=== PATIENT | female | born 1945 | race Caucasian/White ===

== ENCOUNTER → 2020-01-05 17:40 | Outpatient (CLI) | payer MEDICARE, SELFPAY ==
[2020-01-05 18:11] LABS: Chol/HDL Ratio 3.3 (1-3.5); Cholesterol 180 mg/dl (140-200); HDL Cholesterol 54 mg/dl (40-60); Triglycerides 165 mg/dl (30-150); VLDL Cholesterol 33 mg/dL (0-40)
[2020-01-05 18:22] LABS: Direct LDL Cholesterol 102.91 mg/dL (100-129)
== END ==
PROVIDERS: Visit Provider Family Medicine
DX: I10 Essential (primary) hypertension (principal)
CPT/HCPCS: 80061

== ENCOUNTER → 2020-09-27 15:41 | Outpatient (CLI) | payer MEDICARE, SELFPAY ==
[2020-09-27 15:51] LABS: Chloride 102 mmol/L (98-107); Potassium 4.7 mmoL/L (3.5-5.1); Sodium 137 mmol/L (136-145)
[2020-09-27 15:53] LABS: Alanine Aminotransferase 21 U/L (12-78); Aspartate Amino Transferase 35 U/L (14-36); Blood Urea Nitrogen 16 mg/dl (7-17); Estimated Glomerular Filt Rate 81 ml/min (>60); GFR (African American) 98 ML/MIN (>60)
[2020-09-27 15:54] LABS: Albumin Level 4.7 g/dl (3.5-5.0); Albumin/Globulin Ratio 1.6 (1.1-1.8); Alkaline Phosphatase 81 U/L (38-126); Anion Gap 12.7 mEq/L (5-15); Bilirubin,Total 0.8 mg/dl (0.2-1.3); Calcium 10.3 mg/dl (8.4-10.2); Carbon Dioxide 27 mmol/L (22.0-30.0); Chol/HDL Ratio 3.6 (1-3.5); Cholesterol 210 mg/dl (140-200); Globulin 2.9 g/dL (1.3-3.2); Glucose 100 mg/dl (74-100); HDL Cholesterol 59 mg/dl (40-60); Total Protein,Serum 7.6 g/dl (6.3-8.2); Triglycerides 165 mg/dl (30-150); VLDL Cholesterol 33 mg/dL (0-40)
[2020-09-27 15:55] LABS: Basophils # 0.1 K/mm3 (0-0.2); Eosinophils # 0.1 K/mm3 (0.0-0.4); Eosinophils % 2.3 % (0.1-12.0); Hematocrit 41.9 % (37.0-47.0); Hemoglobin 13.6 g/dL (12.2-16.2); Lymphocytes # 1.6 K/mm3 (0.7-4.5); Lymphocytes % 30.5 % (10-50); Mean Corpuscular HGB Conc 32.6 g/dL (31.8-35.4); Mean Corpuscular Hemoglobin 31.3 pg (27.0-31.2); Mean Corpuscular Volume 96.2 fl (81-99); Mean Platelet Volume 9.5 fl (7.4-10.4); Monocytes # 0.5 K/mm3 (0.1-1.0); Monocytes % 8.5 % (1.7-9.3); Neutrophils # 3.1 K/mm3 (1.8-7.8); Neutrophils % 57.7 % (37.0-80.0); Platelet Count 249 K/mm3 (142-424); Red Blood Count 4.35 M/mm3 (4.20-5.40); White Blood Count 5.3 K/mm3 (4.8-10.8)
[2020-09-27 16:06] LABS: Direct LDL Cholesterol 109.83 mg/dL (100-129)
[2020-09-27 16:12] LABS: T4 (Thyroxine) 9.3 ug/dl (5.53-11.0)
[2020-09-27 16:25] LABS: Thyroid Stimulating Hormone 1.65 uIU/mL (0.465-4.68)
== END ==
PROVIDERS: Visit Provider Family Medicine
DX: Z00.00 Encounter for general adult medical examination without abnormal findings (principal); I10 Essential (primary) hypertension
CPT/HCPCS: 80053; 80061; 84436; 84443; 85025

== ENCOUNTER → 2020-12-12 10:22 | Outpatient (CLI) | payer MEDICARE, SELFPAY ==
--- NOTE | 2020-12-12 10:22 | US_ITS ---
PROCEDURE: US GALLBLADDER CLINICAL INDICATION: ruq pain COMPARISON: No exams were available for comparison FINDINGS: Pancreas: Pancreatic tail is not well delineated. The remaining pancreas has an unremarkable appearance. Liver: There is a small hepatic cyst at 1.4 cm involving the left hepatic lobe.. There is appropriate direction of blood flow within a non dilated portal vein. Right kidney: Unremarkable appearing. No hydronephrosis. Gallbladder: There is a gallstone present. No gallbladder wall thickening, pericholecystic fluid, or biliary dilatation is evident. Common bile duct is 6 mm. IMPRESSION: Cholelithiasis. Small hepatic cyst. Dictated by: Olaf Drake MD 12/12/2020 13:18 Olaf Drake MD in [place] 12/12/2020 13:18
== END ==
PROVIDERS: PCP Family Medicine; Visit Provider Family Medicine
DX: R10.11 Right upper quadrant pain (principal)
CPT/HCPCS: 76705

== ENCOUNTER → 2021-10-19 10:43 | Outpatient (CLI) | payer MEDICARE, SELFPAY ==
--- NOTE | 2021-10-19 10:46 | XR_ITS ---
FINAL REPORT CLINICAL HISTORY: cough, history of breast ca FINDINGS: Two views of the chest were obtained. The heart size and pulmonary vascularity are within normal limits. The mediastinum is normal. There is mild left lung base atelectasis or scarring. There is no pneumothorax. The bony thorax is intact. IMPRESSION: Mild left base atelectasis or scarring. Reviewed, Interpreted and Dictated by Stevo Degroot III, MD Transcribed by Tico Gloria Authenticated by Stevo Degroot III, MD on 10/19/2021 12:53:15 PM [facility]
[2021-10-19 13:17] LABS: Basophils # 0.1 K/mm3 (0-0.2); Basophils % 1.1 % (0.1-2.0); Eosinophils # 0.1 K/mm3 (0.0-0.4); Eosinophils % 1.7 % (0.1-12.0); Hematocrit 38.7 % (37.0-47.0); Hemoglobin 12.9 g/dL (12.2-16.2); Lymphocytes # 1.5 K/mm3 (0.7-4.5); Lymphocytes % 21.1 % (10-50); Mean Corpuscular HGB Conc 33.4 g/dL (31.8-35.4); Mean Corpuscular Hemoglobin 32.8 pg (27.0-31.2); Monocytes # 0.5 K/mm3 (0.1-1.0); Monocytes % 7.3 % (1.7-9.3); Neutrophils # 4.8 K/mm3 (1.8-7.8); Platelet Count 237 K/mm3 (142-424); Red Blood Count 3.95 M/mm3 (4.20-5.40)
[2021-10-19 13:30] LABS: Chloride 105 mmol/L (98-107); Potassium 3.8 mmoL/L (3.5-5.1); Sodium 136 mmol/L (136-145)
[2021-10-19 13:32] LABS: Blood Urea Nitrogen 13 mg/dl (7-17); Estimated Glomerular Filt Rate 81 ml/min (>60); GFR (African American) 98 ML/MIN (>60)
[2021-10-19 13:33] LABS: Alanine Aminotransferase 21 U/L (12-78); Albumin Level 4.1 g/dl (3.5-5.0); Albumin/Globulin Ratio 1.5 (1.1-1.8); Alkaline Phosphatase 54 U/L (38-126); Anion Gap 8.8 mEq/L (5-15); Aspartate Amino Transferase 30 U/L (14-36); Bilirubin,Total 1.2 mg/dl (0.2-1.3); Calcium 9.3 mg/dl (8.4-10.2); Carbon Dioxide 26 mmol/L (22.0-30.0); Chol/HDL Ratio 3.5 (1-3.5); Cholesterol 215 mg/dl (140-200); Globulin 2.8 g/dL (1.3-3.2); Glucose 115 mg/dl (74-100); HDL Cholesterol 61 mg/dl (40-60); Total Protein,Serum 6.9 g/dl (6.3-8.2); Triglycerides 205 mg/dl (30-150); VLDL Cholesterol 41 mg/dL (0-40)
[2021-10-19 13:41] LABS: Hemoglobin A1C 6.5 % (4.0-6.0)
[2021-10-19 13:45] LABS: Direct LDL Cholesterol 107.82 mg/dL (100-129)
[2021-10-19 14:03] LABS: Thyroid Stimulating Hormone 0.81 uIU/mL (0.465-4.68)
[2021-10-19 14:15] LABS: 25-OH Vitamin D, Total 43.8 ng/mL (30-100)
== END ==
PROVIDERS: PCP Family Medicine; Visit Provider Family Medicine
DX: R05.9 Cough, unspecified (principal); Z00.00 Encounter for general adult medical examination without abnormal findings; E11.9 Type 2 diabetes mellitus without complications; E55.9 Vitamin D deficiency, unspecified
CPT/HCPCS: 71046; 80053; 80061; 82306; 83036; 84443; 85025

== ENCOUNTER → 2022-11-08 23:15 | Outpatient (CLI) | payer MEDICARE, SELFPAY ==
[2022-11-08 18:11] LABS: Basophils # 0.1 K/mm3 (0-0.2); Basophils % 0.7 % (0.1-2.0); Eosinophils # 0.1 K/mm3 (0.0-0.4); Eosinophils % 1.5 % (0.1-12.0); Hematocrit 42.2 % (37.0-47.0); Hemoglobin 13.4 g/dL (12.2-16.2); Lymphocytes # 1.5 K/mm3 (0.7-4.5); Lymphocytes % 20.5 % (10-50); Mean Corpuscular HGB Conc 31.7 g/dL (31.8-35.4); Mean Corpuscular Hemoglobin 31.2 pg (27.0-31.2); Mean Corpuscular Volume 98.4 fl (81-99); Mean Platelet Volume 9.4 fl (7.4-10.4); Monocytes # 0.6 K/mm3 (0.1-1.0); Monocytes % 7.7 % (1.7-9.3); Neutrophils # 5.1 K/mm3 (1.8-7.8); Neutrophils % 69.5 % (37.0-80.0); Platelet Count 284 K/mm3 (142-424); Red Blood Count 4.29 M/mm3 (4.20-5.40); Red Cell Distribution Width 13.6 % (11.5-17.5); White Blood Count 7.3 K/mm3 (4.8-10.8)
[2022-11-08 18:26] LABS: Alanine Aminotransferase 20 U/L (12-78); Albumin Level 4.2 g/dl (3.5-5.0); Albumin/Globulin Ratio 1.7 (1.1-1.8); Alkaline Phosphatase 46 U/L (38-126); Anion Gap 18.4 mEq/L (5-15); Aspartate Amino Transferase 31 U/L (14-36); Bilirubin,Total 1.3 mg/dl (0.2-1.3); Blood Urea Nitrogen 17 mg/dl (7-17); Calcium 9.2 mg/dl (8.4-10.2); Carbon Dioxide 28 mmol/L (22.0-30.0); Chloride 96 mmol/L (98-107); Cholesterol 194 mg/dl (140-200); Estimated Glomerular Filt Rate 81 ml/min (>60); GFR (African American) 98 ML/MIN (>60); Globulin 2.5 g/dL (1.3-3.2); Glucose 94 mg/dl (74-100); HDL Cholesterol 65 mg/dl (40-60); Potassium 4.4 mmoL/L (3.5-5.1); Sodium 138 mmol/L (136-145); Total Protein,Serum 6.7 g/dl (6.3-8.2); Triglycerides 156 mg/dl (30-150); VLDL Cholesterol 31 mg/dL (0-40)
[2022-11-08 18:37] LABS: Direct LDL Cholesterol 105.28 mg/dL (100-129)
[2022-11-08 18:55] LABS: Thyroid Stimulating Hormone 0.06 uIU/mL (0.465-4.68)
== END ==
PROVIDERS: PCP Family Medicine; Visit Provider Family Medicine
DX: H92.09 Otalgia, unspecified ear (principal); F39 Unspecified mood [affective] disorder; I10 Essential (primary) hypertension
CPT/HCPCS: 80053; 80061; 84443; 85025

== ENCOUNTER 2023-10-31 10:12 | Outpatient (CLI) | payer MEDICARE, SELFPAY ==
[2023-10-30 18:33] LABS: Basophils # 0.1 K/mm3 (0-0.2); Basophils % 0.8 % (0.1-2.0); Eosinophils # 0.2 K/mm3 (0.0-0.4); Eosinophils % 3.2 % (0.1-12.0); Hemoglobin 13.5 g/dL (12.2-16.2); Lymphocytes # 1.6 K/mm3 (0.7-4.5); Lymphocytes % 27.3 % (10-50); Mean Corpuscular HGB Conc 32.1 g/dL (31.8-35.4); Mean Corpuscular Hemoglobin 31.7 pg (27.0-31.2); Mean Corpuscular Volume 98.6 fl (81-99); Mean Platelet Volume 10.3 fl (7.4-10.4); Monocytes # 0.5 K/mm3 (0.1-1.0); Monocytes % 8.7 % (1.7-9.3); Neutrophils # 3.5 K/mm3 (1.8-7.8); Neutrophils % 59.9 % (37.0-80.0); Platelet Count 262 K/mm3 (142-424); Red Blood Count 4.26 M/mm3 (4.20-5.40); Red Cell Distribution Width 13.9 % (11.5-17.5); White Blood Count 5.8 K/mm3 (4.8-10.8)
[2023-10-30 20:02] LABS: Alanine Aminotransferase 21 U/L (12-78); Albumin Level 4.3 g/dl (3.5-5.0); Albumin/Globulin Ratio 1.6 (1.1-1.8); Alkaline Phosphatase 52 U/L (38-126); Anion Gap 14.1 mEq/L (5-15); Aspartate Amino Transferase 33 U/L (14-36); Bilirubin,Total 0.9 mg/dl (0.2-1.3); Blood Urea Nitrogen 11 mg/dl (7-17); Calcium 9.3 mg/dl (8.4-10.2); Carbon Dioxide 26 mmol/L (22.0-30.0); Chloride 104 mmol/L (98-107); Chol/HDL Ratio 3.3 (1-3.5); Cholesterol 208 mg/dl (140-200); Estimated Glomerular Filt Rate 81 ml/min (>60); GFR (African American) 98 ML/MIN (>60); Globulin 2.7 g/dL (1.3-3.2); Glucose 106 mg/dl (74-100); HDL Cholesterol 63 mg/dl (40-60); Potassium 4.1 mmoL/L (3.5-5.1); Sodium 140 mmol/L (136-145); Triglycerides 216 mg/dl (30-150); VLDL Cholesterol 43 mg/dL (0-40)
[2023-10-30 20:14] LABS: Direct LDL Cholesterol 104.12 mg/dL (100-129)
[2023-10-30 20:32] LABS: Thyroid Stimulating Hormone 2.14 uIU/mL (0.465-4.68)
== END 2023-10-31 23:59 | disposition home or self-care (01) ==
LOC: LAB.DROPOF 10:13
PROVIDERS: PCP Family Medicine; Visit Provider Family Medicine
DX: I10 Essential (primary) hypertension (principal); Z85.3 Personal history of malignant neoplasm of breast
CPT/HCPCS: 80053; 80061; 84443; 85025

== ENCOUNTER 2024-04-29 11:34 | Outpatient (CLI) | payer MEDICARE, SELFPAY | END 2024-04-29 23:59 | disposition home or self-care (01) | LOC: LAB.DROPOF 04-30 13:42 | PROVIDERS: PCP Nurse Practitioner Family; Visit Provider Nurse Practitioner Family | DX: R39.9 Unspecified symptoms and signs involving the genitourinary system (principal) | CPT/HCPCS: 87086; 87088; 87186 ==

== ENCOUNTER 2024-11-24 13:55 | Outpatient (CLI) | payer MEDICARE, SELFPAY ==
--- OUTSIDE RECORDS SUMMARY | 2024-11-24 13:58 | XMS_ITS | Encounter Summary ---
Author Organization [facility] Address [address] [place] [address] Care Team Providers Care Backup Sawyer Name Role Phone Davon Durand MD Primary Care Provider [phone] Jailene Keating NP Unavailable [phone] Srinivasa Beaulieu MD Unavailable [phone] Sharmin Mancilla Unavailable Unavailable Estefania Underwood Unavailable [phone] Ceci Lomeli NP Unavailable Unavailable Singh Davis MD Unavailable [phone] Annabel Ojeda RN Unavailable [phone] Chrissy Radford RN Unavailable Unavailable Akosua Moss MD Unavailable [phone] Guerline Stern NP Unavailable [phone] Waylon Penn MD Unavailable [phone] Vic Moss MD Unavailable [phone] Encounter Details Date Type Department Care Team (Late st Contact Info) Description 07/17/2017 Orders Only C-Level, Diagnostic Services [address] [place] [address] Desmond Duran, RT Screening for osteoporosis Social History Tobacco Use Types Packs/Day Years Used Date Smoking Tobacco: Never Smokeless Tobacco: Never Alcohol Use Standard Drinks/Week Comments No 0 (1 standard drink = 0.6 oz pur e alcohol) Comments Unknown Sex and Gender Information Value Date Recorded Sex Assigned at Not on file Legal Sex Female 4:20 PM EDT Gender Identity Not on file Sexual Orientation Not on file documented as of this encounter Plan of Treatment Upcoming Encounters Date Type Department Care Team (Late st Contact Info) Description 11/27/2024 12:00 PM EDT Appointment [facility], [address] [place] [address] Srinivasa Beaulieu MD [address] [place] [address] 11/27/2024 12:15 PM EDT Appointment [facility], [address] [place] [address] 05/06/2025 12:30 PM EST Appointment [facility] Medical Office Building, [address] [place] [address] 05/06/2025 1:30 PM EST Appointment [facility] Physicians - Surgical Oncology, [address] [place] [id number] Akosua Moss MD [address] [place] [address]. [address] [place] [address] documented as of this encounter Visit Diagnoses Diagnosis Screening for osteoporosis Special screening for osteoporosis documented in this encounter Additional Health Concerns Infection Onset Date Last Indicated Resolved Time Pneumonia Comment:10/20/17; requires respiratory isolation. 10/21/2017 10/21/2017 10/24/2017 10:33 AM EDT documented as of this encounter Care Teams Backup Sawyer Relationship Specialty Start Date End Date Davon Durand MD PCP - General Family Medicine 08/30/15 Jailene Keating NP [address] [place] [address] Registered Nurse 03/04/18 Srinivasa Beaulieu MD [address] [place] [address] Hematology and Oncology 05/19/18 Sharmin Mancilla Underwear Hemmer Social Work 10/29/18 Estefania Underwood PA [address] [place] [address] Surgical Oncology 08/26/20 Ceci Lomeli NP [address] [place] [address] Nurse Practitioner Nurse Practitioner, [facility] 09/01/20 Singh Davis MD [address] [place] [address] General Surgery 01/12/21 Annabel Ojeda RN [address] [place] [address] Registered Nurse 01/16/21 Chrissy Radford, RN Registered Nurse 07/11/21 Akosua Moss MD [address] [place] [address] Surgical Oncology 10/12/21 [place] [address] [facility] [place], [place] [address] Nurse Practitioner Nurse Practitioner, Family 04/20/22 Waylon Penn MD [address] [facility] [place], [place] [address] Female Pelvic Medicine and Reconstructive Surgery 06/24/22 [place] [address] [place], [place] [address] Otolaryngology 12/05/22 documented as of this encounter
--- OUTSIDE RECORDS SUMMARY | 2024-11-24 13:59 | XMS_ITS | Encounter Summary ---
Author Organization [facility] Address [address] [place] [address] Care Team Providers Care Marble Cleaner Name Role Phone Davon Durand MD Primary Care Provider [phone] Jailene Keating NP Unavailable Srinivasa Beaulieu MD Unavailable [phone] Sharmin Mancilla Unavailable Unavailable Estefania Underwood Unavailable [phone] Ceci Lomeli NP Unavailable Unavailable Singh Davis MD Unavailable [phone] Annabel Ojeda RN Unavailable [phone] Chrissy Radford RN Unavailable Unavailable Akosua Moss MD Unavailable [phone] Guerline Stern NP Unavailable [phone] Waylon Penn MD Unavailable Vic Moss MD Unavailable [phone] Encounter Details Date Type Department Care Team (Late st Contact Info) Description 07/24/2017 Clinical Update [facility] Physicians - Surgical Oncology, [place] [address] [facility], [address] [place] [address] Ruby, Tomeka M., RN Social History Tobacco Use Types Packs/Day Years [...] Description 11/27/2024 12:00 PM EDT Appointment [facility], [address] [place] [address] Srinivasa Beaulieu MD [address] [place] [address] 11/27/2024 12:15 PM EDT Appointment [facility], [address] [place] [address] 05/06/2025 12:30 PM EST Appointment [facility] Medical Office Building, [address] [place] [address] 05/06/2025 1:30 PM EST Appointment [facility] Physicians - Surgical Oncology, [address] [place] [id number] Akosua Moss MD [address] [place], [place] [address]. [address] [place] [address] documented as of this encounter Visit Diagnoses Not on filedocumented in this encounter Additional Health Concerns Infection Onset Date Last Indicated Resolved Time Pneumonia Comment:10/20/17; requires respiratory isolation. 10/21/2017 10/21/2017 10/24/2017 10:33 AM EDT documented as of this encounter Care Teams Marble Cleaner Relationship Specialty Start Date End Date Davon Durand MD PCP - General Family Medicine 08/30/15 Jailene Keating NP [address] [place] [address] Registered Nurse 03/04/18 Srinivasa Beaulieu MD [address] [place] [address] Hematology and Oncology 05/19/18 Sharmin Mancilla Pole Setter Social Work 10/29/18 Estefania Underwood PA [address] [place] [address] Surgical Oncology 08/26/20 Ceci Lomeli NP [address] [place] [id number] Nurse Practitioner Nurse Practitioner, Family 09/01/20 Singh Davis MD [address] [place] [address] General Surgery 01/12/21 Annabel Ojeda RN [address] [place] [address] Registered Nurse 01/16/21 Chrissy Radford, RN Registered Nurse 07/11/21 Akosua Moss MD [address] [place] [address] Surgical Oncology 10/12/21 [place] [address] [facility]. [address] [place] [address] Nurse Practitioner Nurse Practitioner, Family 04/20/22 Waylon Penn MD [address] [facility]. [address] [place], [place] [address] Female Pelvic Medicine and Reconstructive Surgery 06/24/22 [place] [address] [place] [address] Otolaryngology 12/05/22 documented as of this encounter
--- OUTSIDE RECORDS SUMMARY | 2024-11-24 13:59 | XMS_ITS | Encounter Summary ---
Author Organization [facility] Address [address] [place] [address] Care Team Providers Care Dispensing Optician Name Role Phone Davon Durand MD Primary Care Provider [phone] Jailene Keating NP Unavailable [phone] Srinivasa Beaulieu MD Unavailable [phone] Sharmin Mancilla Unavailable Unavailable Estefania Underwood Unavailable Ceci Lomeli NP Unavailable Unavailable Singh Davis MD Unavailable [phone] Annabel Ojeda RN Unavailable [phone] Chrissy Radford RN Unavailable Unavailable Akosua Moss MD Unavailable [phone] Guerline Stern NP Unavailable [phone] Waylon Penn MD Unavailable Vic Moss MD Unavailable [phone] Encounter Details Date Type Department Care Team (Latest Contact Info) Description 07/01/2017 Preop Surgical Orders [facility] Physicians - Surgical Oncology, [place] [address] [facility], [address] [place] [address] Alice, Tomeka M., RN Malignant neoplasm of right breast in female, estrogen receptor positive, unspecified site of breast ([facility]) (Primary Dx) Social History Tobacco Use Types Packs/Day Years [...] Description 11/27/2024 12:00 PM EDT Appointment [facility], [address] [place] [address] Srinivasa Beaulieu MD [address] [place] [address] 11/27/2024 12:15 PM EDT Appointment [facility], [address] [place] [address] 05/06/2025 12:30 PM EST Appointment [facility] Medical Office [facility], [address] [place] [address] 05/06/2025 1:30 PM EST Appointment [facility] Physicians - Surgical Oncology, [address] [place] [id number] Akosua Moss MD [address] [place] [address]. [address] [place] [address] documented as of this encounter Visit Diagnoses Diagnosis Malignant neoplasm of right breast in female, estrogen receptor positive, unspecified site of breast ([facility])- Primary documented in this encounter Additional Health Concerns Infection Onset Date Last Indicated Resolved Time Pneumonia Comment:10/20/17; requires respiratory isolation. 10/21/2017 10/21/2017 10/24/2017 10:33 AM EDT documented as of this encounter Care Teams Dispensing Optician Relationship Specialty Start Date End Date Davon Durand MD PCP - General Family Medicine 08/30/15 Jailene Keating NP [address] [place] [address] Registered Nurse 03/04/18 Srinivasa Beaulieu MD [address] [place] [address] Hematology and Oncology 05/19/18 Sharmin Mancilla Shop Helper Social Work 10/29/18 Estefania Underwood PA [address] [place] [address] Surgical Oncology 08/26/20 Ceci Lomeli NP [address] [place] [address] Nurse Practitioner Nurse Practitioner, Family 09/01/20 Singh Davis MD [address] [place] [address] General Surgery 01/12/21 Annabel Ojeda, RN [address] [place] [address] Registered Nurse 01/16/21 Chrissy Radford RN Registered Nurse 07/11/21 Akosua Moss MD [address] [place] [address] Surgical Oncology 10/12/21 Guerline Stern, WIRELESS SALES REPRESENTATIVE [address] [place] [address] Nurse Practitioner Nurse Practitioner, Family 04/20/22 Waylon Penn MD [address] [facility] [place], [place] [address] Female Pelvic Medicine and Reconstructive Surgery 06/24/22 [place] [address] [place], [place] [address] Otolaryngology 12/05/22 documented as of this encounter
--- OUTSIDE RECORDS SUMMARY | 2024-11-24 13:59 | XMS_ITS | Encounter Summary ---
Author Organization [facility] Address [address] [place] [address] Care Team Providers Care Transportation Security Screener Name Role Phone Davon Durand MD Primary Care Provider [phone] Jailene Keating NP Unavailable [phone] Srinivasa Beaulieu MD Unavailable [phone] Sharmin Mancilla Unavailable Unavailable Estefania Underwood Unavailable [phone] Ceci Lomeli NP Unavailable Unavailable Singh Davis MD Unavailable [phone] Annabel Ojeda RN Unavailable [phone] Chrissy Radford RN Unavailable Unavailable Akosua Moss MD Unavailable [phone] Guerline Stern NP Unavailable [phone] Waylon Penn MD Unavailable [phone] Vic Moss MD Unavailable [phone] Encounter Details Date Type Department Care Team (Latest Contact Info) Description 06/18/2018 Preop Surgical Orders [facility] Physicians - Urogynecology[address] [place] [address] Dasha Peralta, RN [address] [place] [address] Uterine prolapse (Primary Dx) Social History Tobacco Use Types Packs/Day Years Used Date Smoking Tobacco: Never Smokeless Tobacco: Never Alcohol Use Standard Drinks/Week Comments No 0 (1 standard drink = 0.6 oz pur e alcohol) Comments No Sex and Gender Information Value Date Recorded Sex Assigned at Not on file Legal Sex Female 4:20 PM EDT Gender Identity Not on file Sexual Orientation Not on file documented as of this encounter Functional Status * Are you blind or do you have difficulty seeing, even when wearing glasses? Answer Date of Assessment Author No 10/20/2017 3:43 PM EDT Magdy Bennett RN * Do you have serious difficulty walking or climbing stairs? Answer Date of Assessment Author No 10/20/2017 3:43 PM EDT Magdy Bennett RN * Do you have difficulty dressing or bathing? Answer Date of Assessment Author No 10/20/2017 3:43 PM Magdy Duffy RN * Because of a physical, mental, or emotional condition, do you have difficulty doing errands alone such as a visiting a doctor's office or shopping? Answer Date of Assessment Author No 10/20/2017 3:43 PM Magdy Duffy RN documented as of this encounter Mental Status * Because of a physical, mental, or emotional condition, do you have serious difficulty concentrating, remembering, or making decisions? Answer Entry Date Author No 10/20/2017 3:43 PM Magdy Duffy RN documented in this encounter Plan of Treatment Upcoming Encounters Date Type Department Care Team (Late st Contact Info) Description 11/27/2024 12:00 PM EDT Appointment [facility] [address] [facility] [place] [address] Srinivasa Beaulieu MD [address] [place] [address] 11/27/2024 12:15 PM EDT Appointment [facility] [address] [place] [address] 05/06/2025 12:30 PM EST Appointment [facility] Medical Office Building, [facility] [address] [place] [address] [address] [place] [address] 05/06/2025 1:30 PM EST Appointment [facility] Physicians - Surgical Oncology, [address] [place] [address] [place] [address] [place], [place] [address]. [address] [place] [address] documented as of this encounter Results * CBC (COMPLETE BLOOD COUNT) (06/23/2018 8:17 PM EST) WBC 5.8 3.8 - 10.8 10*3/uL [facility] RBC 3.82 3.80 - 5.10 10*6/uL [facility] Hemoglobin 12.3 11.7 - 15.5 g/dL [facility] Hematocrit Blood 35.8 35.0 - 45.0 % [facility] MCV 93.6 80.0 - 100.0 fL [facility] MCH 32.3 27.0 - 33.0 pg [facility] MCHC 34.5 32.0 - 36.0 g/dL [facility] RDW 13.0 11.0 - 15.0 % [facility] Platelets 192 140 - 400 10*3/uL [facility] MPV 9.7 7.5 - 11.5 fL [facility] EX[facility] Whole Blood (Blood) 06/23/2018 8:17 PM EST 06/23/2018 8:16 PM EST us Waylon Penn MD HEMATOLOGY ORDERABLES Final Result [facility] EXTERNAL LAB [address] documented in this encounter Visit Diagnoses Diagnosis Uterine prolapse- Primary Uterine prolapse without mention of vaginal wall prolapse documented in this encounter Care Teams Transportation Security Screener Relationship Specialty Start Date End Date Davon Durand MD PCP - General Family Medicine 08/30/15 Jailene Keating NP [address] [place] [address] Registered Nurse 03/04/18 Srinivasa Beaulieu MD [address] [place] [address] Hematology and Oncology 05/19/18 Sharmin Mancilla Representative Social Work 10/29/18 Estefania Underwood PA [address] [place] [address] Surgical Oncology 08/26/20 Ceci Lomeli NP [address] [place] [address] Nurse Practitioner Nurse Practitioner, Family 09/01/20 Singh Davis MD [address] [place] [address] General Surgery 01/12/21 Annabel Ojeda RN [address] [place] [address] Registered Nurse 01/16/21 Chrissy Radford RN Registered Nurse 07/11/21 Akosua Moss MD [address] [place] [address] Surgical Oncology 10/12/21 [place] [address] [facility]. [address] [place] [address] Nurse Practitioner Nurse Practitioner, Family 04/20/22 Waylon Penn MD [address] [facility] [place] [address] Female Pelvic Medicine and Reconstructive Surgery 06/24/22 [place] [address] [place] [address] Otolaryngology 12/05/22 documented as of this encounter
--- OUTSIDE RECORDS SUMMARY | 2024-11-24 13:59 | XMS_ITS | Clinical Summary ---
Author Organization [facility] Address [address] [place] [address] Care Team Providers Care Roll Coverer Name Role Phone Davon Durand MD Primary Care Provider [phone] Jailene Keating NP Unavailable Srinivasa Beaulieu MD Unavailable [phone] Sharmin Mancilla Unavailable Unavailable Estefania Underwood Unavailable [phone] Ceci Lomeli NP Unavailable Unavailable Singh Davis MD Unavailable [phone] Annabel Ojeda RN Unavailable Chrissy Radford RN Unavailable Unavailable Akosua Moss MD Unavailable Guerline Stern NP Unavailable [phone] Waylon Penn MD Unavailable [phone] Vic Moss MD Unavailable [phone] Allergies Active Allergy Reactions Criticality Noted Date Comments Adhesive Rash Low 11/22/2015 Paper tape and tegaderm okay Adhesive Tape-Silicones Rash 11/22/2015 Paper tape and tegaderm okay Ciprofloxacin Other (See Comments) 05/15/2017 Heart racing and head pressure Medications atorvastatin (LIPITOR) 10 mg Tablet Take 10 mg by mouth nightly at bedtime. Active ERGOCALCIFEROL, VITAMIN D2, (VITAMIN D PO) Take 1 Tablet by mouth daily. 1000iu daily Active fexofenadine (YEFRI ALLERGY) 180 mg tablet daily Active multivitamin (THERAGRAN) Tablet Take 1 Tab by mouth daily. Active losartan (COZAAR) 50 mg Tablet 2 Active Denosumab (Prolia) 60 mg/mL Syringe 60 mg by Subcutaneous route every 6 months. Due 05/2024 Active doxycycline (VIBRAMYCIN) 100 mg capsule Take 1 Capsule (100 mg) by mouth 2 times daily. 20 Capsule 4 Active apixaban (Eliquis DVT-PE Treat 30D Start) 5 mg (74 tabs) starter pack Take two tablets in the morning and two at night for seven days, then take one tablet twice daily. 74 Tablet 4 Active aspirin 81 mg Tablet, Delayed Release (E.C.) Take 81 mg by mouth every other day. Active OTHER - SEE EPIC ADMIN INSTRUCTIONS Take 4 Tablets by mouth daily. Nutrafol hair vitamin Active Active Problems Problem Noted Date Diagnosed Date Primary osteoarthritis of left knee 12/12/2023 Other constipation 01/16/2021 Senile osteoporosis 09/01/2020 History of breast cancer 10/23/2018 Uterovaginal prolapse, incomplete 06/24/2018 Uterine prolapse 06/18/2018 Overview (06/18/2018): Added automatically from request for surgery [id number] Screening for osteoporosis 05/19/2018 Pneumonitis 10/20/2017 Malignant neoplasm of right female breast ([facility]) 07/18/2017 Cancer Staging:Pathologic stage from 07/30/2017:Stage IA(pT1c, pN1mi(sn), cM0, G2, ER: Positive, TX: Positive, HER2: Negative, Oncotype DX score: 21) - Signed by Akosua Moss MD on 07/30/2017 Primary osteoarthritis involving multiple joints 12/05/2015 Hyperlipidemia 12/05/2015 Primary osteoarthritis of right knee 12/01/2015 Superficial thrombosis of leg, right Resolved Problems Problem Noted Date Diagnosed Date Resolved Date Generalized abdominal pain 01/16/2021 0 10/02/2021 Family History Medical History Relation Name Comments Cancer Brother Alfonso Hernandez lung cancer Cancer Father Reggie Hernandez lung cancer Lung Cancer Father Reggie Hernandez Breast Cancer Mother Andi Hernandez Cancer Mother Andi Hernandez breast cancer Anesthesia Complications Neg Hx Heart Problems Neg Hx Relation Name Status Comments Brother Alfonso Hernandez Alive Father Reggie Hernandez Maternal Grandfather Maternal Grandmother Mother Andi Hernandez Alive Paternal Grandfather Paternal Grandmother Social History Tobacco Use Types Packs/Day Years Used Date Smoking Tobacco: Never Smokeless Tobacco: Never Tobacco Cessation:Counseling Given: Not Answered Alcohol Use Standard Drinks/Week Comments No 0 (1 standard drink = 0.6 oz pur e alcohol) Comments No Sex and Gender Information Value Date Recorded Sex Assigned at Not on file Legal Sex Female 4:20 PM EDT Gender Identity Not on file Sexual Orientation Not on file Last Filed Vital Signs Vital Sign Reading Time Taken Comments Blood Pressure 135/65 05/29/2024 10:09 AM EST Pulse 66 05/29/2024 10:09 AM EST Temperature 36.7 C (98 F) 05/29/2024 10:09 AM EST Respiratory Rate 17 05/29/2024 10:09 AM EST Oxygen Saturation 100% 05/29/2024 10:09 AM EST Inhaled Oxygen Concentration - - Weight 68 kg (149 lb 14.6 oz) 05/29/2024 10:09 A M EST Height 154.9 cm (5' 1 ) 05/29/2024 10:09 AM EST Body Mass Index 28.33 05/29/2024 10:09 AM EST Plan of Treatment Upcoming Encounters Date Type Department Care Team (Late st Contact Info) Description 11/27/2024 12:00 PM EDT Appointment [facility] [place] [address] [place] [address] Srinivasa Beaulieu MD [address] [place] [address] 11/27/2024 12:15 PM EDT Appointment [facility], [facility] [place] [address] [place] [address] 05/06/2025 12:30 PM EST Appointment The [facility], [facility] [address] [place] [address] [address] [place] [address] 05/06/2025 1:30 PM EST Appointment [facility] - Surgical Oncology, [address] [place] [phone] Akosua Moss MD [address] [place], [place] [address]e. [address] [place] [address] Health Maintenance Due Date Last Done Comments Lipid Monitoring 1961 Tetanus Vaccination (Every 1 0 Years) 1962 Pneumococcal Vaccine: 50+ Ye ars (1 of 1 - PCV) 1994 Zoster-RZV(Shingrix) (1 of 2) 1994 Fall Risk Assessment 2009 RSV Vaccines (1 - 1-dose 75+ series) 2019 COVID-19 Vaccine ( - 2023-2 5 season) 2024 04/19/2021, 07/25/2020, 06/29/2020 Advance Care Planning 06/17/2024 BMI Counseling 06/17/2024 Depression Screening 06/17/2024 Influenza Vaccination (Seaso n Ended) 2025 Osteoporosis Screening 08/13/2028 4, 08/29/2020, 08/29/2020, Additional history exists Medical Devices Implanted Type Area Statement Request Clerk Device Identifier Shelf Expiration Date Model / Serial / Lot Cement Bone Simplex Tobramycin Implanted:Qty : 2 on 12/05/2015 by Desmond Jeronimo MD at [facility] Right: Knee * OMEGA 12/14/2016 [id number] / / [id number] Lateral Insert-A Implanted:Qty : 1 on 12/05/2015 by Desmond Jeronimo MD at [facility] Right: Knee 05/16/2016 [id number] ALI / [id number] / Itotal Femoral Implant Implanted:Qty : 1 on 12/05/2015 by Desmond Jeronimo MD at [facility] [place] Right: Knee 05/16/2016 [id number] FI / [id number] / Itotal -Ipoly-32mmx6 mm Patella Implant Implanted:Qty : 1 on 12/05/2015 by Desmond Jeronimo MD at [facility] [place] Right: Knee 07/17/2016 [id number] / / [id number] Medial Insert 6mm Implanted:Qty : 1 on 12/05/2015 by Desmond Jeronimo MD at [facility] [place] Right: Knee 05/16/2016 [id number] 6MI / [id number] / Slng Sgl Incis Altis Implanted:Qty : 1 on 06/24/2018 by Waylon Penn MD at [facility] 8 OR Suburetheral * COLOPLAST 03/03/2021 [id number] / / [id number] Attune Tibial Insert Rotat Platform Ps Size 5 ,5mm Aox - [id number] Implanted:Qty : 1 on 01/27/2024 by Natanael Pelayo MD at [facility] [place] Left: Knee * J \T\ J DEPUY [id number] 12/14/2028 151 6-50-505 / / [id number] Attune Patella Medialized Dome - [id number] Implanted:Qty : 1 on 01/27/2024 by Natanael Pelayo MD at [facility] [place] Left: Knee BREA \T\ [employer] [id number] 09/15/2031 [id number] / / [id number] Attune Rp With Dome - [id number] Implanted:Qty : 1 on 01/27/2024 by Natanael Pelayo MD at [facility] [place] Left: Knee BREA \T\ [employer] [id number] / / Cement Bone Simplex Gentamici - [id number] Implanted:Qty : 1 on 01/27/2024 by Natanael Pelayo MD at [facility] [place] Left: Knee [employer] [id number] 03/16/2025 [id number] / / [id number] Attune Knee System Tibial Base Rotating Platform Sz-4 Cemented - [id number] Implanted:Qty : 1 on 01/27/2024 by Natanael Pelayo MD at [facility] Left: Knee * J \T\ J DEPUY [id number] 10/14/2033 150 [id number] / / [id number] Attune Femoral P/S Narrow Size 5n Left Paco - [id number] Implanted:Qty : 1 on 01/27/2024 by Natanael Pelayo MD at [facility] Left: Knee * J \T\ J DEPUY [id number] 09/14/2033 150 [id number] / / [id number] Procedures Procedure Name Priority Date/Time Associated Diagnosis Comments DXA-DEXA SCAN AXIAL SKELETON Routine 08/13/2023 1:11 PM EST Osteoporosis, unspecified osteoporosis type, unspecified pathological fracture presence from Last 3 Months or Most Recently Relevant to Health Maintenance Results * ROBINA-DEXA SCAN AXIAL SKELETON (08/13/2023 1:11 PM EST) Anatomical Region Laterality Modality Mammography 08/14/2023 11:0 4 AM EST Impressions 08/14/2023 11:06 AM EST IMPRESSION: The bone mineral density is osteopenic. Osteopenia location(s) if present: Left femoral neck and right femoral neck. Secondary causes for low bone mass should be considered in patients with osteopenia and osteoporosis. Patients with clinical history or radiographic documented fragility fracture have presumed osteoporosis. All treatments require clinical judgment. WHO (World Health Organization) criteria for post-menopausal females and males over 50: T-score = Standard deviation from young normal controls Z-score = Standard deviation from age match controls Normal = T-score more positive than -1 Osteopenia = T-score -1.1 to -2.4 Osteoporosis =T-score more negative than -2.5 NOF Recommendations: The NOF recommends an adult under the age of 50 needs 1,000 mg of calcium and 400-800 IU of vitamin D daily. Adults 50 and over need 1,200 mg calcium and 800-1,000 IU of vitamin D daily. Effective therapies for the prevention of osteoporosis include bisphosphonates. FRAX Version 3.08 (10 year fracture Risk Assessment): According to NOF and ISCD FRAX applies to untreated postmenopausal women and men ages 40-90 with a hip T-score between -1.1 and -2.4. FRAX is highly dependent on established risk factors. Risk factors not captured in FRAX model include: frailty, falls, vitamin D deficiency, increased bone turnover, interval significant decline in BMD. Patients with a FRAX of greater than 3% in the hip and greater than 20% for major osteoporotic fracture may benefit from medical therapy for osteoporosis. Signed By: Mariusz Galaviz MD 08/14/2023 11:06 AM EST EXAM: DEXA INDICATION: Osteoporosis. Postmenopausal. COMPARISON: 08/29/2020. REGION ASSESSED: L Spine (L1-L4): BMD= 1.040 g/cm2, T-score= -0.1, Z-score= 2.6, %Change = 7.5% L Hip: BMD= .832 g/cm2, T-score= -0.9, Z-score= 1.1, %Change = 4.8% L Femoral Neck: BMD= .674 g/cm2, T-score= -1.6, Z-score= .7 R Hip: BMD= .816 g/cm2, T-score= -1.0, Z-score= 1.0, %Change = 4.0% R Femoral Neck: BMD= .627 g/cm2, T-score= -2.0, Z-score= .3 FRAX REPORT (WHO 10 Year Fracture Risk Assessment) if applicable: Major Osteoporotic Fracture=NA%, Fracture Risk = NA%, Procedure Note Mariusz Galaviz MD - 08/14/2023 EXAM: DEXA INDICATION: Osteoporosis. Postmenopausal. COMPARISON: 08/29/2020. REGION ASSESSED: L Spine (L1-L4): BMD= 1.040 g/cm2, T-score= -0.1, Z-score= 2.6, %Change =7.5% L Hip: BMD= .832 g/cm2, T-score= -0.9, Z-score= 1.1, %Change = 4.8% L Femoral Neck: BMD= .674 g/cm2, T-score= -1.6, Z-score= .7 R Hip: BMD= .816 g/cm2, T-score= -1.0, Z-score= 1.0, %Change = 4.0% R Femoral Neck: BMD= .627 g/cm2, T-score= -2.0, Z-score= .3 FRAX REPORT (WHO 10 Year Fracture Risk Assessment) if applicable: Major Osteoporotic Fracture=NA%, Fracture Risk = NA%, IMPRESSION: The bone mineral density is osteopenic. Osteopenia location(s) if present: Left femoral neck and right femoralneck. Secondary causes for low bone mass should be considered in patients withosteopenia and osteoporosis. Patients with clinical history orradiographic documented fragility fracture have presumed osteoporosis.All treatments require clinical judgment. WHO (World Health Organization) criteria for post-menopausal females andmales over 50: T-score = Standard deviation from young normal controls Z-score = Standard deviation from age match controls Normal = T-score more positive than -1 Osteopenia = T-score -1.1 to -2.4 Osteoporosis =T-score more negative than -2.5 NOF Recommendations: The NOF recommends an adult under the age of 50needs 1,000 mg of calcium and 400-800 IU of vitamin D daily. Adults 50and over need 1,200 mg calcium and 800-1,000 IU of vitamin D daily.Effective therapies for the prevention of osteoporosis includebisphosphonates. FRAX Version 3.08 (10 year fracture Risk Assessment): According to NOFand ISCD FRAX applies to untreated postmenopausal women and men ages 40-90with a hip T-score between -1.1 and -2.4. FRAX is highly dependent onestablished risk factors. Risk factors not captured in FRAX modelinclude: frailty, falls, vitamin D deficiency, increased bone turnover,interval significant decline in BMD. Patients with a FRAX of greater than3% in the hip and greater than 20% for major osteoporotic fracture may benefit from medical therapy for osteoporosis. Signed By: Mariusz Galaviz MD Kerry Delgado NP IMG DEXA ORDERABLES Final Res ult from Last 3 Months or Most Recently Relevant to Health Maintenance Insurance UHC MEDICARE [address] UHC MEDICARE [address] MEDICARE [place] [id number] Advance Directives For more information, please contact: [phone] Documents on File Type Date Recorded Patient Supply Chain Associate Expl anation Advance Directives and Living Will 01/27/2024 6:45 AM ADVANCE DIRECTIVES Advance Directives and Living Will 12/07/2015 4:56 PM ADVANCE DIRECTIVES Living Will 12/07/2015 * Full Code (Latest Code Status on File) Date Activated Date Inactivated Comments 06/24/2018 3:28 PM 03/08/2019 10:56 AM * Full Code Date Activated Date Inactivated Comments 10/20/2017 1:26 PM 06/24/2018 8:34 AM * Full Code Date Activated Date Inactivated Comments 10/20/2017 1:22 PM 10/20/2017 1:26 PM * Full Code Date Activated Date Inactivated Comments 12/05/2015 11:19 AM 12/06/2015 8:06 PM Care Teams Roll Coverer Relationship Specialty Start Date End Date Davon Durand MD PCP - General Family Medicine 08/30/15 Jailene Keating NP [address] [place] [address] Registered Nurse 03/04/18 Srinivasa Beaulieu MD [address] [place] [address] Hematology and Oncology 05/19/18 Sharmin Mancilla Licensed Staff [employer] Social Work 10/29/18 Estefania Underwood PA [address] [place] [address] Surgical Oncology 08/26/20 Ceci Lomeli NP [address] [place] [address] Nurse Practitioner Nurse Practitioner, Family 09/01/20 Singh Davis MD [address] [place] [address] General Surgery 01/12/21 Annabel Ojeda RN [address] [place] [address] Registered Nurse 01/16/21 Chrissy Radford, RN Registered Nurse 07/11/21 Akosua Moss MD [address] [place] [address] Surgical Oncology 10/12/21 Guerline Stern SWITCHBOARD INSTALLER [address] [facility] [place] [address] Nurse Practitioner Nurse Practitioner, Family 04/20/22 Waylon Penn MD [address] [facility] [place] [address] Female Pelvic Medicine and Reconstructive Surgery 06/24/22 [place] [address] [facility] [place], [place] [id number] Otolaryngology 12/05/22
--- OUTSIDE RECORDS SUMMARY | 2024-11-24 13:59 | XMS_ITS | Encounter Summary ---
Author Organization [facility] Address [address] [place] [address] Care Team Providers Care Director Selection And Administration Name Role Phone Davon Durand MD Primary Care Provider [phone] Jailene Keating NP Unavailable [phone] Srinivasa Beaulieu MD Unavailable [phone] Sharmin Mancilla Unavailable Unavailable Estefania Underwood Unavailable [phone] Ceci Lomeli NP Unavailable Unavailable Singh Davis MD Unavailable [phone] Annabel Ojeda RN Unavailable [phone] Chrissy Radford RN Unavailable Unavailable Akosua Moss MD Unavailable [phone] Guerline Stern NP Unavailable [phone] Waylon Penn MD Unavailable [phone] Vic Moss MD Unavailable [phone] Reason for Referral * PT/OT/ST (Routine) - Not Needed Specialty Diagnoses / Procedures Referred By Contac t Referred To Contact Physical Therapy Diagnoses Primary osteoarthritis of left knee Natanael Pelayo MD [address] [place] [address] Phone: tel: fax: [facility], [place] [address] [facility] [place] [address] Phone: tel: fax: Referral ID Status Reason Start Date Expiration Date V isits Requested Visits Authorized [id number] Not Needed 12/20/2023 12/19/2024 26 26 Encounter Details Date Type Department Care Team (Latest Contact Info) Description 12/12/2023 Preop Surgical Orders [facility] - Orthopaedics & Sports Medicine, [address] [address] [place] [address] Natanael Pelayo MD [address] [place] [address] Primary osteoarthritis of left knee (Primary Dx) Social History Tobacco Use Types [...] of Assessment Author No 10/20/2017 3:43 PM JULIUST Magdy Bennett RN * Because of a physical, mental, or emotional condition, do you have difficulty doing errands alone such as a visiting a doctor's office or shopping? Answer Date of Assessment Author No 10/20/2017 3:43 PM EDT Magdy Bennett RN documented as of this encounter Mental Status * Because of a physical, mental, or emotional condition, do you have serious difficulty concentrating, remembering, or making decisions? Answer Entry Date Author No 10/20/2017 3:43 PM EDT Magdy Bennett RN documented in this encounter Plan of Treatment Upcoming Encounters Date Type Department Care Team (Late st Contact Info) Description 11/27/2024 12:00 PM EDT Appointment [facility], [facility] [address] [place] [address] [place] [address] Srinivasa Beaulieu MD [address] [place] [address] 11/27/2024 12:15 PM EDT Appointment [facility] [address] [place] [address] [place] [address] 05/06/2025 12:30 PM EST Appointment [facility], [address] [place] [address] 05/06/2025 1:30 PM EST Appointment [facility] - Surgical Oncology, [address] [place] [id number] Akosua Moss MD [address] [place], [place] [address]. [address] [place] [address] Scheduled Referrals Name Type Priority Associated Diagnoses Orde r Schedule AMB REFERRAL TO PHYSICAL THERAPY Outpatient Referral Routine Primary osteoarthritis of left knee Ordered: 12/20/2023 documented as of this encounter Results * ALBUMIN SERUM/PLASMA (01/06/2024 9:53 AM EDT) Albumin 4.3 3.5 - 5.0 g/dL [facility] Serum 01/06/2024 9:53 AM EDT 01/06/2024 3:38 PM EDT Natanael Pelayo MD CHEMISTRY ORDERABLES Final Re sult Performing Organization Address [facility] de Phone Number [facility] [address] * (ABNORMAL) HGB, A1C (GLYCOHEMOGLOBIN) (01/06/2024 9:53 AM EDT) Pathologist [facility] Hgb A1C 6.0(H) 4.0 - 5.6 % [facility] Comment: Reference Ranges for Hgb A1c: Increased risk for diabetes: 5.7-6.4% Probable diabetes: >=6.5% Desired control for previously diagnosed diabetics: <7.0% Many conditions can affect the Hgb A1c value including hemolysis, recent transfusion, hemoglobin variants, thalassemias, severe chronic hepatic and renal disease and iron deficiency among others. Please note that results from this assay are invalid for patients with abnormal amounts of Hemoglobin (HbF). Results must be interpreted in the proper clinical context. This method is certified by the National Glycohemoglobin Standardization program (NGSP) and traceable to [facility]. Estimated Average Glucose 126(H) 68 - 114 mg/dL [facility] Whole Blood 01/06/2024 9:53 AM EDT 01/06/2024 4:25 PM EDT us Natanael Pelayo MD CHEMISTRY ORDERABLES Final Re sult Performing Organization Address [facility] Co de Phone Number [facility] [address] * (ABNORMAL) BASIC METABOLIC PANEL (BMP=EP1) (01/06/2024 9:53 AM EDT) [facility] Sodium 139 135 - 146 mmol/L [facility] Potassium 4.1 3.5 - 5.1 mmol/L [facility] Chloride 106 98 - 110 mmol/L [facility] CO2 25 22 - 29 mmol/L [facility] Anion Gap 8 5 - 13 mmol/L [facility] Comment:Anion gap calculatio n does not include potassium (K+) value. BUN 10 7 - 25 mg/dL [facility] Creatinine 0.74 0.50 - 1.20 mg/dL [facility] Glucose 102(H) 71 - 99 mg/dL [facility] Comment:Reference range (71- 99 mg/dL) refers only to fasting samples, and does not apply to non-fasting samples. eGFR CKD-EPI 2020 82 See Note [facility] Comment: eGFR calculated with 2020 CKD-EPI equation using creatinine, patient's age and gender. Other factors, especially muscle mass, may affect accuracy and need to be considered. Patient values should be interpreted as a trend. The reference interval is >60 mL/min/1.73m2. Calcium 9.2 8.5 - 10.5 mg/dL [facility] Comment:Effective 10/18/2022, the calcium reference range has been updated. BUN/Creatinine Ratio 14 [facility] Serum 01/06/2024 9:53 AM EDT 01/06/2024 3:38 PM EDT us Natanael Pelayo MD CHEMISTRY ORDERABLES Final Re sult [facility] [address] * CBC (COMPLETE BLOOD COUNT) (01/06/2024 9:53 AM EDT) WBC 6.20 3.80 - 10.80 10*3/uL [facility] RBC 4.20 3.80 - 5.10 10*6/uL [facility] Hemoglobin 13.3 11.7 - 15.5 g/dL [facility] Hematocrit Blood 40.2 35.0 - 46.0 % [facility] MCV 95.7 80.0 - 100.0 fL [facility] MCH 31.7 27.0 - 33.0 pg [facility] MCHC 33.1 30.0 - 36.0 g/dL [facility] RDW 13.6 11.0 - 15.0 % [facility] Platelets 254 140 - 400 10*3/uL [facility] MPV 11.3 9.0 - 13.0 fL [facility] Whole Blood 01/06/2024 9:53 AM EDT 01/06/2024 4:25 PM EDT us Natanael Pelayo MD HEMATOLOGY ORDERABLES Final R esult [facility] [address] documented in this encounter Visit Diagnoses Diagnosis Primary osteoarthritis of left knee- Primary Primary localized osteoarthrosis, lower leg documented in this encounter Care Teams Director Selection And Administration Relationship Specialty Start Date End Date Davon Durand MD PCP - General Family Medicine 08/30/15 Jailene Keating NP [address] [place] [address] Registered Nurse 03/04/18 Srinivasa Beaulieu MD [address] [place] [address] Hematology and Oncology 05/19/18 Sharmin Mancilla E Business Consultant Social Work 10/29/18 Estefania Underwood PA [address] [place] [address] Surgical Oncology 08/26/20 Ceci Lomeli NP [address] [place] [address] Nurse Practitioner Nurse Practitioner, Family 09/01/20 Singh Davis MD [address] [place] [address] General Surgery 01/12/21 Annabel Ojeda RN [address] [place] [address] Registered Nurse 01/16/21 Chrissy Radford, RN Registered Nurse 07/11/21 Akosua Moss MD [address] [facility] [place] [address] Surgical Oncology 10/12/21 [place] [address] [address] [place] [address] Nurse Practitioner Nurse Practitioner, Family 04/20/22 Waylon Penn MD [address] [facility] [place] [address] Female Pelvic Medicine and Reconstructive Surgery 06/24/22 [place] [address] [place] [address] Otolaryngology 12/05/22 documented as of this encounter
--- OUTSIDE RECORDS SUMMARY | 2024-11-24 13:59 | XMS_ITS ---
Author Organization [facility] Address [address] [place] [address] Care Team Providers Care Manager Intel Name Role Phone Davon Durand MD Primary Care Provider [phone] Jailene Keating NP Unavailable Srinivasa Beaulieu MD Unavailable [phone] Sharmin Mancilla Unavailable Unavailable Estefania Underwood Unavailable [phone] Ceci Lomeli NP Unavailable Unavailable Singh Davis MD Unavailable [phone] Annabel Ojeda RN Unavailable [phone] Chrissy Radford RN Unavailable Unavailable Akosua Moss MD Unavailable [phone] Guerline Stern NP Unavailable [phone] Waylon Penn MD Unavailable Vic Moss MD Unavailable [phone] Active Problems Problem Noted Date Diagnosed Date Primary osteoarthritis of left knee 12/12/2023 Other constipation 01/16/2021 Senile osteoporosis 09/01/2020 History of breast cancer 10/23/2018 Uterovaginal prolapse, incomplete 06/24/2018 Uterine prolapse 06/18/2018 Overview (06/18/2018): Added automatically from request for surgery [id number] Screening for osteoporosis 05/19/2018 Pneumonitis 10/20/2017 Malignant neoplasm of right female breast ([facility]) 07/18/2017 Cancer Staging:Pathologic stage from 07/30/2017:Stage IA(pT1c, pN1mi(sn), cM0, G2, ER: Positive, VT: Positive, HER2: Negative, Oncotype DX score: 21) - Signed by Akosua Moss MD on 07/30/2017 Primary osteoarthritis involving multiple joints 12/05/2015 Hyperlipidemia 12/05/2015 Primary osteoarthritis of right knee 12/01/2015 Superficial thrombosis of leg, right Current Treatment and Therapy Plans No current plan information found. Other Current Plans ONCOLOGY THERAPY PLAN* Plan Start Date:10/24/2018 Plan Provider:Srinivasa Beaulieu MD Linked Problems History of breast cancer Treatment Medications No medications scheduled. OP DENOSUMAB (PROLIA) Every 182 Days* Plan Start Date:11/18/2020 Plan Provider:Srinivasa Beaulieu MD Linked Problems Senile osteoporosis Treatment Medications Current Day (Day 1 , Cycle 9 - Planned for 11/27/2024) Next Day (Day 1, Cycle 10 - Planned for 05/28/2025) No medications scheduled. No medications schedul ed. No medications scheduled. Past Treatment and Therapy Plans ONCOLOGY TREATMENT Plan Name Start Date Discontinue Date Treatment Medications Discontinue Reason Plan Provider Cycles TC REGIMEN: TAXOTERE /CYCLOPH OSPHAMID E Q21d X 4cycles 8 11/01/2017 cycloPHOSphamide (CYTOXAN) chemo infusionDOCEtaxel (TAXOTERE) EVERY 3 WEEK chemo infusion Not Tolerated Srinivasa Beualieu MD 3 of 4 cycles started Resolved Problems Problem Noted Date Diagnosed Date Resolved Date Generalized abdominal pain 01/16/2021 0 10/02/2021
--- OUTSIDE RECORDS SUMMARY | 2024-11-24 13:59 | XMS_ITS | Encounter Summary ---
Author Organization [facility] Address [address] [place] [address] Care Team Providers Care Occupational Health Nurse Supervisor Name Role Phone Davon Durand MD Primary Care Provider [phone] Jailene Keating NP Unavailable [phone] Srinivasa Beaulieu MD Unavailable [phone] Sharmin Mancilla Unavailable Unavailable Estefania Underwood Unavailable [phone] Ceci Lomeli NP Unavailable Unavailable Singh Davis MD Unavailable [phone] Annabel Ojeda RN Unavailable [phone] Chrissy Radford RN Unavailable Unavailable Akosua Moss MD Unavailable [phone] uGerline Stern NP Unavailable [phone] Waylon Penn MD Unavailable [phone] Vic Moss MD Unavailable [phone] Encounter Details Date Type Department Care Team (Late st Contact Info) Description 03/02/2020 Orders Only [facility] Physicians - Hematology & Oncology, [address] [place] [address] Srinivasa Beaulieu MD [address] [place] [address] Malignant neoplasm of upper-outer quadrant of right breast in female, estrogen receptor positive (CMS HCC) (Primary Dx) Social History Tobacco Use [...] on file Sexual Orientation Not on file COVID-19 Exposure Response Date Recorded In the last month, have you been in contact with someone who was confirmed or suspected to have Coronavirus / COVID-19? Unable to assess 03/02/2020 10:27 AM EDT documented as of this encounter Functional Status * Are you blind or do you have difficulty seeing, even when wearing glasses? Answer Date of Assessment Author No 10/20/2017 3:43 PM EDT Magdy Bennett RN * Do you have serious difficulty walking or climbing stairs? Answer Date of Assessment Author No 10/20/2017 3:43 PM JULIUST Magdy Bennett RN * Do you have [...] Description 11/27/2024 12:00 PM EDT Appointment [facility] [place] [address] [facility] [place] [address] Srinivasa Beaulieu MD [address] [place] [address] 11/27/2024 12:15 PM EDT Appointment [facility], [place] [address] [place], [place] [address] [address] 05/06/2025 12:30 PM EST Appointment [facility] Medical Office Building, [facility] [address] [facility] [address] [place] [address] 05/06/2025 1:30 PM EST Appointment [facility] Physicians - Surgical Oncology, [address] [place] [id number] Akosua Moss MD [address] [facility] [place], [place] [address] documented as of this encounter Results * (ABNORMAL) CA27.29 (03/18/2020 9:35 AM EDT) CA 27-29 47(H) <38 U/mL [facility] Comment: This test was performed using the Siemens Chemiluminescent method. Values obtained from different assay methods cannot be used interchangeably. CA 27.29 levels, regardless of value, should not be interpreted as absolute evidence of the presence or absence of disease. Test performed at [facility] [address] [address] KARLA CONNER MD Serum 03/18/2020 9:35 AM EDT 03/19/2020 1:56 PM EDT us Srinivasa Beaulieu MD CHEMISTRY ORDERABLES Final Res ult [facility] [address] [place] [address], [facility] documented in this encounter Visit Diagnoses Diagnosis Malignant neoplasm of upper-outer quadrant of right breast in female, estrogen receptor positive ([facility] HCC)- Primary documented in this encounter Care Teams Occupational Health Nurse Supervisor Relationship Specialty Start Date End Date Davon Durand MD PCP - General Family Medicine 08/30/15 Jailene Keating NP [address] [place] [address] Registered Nurse 03/04/18 Srinivasa Beaulieu MD [address] [place] [address] Hematology and Oncology 05/19/18 Sharmin Mancilla Palliative Care Physician Social Work 10/29/18 Estefania Underwood PA [address] [place] [address] Surgical Oncology 08/26/20 Ceci Lomeli NP [address] [place] [address] Nurse Practitioner Nurse Practitioner, Family 09/01/20 Singh Davis MD [address] [place] [address] General Surgery 01/12/21 Annabel Ojeda RN [address] [place] [address] Registered Nurse 01/16/21 Chrissy Radford RN Registered Nurse 07/11/21 Akosua Moss MD [address] [place] [address] Surgical Oncology 10/12/21 [place] [address] [place] [address] Nurse Practitioner Nurse Practitioner, Family 04/20/22 Waylon Penn MD [address] [facility] [place] [address] Female Pelvic Medicine and Reconstructive Surgery 06/24/22 [place] [address] [place], [place] [id number] Otolaryngology 12/05/22 documented as of this encounter
--- OUTSIDE RECORDS SUMMARY | 2024-11-24 13:59 | XMS_ITS | Clinical Summary ---
Author Organization [facility] Address [address] [facility] [place] [address] Phone Care Team Providers Care Assessment Services Manager Name Role Phone Davon Durand MD Primary Care Provider [phone] Allergies Active Allergy Reactions Criticality Noted Date Comments Ciprofloxacin Hcl Palpitations Low 03/18/2011 Latex Itching Low 05/17/2016 Medications atorvastatin (LIPITOR) 10 mg tablet Take by mouth daily. Active FEXOFENADINE HCL (YEFRI ORAL) Take by mouth. Activ e multivitamin (THERAGRAN) per tablet Take 1 Tab by mouth daily. Active aspirin 81 mg tablet Take 81 mg by mouth daily. Active meloxicam (MOBIC) 7.5 mg Oral Tablet Take 7.5 mg by mouth as needed. Active traMADol (ULTRAM) 50 mg Oral Tablet Take 50 mg by mouth every 6 hours as needed for Pain. Active acetaminophen (TYLENOL) 500 mg Oral Tablet Take 500 mg by mouth as needed for Pain. Active [id number] sri-YgIa-UMu-as b-C (PLENVU) 140-9-5.2 gram Oral Powder in Packet, Sequential Take 3 Packets by mouth Preprocedure for up to 1 dose. Take 1 kit per physician instructions 3 Packet 3 Active Additional Information Patient not taking.Reported on 07/25/2022 polyethylene glycol (GOLYTELY) 236-22.74-6.74 -5.86 gram Oral Recon SolnIndications :Family history of colon cancer Take 1 kit per physician instructions 1 Each 3 Active Additional Information Patient not taking.Reported on 07/25/2022 letrozole (FEMARA) 2.5 mg Oral TabletIndicatio ns:Screening for colon cancer,Special screening for malignant neoplasms, colon 3 Active Active Problems Problem Noted Date Diagnosed Date Superficial thrombosis of leg, right 07/25/2022 Other constipation 01/16/2021 Senile osteoporosis 09/01/2020 Uterine prolapse 06/18/2018 Overview (07/25/2022): Added automatically from request for surgery [id number] Pneumonitis 10/20/2017 Breast cancer 06/18/2017 Overview (07/01/2017): right IDC ER 96% AR 12 % HER2 negative Hyperlipidemia 12/05/2015 Primary osteoarthritis involving multiple joints 12/05/2015 Pre-operative cardiovascular examination 016 Neoplasm of uncertain behavior of skin 6 Surgical History Surgery Date Site/Laterality Comments TOTAL KNEE ARTHROPLASTY Right BREAST BIOPSY 06/18/2017 Right COLONOSCOPY Medical History Medical History Date Comments Breast cancer (HCC) 06/18/2017 right IDC ER 96% AR 12 % HER2 negative GERD (gastroesophageal reflu x disease) Family History Medical History Relation Name Comments Cancer Brother throat Cancer Father bone lung colon 1985 Colon Cancer Father Breast Cancer Mother 1992 Breast Cancer Other pat cousin Relation Name Status Comments Brother Father Mother Alive Other pat cousin Alive Social History Tobacco Use Types Packs/Day Years Used Date Smoking Tobacco: Never Smokeless Tobacco: Never Tobacco Cessation:Counseling Given: Not Answered Alcohol Use Standard Drinks/Week Comments No 0 (1 standard drink = 0.6 oz pur e alcohol) Sexually Active Control Partners Comments Yes Male Comments No Sex and Gender Information Value Date Recorded Sex Assigned at Not on file Legal Sex Female 1:39 PM EDT Gender Identity Not on file Sexual Orientation Not on file Obstetrics History Para Term AB IAB SAB Ectopic Multiple Livin g Live Births 2 2 2 2 2 Date Outcome GA Total Labor Labor/2nd/3rd Weight Sex Type Anes PTL Debbie A1 A5 Name Clin Term Vag-S pont Living Term Vag-S pont Living Last Filed Vital Signs Vital Sign Reading Time Taken Comments Blood Pressure 148/75 07/25/2022 1:21 PM EST Pulse 78 07/25/2022 1:21 PM EST Temperature 35.9 C (96.6 F) 07/25/2022 11:51 AM EST Respiratory Rate 17 07/25/2022 11:51 AM EST Oxygen Saturation 95% 07/25/2022 1:21 PM EST Inhaled Oxygen Concentration - - Weight 67.1 kg (148 lb) 07/25/2022 11:51 AM EST Height 154.9 cm (5' 1 ) 07/25/2022 11:51 AM EST Body Mass Index 27.96 07/25/2022 11:51 AM EST Plan of Treatment Health Maintenance Due Date Last Done Comments Wellness Exam Medicare 1948 DTaP/TDaP/Td (1 - Tdap) 1963 RSV or 60+ (1 - 1-dose 75+ series) 2019 COVID-19 Vaccine ( season) 2024 04/19/2021, 07/25/2020, 06/29/2020 Influenza Vaccine (Season Ended) 2025 03/20/2022, 03/30/2021, 02/19/2020, Additional history exists Pneumococcal Vaccine 50+ Completed 04/19/2017, 09/2008 Zoster Completed 08/24/2020, 06/2020, 05/20/2009 Bone Density Screening Completed , 05/19/2018, 06/05/2017 Colonoscopy Discontinued 07/25/2022 Hepatitis B Vaccine Aged Out No longe r eligible based on patient's age to complete this topic Meningococcal B Vaccine Aged Out No l onger eligible based on patient's age to complete this topic Procedures Procedure Name Priority Date/Time Associated Diagnosis Comments GMED COLONOSCOPY Routine 07/25/2022 12:4 0 PM EST Screening for colon cancer Special screening for malignant neoplasms, colon DX BONE DENSITY AXIAL SKELETON Routine 06/05/2017 9:46 AM EST Postmenopausal from Last 3 Months or Most Recently Relevant to Health Maintenance Results * GMED COLONOSCOPY (07/25/2022 12:40 PM EST) 07/25/2022 12:4 0 PM EST Impressions [facility] - 07/25/2022 1:16 PM EST Polyps (3 mm to 6 mm) in the ascending colon, descending colon and transverse colon. (Biopsy). Moderate diverticulosis of the the left side of the colon. Grade/Stage II internal hemorrhoids. Plan: 1) repeat colonoscopy in 3 years if medically indicated, please f/u in office prior to scheduling, 2) high fiber diet, 3) if no results in 4 weeks, please call office. This section is an excerpt of the full report. us Josue Sellers MD GI PROCEDURE ORDERABLES Fin al Result Performing Organization Address City/State/[facility] Co de Phone Number [facility] [address] [place] [address] * DX BONE DENSITY AXIAL SKELETON (06/05/2017 9:46 AM EST) Anatomical Region Laterality Modality Dexa Scan 06/05/2017 Addenda Addendum by Taty Chacko MD on 04/21/2018 4:28 PM EST Bone Density Report Name: Lizeth Woodall Age: 72 Sex: Female Ethnicity: White Date of : 1945 Indication: This bone density report has been reanalyzed as the result of a pulmonary function technician change in equipment calibration. Referring Physician: Hugo Rucker Study was performed on [facility] 5. Exam Date: June 05, 2017 Accession number: [id number] Bone Density: Region BMD T-score Z-score AP Spine (L1, L2, L3) 0.877 -1.3 1.0 Femoral Neck (Left) 0.635 -1.9 0.0 Total Hip (Left) 0.778 -1.3 0.3 Femoral Neck (Right) 0.584 -2.4 -0.4 Total Hip (Right) 0.747 -1.6 0.1 World Health Organization criteria for BMD interpretation classify patients as: Normal (T-score at or above -1.0), Low Bone Density (T-score between -1.0 and -2.5), or Osteoporotic (T-score at or below -2.5). T Scores are reported in Postmenopausal women and in men age 50 and older. Z-scores are reported in females prior to menopause and in males younger than age 50. 10-year Fracture Risk(1): Major Osteoporotic Fracture 22% Hip Fracture 5.7% Reported Risk Factors: [place] (), Neck BMD=0.584, BMI=27.1, previous fracture (1) FRAX Version 3.08. Fracture probability calculated for an untreated patient. Fracture probability may be lower if the patient has received treatment. Previous Exams: Region Date Age BMD T-score BMD Change Total Hip(Left) 06/05/2017 72 0.778 -1.3 2.5% 06/09/2009 64 0.759 -1.5 2.6% 02/10/2007 61 0.740 -1.7 0.2% 01/29/2005 59 0.739 -1.7 *Denotes significance at 95% confidence level, LSC for Total Hip = 0.027 g/cm2 BMD is shown in g/cm2 and BMD Change indicates change vs previous BMD Clinical Information Provided by Patient: Has had a low trauma fracture. Has used or is currently using the following medications: Calcium, Vitamin D Patient maximum height was 62 Menopause Age: 38 Patient is postmenopause Interpretation: Bone mineral density is in the low bone density range. A minimum of two years may be required between bone density studies due to inherent testing precision limitations. Intervals between BMD testing should be determined according to each patient's clinical status: typically one year after initiation or change of therapy is appropriate, with longer intervals once therapeutic effect is established. The left hip bone mineral density is not significantly changed since last exam. The spine portion of the study is a new baseline and is not able to be compared due to changes in the region of interest. The spine portion of the study is limited by visual hypertrophic change with associated vertebra deleted. Reported by: Laura Beltran PA-C, CCD on 02/17/2018 8:17:00 PM. Narrative 06/11/2017 4:11 PM EST Indication: The patient is a female age 65 or older who requires a bone density assessment. Study was performed on [employer] 5. Bone Density: Region BMD T-score Z-score AP Spine (L1, L2, L3) 0.899 -1.1 1.2 Femoral Neck (Left) 0.655 -1.7 0.2 Total Hip (Left) 0.801 -1.2 0.5 Femoral Neck (Right) 0.610 -2.2 -0.2 Total Hip (Right) 0.784 -1.3 0.4 World Health Organization criteria for BMD interpretation classify patients as: Normal (T-score at or above -1.0), Low Bone Density (T-score between -1.0 and -2.5), or Osteoporotic (T-score at or below -2.5). T Scores are reported in Postmenopausal women and in men age 50 and older. Z-scores are reported in females prior to menopause and in males younger than age 50. 10-year Fracture Risk(1): Major Osteoporotic Fracture 20% Hip Fracture 4.8% Reported Risk Factors: [place] (), Neck BMD=0.610, BMI=27.1, previous fracture (1) FRAX(R) Version 3.08. Fracture probability calculated for an untreated patient. Fracture probability may be lower if the patient has received treatment. Previous Exams: Region Date Age BMD T-score BMD Change Total Hip(Left) 06/05/2017 72 0.801 -1.2 5.5%* 06/09/2009 64 0.759 -1.5 2.6% 02/10/2007 61 0.740 -1.7 0.2% 01/29/2005 59 0.739 -1.7 *Denotes significance at 95% confidence level, LSC for Total Hip = 0.027 g/cm2 BMD is shown in g/cm2 and BMD Change indicates change vs previous BMD Clinical Information Provided by Patient: Has had a low trauma fracture. Has used or is currently using the following medications: Calcium, Vitamin D Patient maximum height was 62 Menopause Age: 38 Patient is postmenopause Interpretation: Bone mineral density is in the low bone density range. A minimum of two years may be required between bone density studies due to inherent testing precision limitations. Intervals between BMD testing should be determined according to each patient's clinical status: typically one year after initiation or change of therapy is appropriate, with longer intervals once therapeutic effect is established. The spine portion of the study is a new baseline and is not able to be compared due to changes in the region of interest. The spine portion of the study is limited by visual hypertrophic change with associated vertebra, L4, deleted. The left hip bone mineral density is significantly increased since the last exam. The right hip portion of the study is a new baseline and is not able to be compared. Reported by: Nicole Lopez PA-C, CCD on 06/05/2017 11:25:00 AM. [facility] Gianni Rucker [facility] DEXA ORDERABLES Edited Resu lt - Final from Last 3 Months or Most Recently Relevant to Health Maintenance [place] [place] [address] MEDICARE PPO MR [employer] MEDICARE PPO MR Care Teams Assessment Services Manager Relationship Specialty Start Date End Date Davon Durand MD PCP - General 04/12/10
--- OUTSIDE RECORDS SUMMARY | 2024-11-24 13:59 | XMS_ITS | Encounter Summary ---
Author Organization [facility] Address [address] [place] [address] Care Team Providers Care Cafe Operator Name Role Phone Davon Durand MD Primary Care Provider Jailene Keating NP Unavailable Srinivasa Beaulieu MD Unavailable [phone] Sharmin Mancilla Unavailable Unavailable Estefania Underwood Unavailable [phone] Ceci Lomeli NP Unavailable Unavailable Singh Davis MD Unavailable [phone] Annabel Ojeda RN Unavailable Chrissy Radford RN Unavailable Unavailable Akosua Moss MD Unavailable Guerline Stern NP Unavailable [phone] Waylon Penn MD Unavailable [phone] Vic Moss MD Unavailable [phone] Encounter Details Date Type Department Care Team (Late st Contact Info) Description 03/24/2020 Orders Only [facility] Cancer Center, [facility] [address] [facility] [address] [place], [place] [id number] Srinivasa Beaulieu MD [address] [place] [address] Malignant neoplasm of upper-outer quadrant of right [...] or suspected to have Coronavirus / COVID-19? No / Unsure 03/18/2020 8:47 AM EDT documented as of this encounter [...] 10/20/2017 3:43 PM JULIUST Magdy Bennett RN documented as of this [...] Description 11/27/2024 12:00 PM EDT Appointment [facility] [place] [address] [place] [address] Srinivasa Beaulieu MD [address] [place] [address] 11/27/2024 12:15 PM EDT Appointment [facility], [facility] [address] [place], [place] [address] [place] [address] 05/06/2025 12:30 PM EST Appointment [facility] Medical Office Building, [facility] [address] [place] [address] Avenue [address] [place] [address] 05/06/2025 1:30 PM EST Appointment [facility] Physicians - Surgical Oncology, [address] [place] [phone] Akosua Moss MD [address] [place] [address]. [address] [place] [address] documented as of this encounter Visit Diagnoses Diagnosis Malignant neoplasm of upper-outer quadrant of right breast in female, estrogen receptor positive ([facility] HCC)- Primary documented in this encounter Care Teams Cafe Operator Relationship Specialty Start Date End Date Davon Durand MD PCP - General Family Medicine 08/30/15 Jailene Keating NP [address] [place], [place] [address] [address] Registered Nurse 03/04/18 Srinivasa Beaulieu MD [address] [place] [address] Hematology and Oncology 05/19/18 Sharmin Mancilla Fullerette Social Work 10/29/18 Estefania Underwood PA [address] [place] [address] Surgical Oncology 08/26/20 Ceci Lomeli NP [address] [place] [address] Nurse Practitioner Nurse Practitioner, Family 09/01/20 Singh Davis MD [address] [place] [address] General Surgery 01/12/21 Annabel Ojeda, RN [address] [place] [address] Registered Nurse 01/16/21 Chrissy Radford RN Registered Nurse 07/11/21 Akosua Moss MD [address] [place] [address] Surgical Oncology 10/12/21 [place] [address] [address] [place] [address] Nurse Practitioner Nurse Practitioner, Family 04/20/22 Waylon Penn MD [address] [place] [address] Female Pelvic Medicine and Reconstructive Surgery 06/24/22 [place] [address] [place], [place] [id number] Otolaryngology 12/05/22 documented as of this encounter
--- NOTE | 2024-11-24 14:00 | CA_ITS ---
FINAL REPORT TECHNIQUE: Ultrasound images of the deep venous system were obtained from the left groin to the calf veins. CLINICAL HISTORY: Left foot pain and edema, Hx of DVT in Right leg many years ago. Left knee replacement September 2023 FINDINGS: The deep venous system is normally compressible. Normal flow is identified. IMPRESSION: No evidence of left lower extremity DVT. Reviewed, Interpreted and Dictated by Sebastian Allen MD Transcribed by Mari Ponce Authenticated and [facility]
--- NOTE | 2024-11-24 14:27 | XR_ITS ---
FINAL REPORT CLINICAL HISTORY: left foot pain FINDINGS: LEFT FOOT Three views of the left foot demonstrate no acute fracture or dislocation. There are marked advanced hypertrophic changes of the first MTP joint. There is subchondral cystic change and osteophytes. A small plantar spur is noted. The visualized joint spaces are normally aligned. The soft tissues are unremarkable. IMPRESSION: No acute bony abnormality. Reviewed, Interpreted and Dictated by Sebastain Allen MD Transcribed by Mari Ponce Authenticated and [facility]
== END 2024-11-24 23:59 | disposition home or self-care (01) ==
LOC: RT 13:56
PROVIDERS: PCP Family Medicine; Visit Provider Nurse Practitioner
DX: M79.672 Pain in left foot (principal); M25.472 Effusion, left ankle; Z86.718 Personal history of other venous thrombosis and embolism; Z96.652 Presence of left artificial knee joint
CPT/HCPCS: 73630; 93971

== ENCOUNTER 2024-12-17 09:52 | Outpatient (CLI) | payer MEDICARE, SELFPAY ==
--- OUTSIDE RECORDS SUMMARY | 2024-11-27 09:25 | XMS_ITS | Encounter Summary ---
Author Organization [facility] Address [address] [place] [address] Care Team Providers Care Medical Device Name Role Phone Davon Durand MD Primary Care Provider [phone] Jailene Keating NP Unavailable [phone] Srinivasa Beaulieu MD Unavailable [phone] Sharmin Mancilla Unavailable Unavailable Estefania Underwood Unavailable [phone] Ceci Lomeli NP Unavailable Unavailable Singh Davis MD Unavailable [phone] Annabel Ojeda RN Unavailable [phone] Chrissy Radford RN Unavailable Unavailable Akosua Moss MD Unavailable [phone] Guerline Stern NP Unavailable [phone] Waylon Penn MD Unavailable [phone] Vic Moss MD Unavailable [phone] Reason for Visit * Treatment and Therapy Plans (Routine) - Authorized Specialty Diagnoses / Procedures Referred By Contac t Referred To Contact Diagnoses Senile osteoporosis Srinivasa Beaulieu MD [address] [place] [address] Phone: tel: fax: [facility] [address] [address] Phone: tel: Referral ID Status Reason Start Date Expiration Date V isits Requested Visits Authorized [id number] Authorized 09/01/2020 10/27/2025 1 1008 Encounter Details Date Type Department Care Team (Latest Contact Info) Description 11/27/2024 9:25 AM EDT Hospital Encounter [facility] [address] [place] [address] Srinivasa Beaulieu MD [address] [place] [address] Senile osteoporosis (Primary Dx); History of breast [...] Beaulieu MD - 11/27/2024 12:00 PM EDT [facility] ONCOLOGY FOLLOW-UP PROGRESS NOTE Patient ID: Lizeth [...] - Right breast mass, 1 o'clock position ([id number]): Invasive ductal carcinoma, grade 2, ER-positive (8/8), GA-positive (6/8), HER2-negative by IHC with a score of 0. 2. 07/03/2017 - Oncotype DX specimen ID [id number]: Recurrence result score 21. A 10 year risk of distant recurrence with tamoxifen alone 13%. 3. 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 Tumor size 17 mm in greatest dimension. Lab Results Component Value Date QQ4854 28.4 11/29/2023 VITD25 81 (HIGH) 11/30/2022 WBC 5.90 03/22/2024 HGB 12.2 03/22/2024 HCT 36.8 03/22/2024 MCV 95.8 03/22/2024 PLT 298 03/22/2024 NEUTOPHILPCT 49.0 03/22/2024 LYMPHOPCT 31.4 03/22/2024 MONOPCT 13.1 03/22/2024 EOSPCT 5.6 03/22/2024 BASOPCT 0.7 03/22/2024 NEUTROABS 2.90 03/22/2024 LYMPHSABS 1.85 03/22/2024 MONOSABS 0.77 03/22/2024 EOSABS 0.33 03/22/2024 BASOSABS 0.04 03/22/2024 Imaging: MAMM-ULTRASOUND BREAST LIMITED(FOCUS AREA) 05/08/2024 [id number] Final MAMM-SCREENING W/MIGUEL 04/27/2024 [id number] Final VASCI-CECILIO DUPLEX LE LTD RT 03/23/2024 [id number] Final DIAG-KNEE 3-VIEWS LT 03/10/2024 Final DXA-DEXA SCAN AXIAL SKELETON 08/13/2023 [id number] Final I have reviewed and personally interpreted the most recent labs, pathology, and imaging in [facility] Everywhere. Assessment Assessment & Plan No [...] Wan RN - 11/27/2024 12:00 PM EDT [facility] New Patient [facility] New Patient [facility] Clinical Preparation Activities [facility] Visit Actions - Flow Rows [facility] Staff Services - [facility] Additional Services - Flow [employer]ows [facility] Referral Orders FCC Tests Ordered [facility] BCN Education Documented FCC BCN Drainage LDA [facility] Discharge Instructions 0 0 13 0 [...] Description 05/06/2025 12:30 PM EST Appointment [facility] Medical Office Building, [address] [place] [address] 05/06/2025 1:30 PM EST Appointment [facility] Physicians - Surgical Oncology, [address] [place] [address] Akosau Moss MD [address] [facility] [address] [place] [address] 05/28/2025 12:15 PM EST Appointment [facility] [address] [address] Srinivasa Beaulieu MD [address] [place] [address] 05/28/2025 12:30 PM EST Appointment The [address] [place] [address] documented as of this encounter Procedures Procedure [...] HYDROXY TOTAL (11/27/2024 11:22 AM EDT) Pathologist [facility] Vit D, 25-Hydroxy 72 30 - 80 [...] Final Res ult [facility] EXTERNAL [facility] [address] * DIFFERENTIAL (11/27/2024 7:32 AM EDT) [facility] Neutrophils Absolute 4.45 1.50 - 7.80 10*3/uL [...] EXTERNAL LAB nRBC 0 /100 WBC [facility] FINISHED YARN EXAMINER AL LAB Whole Blood 11/27/2024 7:32 AM EDT 11/27/2024 11:36 AM EDT Srinivasa Beaulieu MD HEMATOLOGY ORDERABLES Final Re sult Performing Organization Address [facility] de Phone Number [facility] EX[facility] [address] * CA27.29 (11/27/2024 7:32 AM EDT) [facility] CA 27-29 35.9 0.0 - 38.6 U/mL [facility] EXTERNAL LAB Comment: Siemens Swan IncauEndoInSight Immunochemiluminometric Methodology (ICMA) Values obtained with different assay methods or kits cannot be used interchangeably. Results cannot be interpreted as absolute evidence of the presence or absence of malignant disease. Performed at: [address] [id number] Lot[employer] Notes Administrator: Timmy Carrion PhD, Phone: [phone] Serum 11/27/2024 7:32 AM EDT 11/28/2024 7:06 AM EDT Srinivasa Beaulieu MD CHEMISTRY ORDERABLES Final Res ult Performing Organization Address [facility] Co de Phone Number [facility] EX[facility] [address] * COMPREHENSIVE METABOLIC PANEL (11/27/2024 7:32 AM EDT) [facility] Sodium 137 135 - 146 mmol/L TC [...] 71 - 99 mg/dL [facility] EX[facility] Comment:Reference range (71- 99 mg/dL) refers only to fasting samples, and does not apply to non-fasting samples. eGFR CKD-EPI 2020 80 See Note [facility] EX[facility] Comment: eGFR calculated with 2020 [...] 1.3 1.0 - 2.1 [facility] EX[facility] BUN/Creatinine Ratio 17 [facility] Plasma 11/27/2024 7:32 AM EDT 11/27/2024 11:35 AM EDT us Srinivasa Beaulieu MD CHEMISTRY ORDERABLES Final Res ult [facility] EX[facility] [address] * CBC WITH DIFFERENTIAL (11/27/2024 7:32 [...] ORDERABLES Final Re sult Performing Organization Address City/[facility]/ZIP Co de Phone Number [facility] EX[facility] [address] * PHOSPHORUS (11/27/2024 7:32 AM EDT) Phosphorus 3.9 2.1 - 4.3 mg/dL [facility] EXTERNAL LAB Serum 11/27/2024 7:32 AM EDT 11/27/2024 11:35 AM EDT us Srinivasa Beaulieu MD CHEMISTRY ORDERABLES Final Res ult Performing Organization Address [facility] de Phone Number [facility] [address] documented in this encounter Visit Diagnoses Diagnosis Senile osteoporosis- Primary History of breast cancer Personal history of malignant neoplasm of breast documented in this encounter Care Teams Medical Device Relationship Specialty Start Date End Date Davon Durand MD PCP - General Family Medicine 08/30/15 Jailene Keating NP [address] [facility] [address] Registered Nurse 03/04/18 Srinivasa Beaulieu MD [address] [place] [address] Hematology and Oncology 05/19/18 Sharmin Mancilla Metrology Engineer Social Work 10/29/18 Estefania Underwood PA [address] [place] [address] Surgical Oncology 08/26/20 Ceci Lomeli NP [address] [place] [address] Nurse Practitioner Nurse Practitioner, Family 09/01/20 Singh Davis MD [address] [place] [address] General Surgery 01/12/21 Annabel Ojeda RN [address] [place] [address] Registered Nurse 01/16/21 Chrissy Radford RN Registered Nurse 07/11/21 Akosua Moss MD [address] [place] [address] Surgical Oncology 10/12/21 [place] [address] [place] [address] Nurse Practitioner Nurse Practitioner, Family 04/20/22 aWylon Penn MD [address] [place] [address] Female Pelvic Medicine and Reconstructive Surgery 06/24/22 [place] [address] [place], [place] [id number] Otolaryngology 12/05/22 documented as of this encounter
--- OUTSIDE RECORDS SUMMARY | 2024-11-27 09:26 | XMS_ITS | Encounter Summary ---
Author Organization [facility] Address [address] [place] [address] Care Team Providers Care Toaster Element Repairer Name Role Phone Davon Durand MD Primary Care Provider [phone] Jailene Keating NP Unavailable [phone] Srinivasa Beaulieu MD Unavailable [phone] Sharmin Mancilla Unavailable Unavailable Estefania Underwood Unavailable [phone] Ceci Lomeli NP Unavailable Unavailable Singh Davis MD Unavailable [phone] Annabel Ojeda RN Unavailable [phone] Chrissy Radford RN Unavailable Unavailable Akosua Moss MD Unavailable [phone] Guerline Stern NP Unavailable [phone] Waylon Penn MD Unavailable [phone] Vic Moss MD Unavailable [phone] Reason for Visit * Treatment and Therapy Plans (Routine) - Authorized Specialty Diagnoses / Procedures Referred By Contac t Referred To Contact Diagnoses Senile osteoporosis Srinivasa Beaulieu MD [address] [place] [address] Phone: tel: fax: [facility] [place] [address] [facility] [place] [address] Phone: tel: Referral ID Status Reason Start Date Expiration Date V isits Requested Visits Authorized [id number] Authorized 09/01/2020 10/27/2025 1 1008 Encounter Details Date Type Department Care Team (Latest Contact Info) Description 11/27/2024 9:26 AM EDT - 11/27/2024 11:59 PM EDT Hospital Encounter [facility] [place] [address] [place] [address] Senile osteoporosis (Primary Dx) Discharge Disposition: Home [...] Description 05/06/2025 12:30 PM EST Appointment [facility] Medical Office Building, [address] [place] [address] 05/06/2025 1:30 PM EST Appointment [facility] Physicians - Surgical Oncology, [address] [place] [address] Akosua Moss MD [address] [place] [address]. [address] [place], [place] [address] 05/28/2025 12:15 PM EST Appointment [facility] [address] [place] [address] Srinivasa Beaulieu MD [address] [place] [address] 05/28/2025 12:30 PM EST Appointment [facility] [address] [place] [address] documented as of this encounter Visit Diagnoses [...] (Back) documented in this encounter Care Teams Toaster Element Repairer Relationship Specialty Start Date End Date Davon Durand MD PCP - General Family Medicine 08/30/15 Jailene Keating NP [address] [facility] [place] [address] Registered Nurse 03/04/18 Srinivasa Beaulieu MD [address] [place] [address] Hematology and Oncology 05/19/18 Sharmin Mancilla Electric Welder Social Work 10/29/18 Estefania Underwood PA [address] [place] [address] Surgical Oncology 08/26/20 Ceci Lomeli BATTALION CHIEF [address] [place] [address] Nurse Practitioner Nurse Practitioner, Family 09/01/20 Singh Davis MD [address] [place] [address] General Surgery 01/12/21 Annabel Ojeda, JOYCE [address] [place] [address] Registered Nurse 01/16/21 Chrissy Radford RN Registered Nurse 07/11/21 Akosua Moss MD [address] [place] [address] Surgical Oncology 10/12/21 [place] [address] [place] [address] Nurse Practitioner Nurse Practitioner, Family 04/20/22 Waylon Penn MD [address] [place] [address] Female Pelvic Medicine and Reconstructive Surgery 06/24/22 [place] [address] [place], [place] [address] Otolaryngology 12/05/22 documented as of this encounter
[2024-12-17 18:48] LABS: Hematocrit 40.6 % (37.0-47.0); Hemoglobin 13.0 g/dL (12.2-16.2); Immature Granulocytes % 0.3 %; Mean Corpuscular HGB Conc 32.0 g/dL (31.8-35.4); Mean Corpuscular Hemoglobin 30.7 pg (27.0-31.2); Mean Corpuscular Volume 95.8 fl (81-99); Nucleated Red Blood Cells % 0 %; Platelet Count 277 K/mm3 (142-424); Red Blood Count 4.24 M/mm3 (4.20-5.40); Red Cell Distribution Width-SD 45.5 fL; White Blood Count 6.0 K/mm3 (4.8-10.8)
[2024-12-17 19:45] LABS: Alanine Aminotransferase 15 U/L (12-78); Albumin Level 4.4 g/dl (3.5-5.0); Albumin/Globulin Ratio 1.7 (1.1-1.8); Alkaline Phosphatase 54 U/L (38-126); Anion Gap 12.4 mEq/L (5-15); Aspartate Amino Transferase 26 U/L (14-36); Bilirubin,Total 1.1 mg/dl (0.2-1.3); Blood Urea Nitrogen 16 mg/dl (7-17); Calcium 9.9 mg/dl (8.4-10.2); Carbon Dioxide 28 mmol/L (22.0-30.0); Chloride 99 mmol/L (98-107); Cholesterol 209 mg/dl (140-200); Creatinine,Serum 0.80 mg/dl (0.52-1.04); Estimated Glomerular Filt Rate 69 ml/min (>60); GFR (African American) 84 ML/MIN (>60); Globulin 2.6 g/dL (1.3-3.2); Glucose 96 mg/dl (74-100); HDL Cholesterol 51 mg/dl (40-60); Potassium 4.4 mmoL/L (3.5-5.1); Sodium 135 mmol/L (136-145); Total Protein,Serum 7.0 g/dl (6.3-8.2); Triglycerides 247 mg/dl (30-150)
[2024-12-17 20:10] LABS: Thyroid Stimulating Hormone 0.05 uIU/mL (0.465-4.68)
[2024-12-17 21:34] LABS: Hepatitis C Ab Qual. W/ RFX NEGATIVE (Negative)
--- OUTSIDE RECORDS SUMMARY | 2024-12-21 10:03 | XMS_ITS | Encounter Summary ---
Author Organization [facility] Address [address] [place] [address] Care Team Providers Care Train Conductor Name Role Phone Davon Durand MD Primary Care Provider [phone] Jailene Keating NP Unavailable Srinivasa Beaulieu MD Unavailable [phone] Sharmin Mancilla Unavailable Unavailable Estefania Underwood Unavailable [phone] Ceci Lomeli NP Unavailable Unavailable Singh Davis MD Unavailable [phone] Annabel Ojeda RN Unavailable [phone] Chrissy Radford RN Unavailable Unavailable Akosua Moss MD Unavailable [phone] Guerline Stern NP Unavailable [phone] Waylon Penn MD Unavailable Vic Moss MD Unavailable [phone] Encounter Details Date Type Department Care Team (Late st Contact Info) Description 07/24/2017 Clinical Update [facility] Physicians - Surgical Oncology, [place] [address] [facility], [address] [place] [address] Ruby, Tomeka M., RN Social History Tobacco [...] [facility] Medical Office Building, [address] [place] [address] 05/06/2025 1:30 PM EST Appointment [facility] Physicians - Surgical Oncology, [address] [place] [address] Akosua Moss MD [address] [facility]. [address] [place], [place] [address] 05/28/2025 12:15 PM EST Appointment [facility], [address] [place] [address] Srinivasa Beaulieu MD [address] [place] [address] 05/28/2025 12:30 PM EST Appointment [facility], [address] [place] [address] documented as of this encounter Visit Diagnoses Not on filedocumented in this encounter Additional Health Concerns Infection Onset Date Last Indicated Resolved Time Pneumonia Comment:10/20/17; requires respiratory isolation. 10/21/2017 10/21/2017 10/24/2017 10:33 AM EDT documented as of this encounter Care Teams Train Conductor Relationship Specialty Start Date End Date Davon Durand MD PCP - General Family Medicine 08/30/15 Jailene Keating NP [address] [place] [address] Registered Nurse 03/04/18 Srinivasa Beaulieu MD [address] [place] [address] Hematology and Oncology 05/19/18 Sharmin Mancilla Camp Coordinator Social Work 10/29/18 Estefania Underwood PA [address] [place] [address] Surgical Oncology 08/26/20 Ceci Lomeli NP [address] [place] [id number] Nurse Practitioner Nurse Practitioner, Family 09/01/20 Singh Davis MD [address] [place] [address] General Surgery 01/12/21 Annabel Ojeda RN [address] [place] [address] Registered Nurse 01/16/21 Chrissy Radford, RN Registered Nurse 07/11/21 Akosua Moss MD [address] [place] [address] Surgical Oncology 10/12/21 [place] [address] [facility] [place], [place] [address] Nurse Practitioner Nurse Practitioner, Family 04/20/22 Waylon Penn MD [address] [place], [place] [address] Female Pelvic Medicine and Reconstructive Surgery 06/24/22 [place] [address] [place] [address] Otolaryngology 12/05/22 documented as of this encounter
--- OUTSIDE RECORDS SUMMARY | 2024-12-21 10:03 | XMS_ITS | Encounter Summary ---
Author Organization [facility] Address [address] [place] [address] Care Team Providers Care Dry Drug Worker Name Role Phone Davon Durand MD Primary Care Provider [phone] Jailene Keating NP Unavailable Srinivasa Beaulieu MD Unavailable [phone] Sharmin Mancilla Unavailable Unavailable Estefania Underwood Unavailable [phone] Ceci Lomeli NP Unavailable Unavailable Singh Davis MD Unavailable [phone] Annabel Ojeda RN Unavailable [phone] Chrissy Radford RN Unavailable Unavailable Akosua Moss MD Unavailable [phone] Guerline Stern NP Unavailable [phone] Waylon Penn MD Unavailable Vic Moss MD Unavailable [phone] Encounter Details Date Type Department Care Team (Latest Contact Info) Description 07/01/2017 Preop Surgical Orders [facility] Physicians - Surgical Oncology, [place] [address] [facility], [address] [place] [address] [place], Tomeka M., RN Malignant neoplasm of right breast in female, estrogen receptor positive, unspecified site of breast ([facility]) (Primary Dx) Social History Tobacco Use [...] Description 05/06/2025 12:30 PM EST Appointment [facility] Medical Office Building, [address] [place] [address] 05/06/2025 1:30 PM EST Appointment [facility] Physicians - Surgical Oncology, [address] [place] [address] Akosua Moss MD [address] [facility] [address] [place] [address] 05/28/2025 12:15 PM EST Appointment [facility], [facility] [address] [place] [address] Srinivasa Beaulieu MD [address] [place] [address] 05/28/2025 12:30 PM EST Appointment The [address] [place] [address] documented as of this encounter Visit Diagnoses Diagnosis Malignant neoplasm of right breast in female, estrogen receptor positive, unspecified site of breast ([facility])- Primary documented in this encounter Additional Health Concerns Infection Onset Date Last Indicated Resolved Time Pneumonia Comment:10/20/17; requires respiratory isolation. 10/21/2017 10/21/2017 10/24/2017 10:33 AM EDT documented as of this encounter Care Teams Dry Drug Worker Relationship Specialty Start Date End Date Davon Durand MD PCP - General Family Medicine 08/30/15 Jailene Keating NP [address] [place] [address] Registered Nurse 03/04/18 Srinivasa Beaulieu MD [address] [place] [address] Hematology and Oncology 05/19/18 Sharmin Mancilla Labor Economics Professor Social Work 10/29/18 Estefania Underwood PA [address] [place] [address] Surgical Oncology 08/26/20 Ceci Lomeli NP [address] [place] [address] Nurse Practitioner Nurse Practitioner, Family 09/01/20 Singh Davis MD [address] [place] [address] General Surgery 01/12/21 Annabel Ojeda RN [address] [place] [address] Registered Nurse 01/16/21 Chrissy Radford RN Registered Nurse 07/11/21 Akosua Moss MD [address] [place] [address] Surgical Oncology 10/12/21 Guerline Stern COMMUNICATIONS COORDINATOR [address] [place] [address] Nurse Practitioner Nurse Practitioner, Family 04/20/22 Waylon Penn MD [address] [facility] [address] [place] [address] Female Pelvic Medicine and Reconstructive Surgery 06/24/22 [place] [address] [place], [place] [address] Otolaryngology 12/05/22 documented as of this encounter
--- OUTSIDE RECORDS SUMMARY | 2024-12-21 10:03 | XMS_ITS | Encounter Summary ---
Author Organization [facility] Address [address] [place] [address] Care Team Providers Care Hand Assembler Name Role Phone Davon Durand MD Primary Care Provider [phone] Jailene Keating NP Unavailable [phone] Srinivasa Beaulieu MD Unavailable [phone] Sharmin Mancilla Unavailable Unavailable Estefania Underwood Unavailable [phone] Ceci Lomeli NP Unavailable Unavailable Singh Davis MD Unavailable [phone] Annabel Ojeda RN Unavailable [phone] Chrissy Radford RN Unavailable Unavailable Akosua Moss MD Unavailable [phone] Guerline Stern NP Unavailable [phone] Waylon Penn MD Unavailable [phone] Vic Moss MD Unavailable [phone] Encounter Details Date Type Department Care Team (Late st Contact Info) Description 07/17/2017 Orders Only C-Level, Diagnostic Services [address] [place] [address] Desmond Duran, RT Screening for [...] Description 05/06/2025 12:30 PM EST Appointment [facility] Medical Office Building, [address] [place] [address] 05/06/2025 1:30 PM EST Appointment [facility] Physicians - Surgical Oncology, [address] [place] [address] Akosua Moss MD [address] [place] [address]. [address] [place] [address] 05/28/2025 12:15 PM EST Appointment [facility], [address] [place] [address] Srinivasa Beaulieu MD [address] [place] [address] 05/28/2025 12:30 PM EST Appointment [facility], [address] [place] [address] documented as of this encounter Visit Diagnoses Diagnosis Screening for osteoporosis Special screening for osteoporosis documented in this encounter Additional Health Concerns Infection Onset Date Last Indicated Resolved Time Pneumonia Comment:10/20/17; requires respiratory isolation. 10/21/2017 10/21/2017 10/24/2017 10:33 AM EDT documented as of this encounter Care Teams Hand Assembler Relationship Specialty Start Date End Date Davon Durand MD PCP - General Family Medicine 08/30/15 Jailene Keating NP [address] [place] [address] Registered Nurse 03/04/18 Srinivasa Beaulieu MD [address] [place] [address] Hematology and Oncology 05/19/18 Sharmin Mancilla Full Time Babysitter Social Work 10/29/18 Estefania Underwood PA [address] [place] [address] Surgical Oncology 08/26/20 Ceci Lomeli NP [address] [place] [address] Nurse Practitioner Nurse Practitioner, Family 09/01/20 Singh Davis MD [address] [place] [address] General Surgery 01/12/21 Annabel Ojeda RN [address] [place] [address] Registered Nurse 01/16/21 Chrissy Radford RN Registered Nurse 07/11/21 Akosua Moss MD [address] [place] [address] Surgical Oncology 10/12/21 [place] [address] [facility] [place], [place] [id number] Nurse Practitioner Nurse Practitioner, Family 04/20/22 Waylon Penn MD [address] [place] [address] Female Pelvic Medicine and Reconstructive Surgery 06/24/22 [place] [address] [facility] [place], [place] [id number] Otolaryngology 12/05/22 documented as of this encounter
--- OUTSIDE RECORDS SUMMARY | 2024-12-21 10:03 | XMS_ITS | Data Portability ---
Author Organization [facility] Address [address] [place] [address] Assessment Encounter Date Assessment Date Assessment LastModified by Organization Details LastModified Time 10/05/2016 10/05/2016 Patient presente d to office today for their Medicare Annual Wellness Visit. Education was provided on healthy nutrition, including a diet rich in fruits and vegetables, minimizing simple carbohydrates, salt, and saturated fats. Encouraged regular cardiovascular exercise such as walking at least 30 minutes daily, 5 times per week. Emphasized preventive health measures and educated pt on fall prevention and community-based lifestyle interventions to help reduce health risks and promote healthy living. brother killed mva mom is 96 s/p tkr swank sneus Not available 10/05/2016 12:46:10 02/27/2018 02/27/2018 Lizeth is well appearing and pleasant in office today. She has recently had quite a journey with breast cancer and severe side effects with chemo treatments. States she is now finally feeling a little better everyday . Reports she had colorectal cancer screening in June 2017, will request records. Reports she had [id number] Influenza vaccine at [facility] 3 weeks ago, will request records. Will call with today's serum results. Continue all meds as prescribed. Repeat AWE 1 year. [email or web address] Not available 03/09/2018 21:15:26 Plan of Treatment Reminders Order Date Submit Date Provider Last Modified By Organization Details Last Modified Time Details Appointments None recorded. Lab CMP, serum or plasma 2017 018 [facility], [address], [address], [place], [address], 8 07:38:46 CBC w/ auto diff 2017 018 [facility], [address], [place], [place], [address], 8 07:38:46 lipid panel, serum 2017 018 [facility], [address], [place] [address], [place], [address], 8 07:38:47 CBC w/ auto diff 2017 018 [facility], [address], [place] [address], [place], [address], 8 08:42:52 CMP, serum or plasma 2017 018 [facility], [address], [place], [place], [address], 8 08:42:53 unlisted lab - PT+PTT+INR 2017 018 [facility], [address], [place] [address], [place], [address], 8 08:42:54 TSH, ultra-sens itive, serum 2017 018 [facility], [address], [place] [address], [place], [address], 8 08:42:55 lipid panel, serum 2016 017 sneus [facility], [address], [place], [place], [address], 7 08:27:28 CMP, serum or plasma 2016 017 sneus [facility], [address], [place] [address], [place], [address], 7 08:27:28 lipid panel, serum 2016 017 [facility], [address], [place] [address], [place], [address], 7 06:06:04 CMP, serum or plasma 2016 017 [facility], [address], [place], [place], [address], 7 06:06:04 CBC w/ auto diff 2016 017 [place] [facility], [address], [place], [place], [address], 7 06:06:03 Referral medical nutrition therapy referral 2017 018 [email or web address] Not available 8 12:09:14 general surgeon referral 2016 017 VANGIE Waylon Penn MD, [address] [place] [address] , [address], [place], [address], 7 15:14:23 Procedures None recorded. Surgeries None recorded. Imaging XR, chest 2017 018 [email or web address] Not available 8 12:01:51 Medication Orders Lincocin 300 mg/mL injection solution 2018 019 Not available 9 16:22:21 Celestone Soluspan 6 mg/mL suspension for injection 2018 019 [email or web address] Not available 9 16:23:51 Keflex 500 mg capsule 2018 019 INTERFACE [facility], [address] [place] [address], [place], [address], 9 16:15:24 Bromfed DM 2 mg-30 mg-10 mg/5 mL oral syrup 2018 019 INTERFACE [facility], [address] [place] [address], [place], [address], 9 16:15:24 atorvastat in 10 mg tablet 2017 018 INTERFACE [facility], [address] [place], [address], 8 13:27:36 atorvastat in 10 mg tablet 2016 017 [email or web address] [facility], [address] [place], [address], 7 08:27:28 atorvastat in 10 mg tablet 2016 017 [email or web address] [facility], [address] [place], [address], 7 09:02:15 Patient TargetsNo targets recorded. Patient Instructions Encounter Date Encounter Id Patient Instructions Last Modified By Organization Details Last Modified Time 10/05/2016 [id number] advance care planning: care instructions [email or web address] Not available 10/08/2016 08:01:08 04/19/2017 [id number] high blood pressure: care instructions [email or web address] Not available 04/23/2017 08:27:28 learning about high blood pressure [email or web address] Not available 04/23/2017 08:27:28 A healthy lifestyle: care instructions [email or web address] Not available 04/23/2017 08:27:28 07/15/2017 [id number] A healthy lifestyle: care instructions Not available 07/15/2017 15:51:57 rhythm strip, EKG* [email or web address] Not available 07/30/2017 16:33:59 pt cleared for surgery for right breast lumpectomy based on H & P and EKG. Not available 07/15/2017 12:14:06 01/19/2019 [id number] take medication as prescribed, keep well hydrated, RTC prn Not available 01/19/2019 16:34:53 Reason for Referral General Surgeon Referral for Cystocele Referring Physician: Davon Durand, Family Medicine, Encounter Date: 04/19/2017 Medical Nutrition Therapy Re ferrbang for Diet education Referring Physician: Guerline Gonzalez, Family Medicine, Encounter Date: 02/27/2018 Results Created Date Observation Date Name Description Value Unit Range Abnormal Flag Note LastModifiedBy Organization Detail LastModifiedTime 10/06/19 17 10/06/2016 CBC w/ auto diff WBC 6.6 x10e3 /uL 3.4-10 .8 Not Available [facility] ([facility]) [address] [place], [address], 10/06/2016 06:06:03 10/06/19 17 10/06/2016 CBC w/ auto diff RBC 4.35 x10e6 /uL 3.77-5 .28 Not Available [facility] ([facility]) [address] [place], [address], 10/06/2016 06:06:03 10/06/19 17 10/06/2016 CBC w/ auto diff hemoglobin 13.4 g/dL 11.1-1 5.9 Not Available [facility] ([facility]) [address] [place], [address], 10/06/2016 06:06:03 10/06/19 17 10/06/2016 CBC w/ auto diff hematocrit 39.6 % 34.0-4 6.6 Not Available [facility] ([facility]) [address] [place], [address], 10/06/2016 06:06:03 10/06/19 17 10/06/2016 CBC w/ auto diff MCV 91 fL 79-97 Not Available [facility] ([facility]) [address] [place], [address], 10/06/2016 06:06:03 10/06/19 17 10/06/2016 CBC w/ auto diff MCH 30.8 pg 26.6-3 3.0 Not Available [facility] ([facility]) [address] [place], [address], 10/06/2016 06:06:03 10/06/19 17 10/06/2016 CBC w/ auto diff MCHC 33.8 g/dL 31.5-3 5.7 Not Available [facility] ([facility]) [address] [facility], [place], [address], 10/06/2016 06:06:03 10/06/19 17 10/06/2016 CBC w/ auto diff RDW 13.8 % 12.3-1 5.4 Not Available [facility] ([facility]) [address] [facility], [place], [address], 10/06/2016 06:06:03 10/06/19 17 10/06/2016 CBC w/ auto diff platelets 270 x10e3 /uL 150-37 9 Not Available [facility] ([facility]) [address] [facility], [place], [address], 10/06/2016 06:06:03 10/06/19 17 10/06/2016 CBC w/ auto diff neutrophils 53 % Not Available [facility] ([facility]) [address] [place], [address], 10/06/2016 06:06:03 10/06/19 17 10/06/2016 CBC w/ auto diff lymphs 34 % Not Available [facility] ([facility]) [address] [place], [address], 10/06/2016 06:06:03 10/06/19 17 10/06/2016 CBC w/ auto diff monocytes 11 % Not Available [facility] ([facility]) [address] [facility], [place], [address], 10/06/2016 06:06:03 10/06/19 17 10/06/2016 CBC w/ auto diff eos 1 % Not Available [facility] ([facility]) [address] [place], [address], 10/06/2016 06:06:03 10/06/19 17 10/06/2016 CBC w/ auto diff basos 1 % Not Available [facility] ([facility]) [address] [place], [address], 10/06/2016 06:06:03 10/06/19 17 10/06/2016 CBC w/ auto diff immature cells PREANALYTICS TEAM LEAD Not Available [facility] ([facility]) [address] [place], [address], 10/06/2016 06:06:03 10/06/19 17 10/06/2016 CBC w/ auto diff neutrophils (absolute) 3.5 x10e3 /uL 1.4-7. 0 Not Available [facility] ([facility]) [address] [place], [address], 10/06/2016 06:06:03 10/06/19 17 10/06/2016 CBC w/ auto diff lymphs (absolute) 2.2 x10e3 /uL 0.7-3. 1 Not Available [facility] ([facility]) [address] [place], [address], 10/06/2016 06:06:03 10/06/19 17 10/06/2016 CBC w/ auto diff monocytes(ab solute) 0.7 x10e3 /uL 0.1-0. 9 Not Available [facility] ([facility]) [address] [place], [address], 10/06/2016 06:06:03 10/06/19 17 10/06/2016 CBC w/ auto diff eos (absolute) 0.1 x10e3 /uL 0.0-0. 4 Not Available [facility] ([facility]) [address] [place], [address], 10/06/2016 06:06:03 10/06/19 17 10/06/2016 CBC w/ auto diff baso (absolute) 0.0 x10e3 /uL 0.0-0. 2 Not Available [facility] ([facility]) [address] [place], [address], 10/06/2016 06:06:03 10/06/19 17 10/06/2016 CBC w/ auto diff immature granulocytes 0 % Not Available [facility]) [address] [facility], [place], [address], 10/06/2016 06:06:03 10/06/19 17 10/06/2016 CBC w/ auto diff immature grans (abs) 0.0 x10e3 /uL 0.0-0. 1 Not Available [facility] ([facility]) [address] [facility], [place], [address], 10/06/2016 06:06:03 10/06/19 17 10/06/2016 CBC w/ auto diff NRBC PREANALYTICS TEAM LEAD Not Available [facility] ([facility]) [address] [place], [address], 10/06/2016 06:06:03 10/06/19 17 10/06/2016 CBC w/ auto diff hematology comments: PREANALYTICS TEAM LEAD Not Available [facility] ([facility]) [address] [facility], [place], [address], 10/06/2016 06:06:03 10/06/19 17 10/06/2016 CMP, serum or plasm a glucose, serum 99 mg/dL 65-99 Not Available [facility] ([facility]) [address] [place], [address], 10/06/2016 06:06:04 10/06/19 17 10/06/2016 CMP, serum or plasm a BUN 11 mg/dL 8-27 Not Available [facility] ([facility]) [address] [place], [address], 10/06/2016 06:06:04 10/06/19 17 10/06/2016 CMP, serum or plasm a creatinine, serum 0.75 mg/dL 0.57-1 .00 Not Available [facility] ([facility]) [address] [place], [address], 10/06/2016 06:06:04 10/06/19 17 10/06/2016 CMP, serum or plasm a eGFR if nonafricn AM 80 mL/mi n/1.7 3 >59 Not Available [facility] ([facility]) [address] [place], [address], 10/06/2016 06:06:04 10/06/19 17 10/06/2016 CMP, serum or plasm a eGFR if africn AM 92 mL/mi n/1.7 3 >59 Not Available [facility] ([facility]) [address] [place], [address], 10/06/2016 06:06:04 10/06/19 17 10/06/2016 CMP, serum or plasm a BUN/creatini ne ratio 15 12-28 Not Available [facility] ([facility]) [address] [place], [address], 10/06/2016 06:06:04 10/06/19 17 10/06/2016 CMP, serum or plasm a sodium, serum 140 mmol/ L 134-14 4 Not Available [facility] ([facility]) [address] [place], [address], 10/06/2016 06:06:04 10/06/19 17 10/06/2016 CMP, serum or plasm a potassium, serum 4.2 mmol/ L 3.5-5. 2 Not Available [facility] ([facility]) [address] [place], [address], 10/06/2016 06:06:04 10/06/19 17 10/06/2016 CMP, serum or plasm a chloride, serum 101 mmol/ L 96-106 Not Available [facility] ([facility]) [address] [place], [address], 10/06/2016 06:06:04 10/06/19 17 10/06/2016 CMP, serum or plasm a carbon dioxide, total 22 mmol/ L 18-29 Not Available [facility] ([facility]) [address] [place], [address], 10/06/2016 06:06:04 10/06/19 17 10/06/2016 CMP, serum or plasm a calcium, serum 9.7 mg/dL 8.7-10 .3 Not Available [facility] ([facility]) [address] [place], [address], 10/06/2016 06:06:04 10/06/19 17 10/06/2016 CMP, serum or plasm a protein, total, serum 7.2 g/dL 6.0-8. 5 Not Available [facility] ([facility]) [address] [place], [address], 10/06/2016 06:06:04 10/06/19 17 10/06/2016 CMP, serum or plasm a albumin, serum 4.5 g/dL 3.5-4. 8 Not Available [facility] ([facility]) [address] [place], [address], 10/06/2016 06:06:04 10/06/19 17 10/06/2016 CMP, serum or plasm a globulin, total 2.7 g/dL 1.5-4. 5 Not Available [facility] ([facility]) [address] [place], [address], 10/06/2016 06:06:04 10/06/19 17 10/06/2016 CMP, serum or plasm a A/G ratio 1.7 1.2-2. 2 Not Available [facility] ([facility]) [address] [place], [address], 10/06/2016 06:06:04 10/06/19 17 10/06/2016 CMP, serum or plasm a bilirubin, total 0.9 mg/dL 0.0-1. 2 Not Available [facility] ([facility]) [address] [place], [address], 10/06/2016 06:06:04 10/06/19 17 10/06/2016 CMP, serum or plasm a alkaline phosphatase, S 73 IU/L 39-117 Not Available [facility] ([facility]) [address] [facility] [place], [address], 10/06/2016 06:06:04 10/06/19 17 10/06/2016 CMP, serum or plasm a AST (SGOT) 18 IU/L 0-40 Not Available [facility] ([facility]) [address] [facility], [place], [address], 10/06/2016 06:06:04 10/06/19 17 10/06/2016 CMP, serum or plasm a ALT (SGPT) 14 IU/L 0-32 Not Available [facility] ([facility]) [address] [facility], [place], [address], 10/06/2016 06:06:04 10/06/19 17 10/06/2016 lipid panel , serum cholesterol, total 244 mg/dL 100-19 9 above high normal Not Available [facility] ([facility]) [address] [place], [address], 10/06/2016 06:06:04 10/06/19 17 10/06/2016 lipid panel , serum triglyceride s 184 mg/dL 0-149 above high normal Not Available [facility] ([facility]) [address] [place], [address], 10/06/2016 06:06:04 10/06/19 17 10/06/2016 lipid panel , serum HDL cholesterol 56 mg/dL >39 Not Available [facility] ([facility]) [address] [place], [address], 10/06/2016 06:06:04 10/06/19 17 10/06/2016 lipid panel , serum VLDL cholesterol lynnette 37 mg/dL 5-40 Not Available [facility] ([facility]) [address] [place], [address], 10/06/2016 06:06:04 10/06/19 17 10/06/2016 lipid panel , serum LDL cholesterol calc 151 mg/dL 0-99 above high normal Not Available [facility] ([facility]) [address] [facility] [place], [address], 10/06/2016 06:06:04 10/06/19 17 10/06/2016 lipid panel , serum comment: PREANALYTICS TEAM LEAD Not Available [facility] ([facility]) [address] [facility] [place], [address], 10/06/2016 06:06:04 04/19/20 17 04/20/2017 CMP, serum or plasm a glucose, serum 108 mg/dL 65-99 above high normal Not Available [facility] ([facility]) [address] [facility] [place], [address], 04/20/2017 08:37:26 04/19/20 17 04/20/2017 CMP, serum or plasm a BUN 16 mg/dL 8-27 Not Available [facility] ([facility]) [address] [facility] [place], [address], 04/20/2017 08:37:26 04/19/20 17 04/20/2017 CMP, serum or plasm a creatinine, serum 1.05 mg/dL 0.57-1 .00 above high normal Not Available [facility] ([facility]) [address] [facility] [place], [address], 04/20/2017 08:37:26 04/19/20 17 04/20/2017 CMP, serum or plasm a eGFR if nonafricn AM 53 mL/mi n/1.7 3 >59 below low normal Not Available [facility] ([facility]) [address] [facility] [place], [address], 04/20/2017 08:37:26 04/19/20 17 04/20/2017 CMP, serum or plasm a eGFR if africn AM 61 mL/mi n/1.7 3 >59 Not Available [facility] ([facility]) [address] [facility] [place], [address], 04/20/2017 08:37:26 04/19/20 17 04/20/2017 CMP, serum or plasm a BUN/creatini ne ratio 15 12-28 Not Available [facility] ([facility]) [address] [place], [address], 04/20/2017 08:37:26 04/19/20 17 04/20/2017 CMP, serum or plasm a sodium, serum 138 mmol/ L 134-14 4 Not Available [facility] ([facility]) [address] [place], [address], 04/20/2017 08:37:26 04/19/20 17 04/20/2017 CMP, serum or plasm a potassium, serum 4.4 mmol/ L 3.5-5. 2 Not Available [facility] ([facility]) [address] [place], [address], 04/20/2017 08:37:26 04/19/20 17 04/20/2017 CMP, serum or plasm a chloride, serum 100 mmol/ L 96-106 Not Available [facility] ([facility]) [address] [place], [address], 04/20/2017 08:37:26 04/19/20 17 04/20/2017 CMP, serum or plasm a carbon dioxide, total 21 mmol/ L 18-29 Not Available [facility] ([facility]) [address] [place], [address], 04/20/2017 08:37:26 04/19/20 17 04/20/2017 CMP, serum or plasm a calcium, serum 9.5 mg/dL 8.7-10 .3 Not Available [facility] ([facility]) [address] [place] [address], [address], 04/20/2017 08:37:26 04/19/20 17 04/20/2017 CMP, serum or plasm a protein, total, serum 7.3 g/dL 6.0-8. 5 Not Available [facility] ([facility]) [address] [facility] [place], [address], 04/20/2017 08:37:26 04/19/20 17 04/20/2017 CMP, serum or plasm a albumin, serum 4.5 g/dL 3.5-4. 8 Not Available [facility] ([facility] [address] [facility] [place], [address], 04/20/2017 08:37:26 04/19/20 17 04/20/2017 CMP, serum or plasm a globulin, total 2.8 g/dL 1.5-4. 5 Not Available [facility] ([facility]) [address] [facility] [place], [address], 04/20/2017 08:37:26 04/19/20 17 04/20/2017 CMP, serum or plasm a A/G ratio 1.6 1.2-2. 2 Not Available [facility] ([facility]) [address] [facility], [place], [address], 04/20/2017 08:37:26 04/19/20 17 04/20/2017 CMP, serum or plasm a bilirubin, total 1.0 mg/dL 0.0-1. 2 Not Available [facility] ([facility]) [address] [facility] [place], [address], 04/20/2017 08:37:26 04/19/2004/20/2017 CMP, serum or plasm a alkaline phosphatase, S 78 IU/L 39-117 Not Available [facility] ([facility]) [address] [facility] [place], [address], 04/20/2017 08:37:26 04/19/20 17 04/20/2017 CMP, serum or plasm a AST (SGOT) 24 IU/L 0-40 Not Available [facility] ([facility]) [address] [facility] [place], [address], 04/20/2017 08:37:26 04/19/20 17 04/20/2017 CMP, serum or plasm a ALT (SGPT) 19 IU/L 0-32 Not Available [facility] ([facility]) [address] [facility] [place], [address], 04/20/2017 08:37:26 04/19/20 17 04/20/2017 lipid panel , serum cholesterol, total 182 mg/dL 100-19 9 Not Available [facility] ([facility]) [address] [facility], [place], [address], 04/20/2017 08:37:26 04/19/20 17 04/20/2017 lipid panel , serum triglyceride s 182 mg/dL 0-149 above high normal Not Available [facility] ([facility]) [address] [facility], [place], [address], 04/20/2017 08:37:26 04/19/20 17 04/20/2017 lipid panel , serum HDL cholesterol 53 mg/dL >39 Not Available [facility] ([facility]) [address] [facility], [place], [address], 04/20/2017 08:37:26 04/19/20 17 04/20/2017 lipid panel , serum VLDL cholesterol lynnette 36 mg/dL 5-40 Not Available [facility] ([facility]) [address] [facility], [place], [address], 04/20/2017 08:37:26 04/19/20 17 04/20/2017 lipid panel , serum LDL cholesterol calc 93 mg/dL 0-99 Not Available [facility] ([facility]) [address] [facility], [place], [address], 04/20/2017 08:37:26 04/19/20 17 04/20/2017 lipid panel , serum comment: PREANALYTICS TEAM LEAD Not Available [facility] ([facility]) [address] [facility], [place], [address], 04/20/2017 08:37:26 07/15/19 18 07/16/2017 CBC w/ auto diff WBC 7.3 x10e3 /uL 3.4-10 .8 Not Available [facility] ([facility]) [address] [facility] [place], [address], 07/16/2017 08:42:52 07/15/19 18 07/16/2017 CBC w/ auto diff RBC 4.28 x10e6 /uL 3.77-5 .28 Not Available [facility] ([facility]) [address] [facility] [place], [address], 07/16/2017 08:42:52 07/15/19 18 07/16/2017 CBC w/ auto diff hemoglobin 13.3 g/dL 11.1-1 5.9 Not Available [facility] ([facility]) [address] [facility] [place], [address], 07/16/2017 08:42:52 07/15/19 18 07/16/2017 CBC w/ auto diff hematocrit 38.6 % 34.0-4 6.6 Not Available [facility] ([facility]) [address] [place], [address], 07/16/2017 08:42:52 07/15/19 18 07/16/2017 CBC w/ auto diff MCV 90 fL 79-97 Not Available [facility] ([facility]) [address] [place], [address], 07/16/2017 08:42:52 07/15/19 18 07/16/2017 CBC w/ auto diff MCH 31.1 pg 26.6-3 3.0 Not Available [facility] ([facility]) [address] [place], [address], 07/16/2017 08:42:52 07/15/19 18 07/16/2017 CBC w/ auto diff MCHC 34.5 g/dL 31.5-3 5.7 Not Available [facility] ([facility]) [address] [place], [address], 07/16/2017 08:42:52 07/15/19 18 07/16/2017 CBC w/ auto diff RDW 13.7 % 12.3-1 5.4 Not Available [facility] ([facility]) [address], [place], [address], 07/16/2017 08:42:52 07/15/19 18 07/16/2017 CBC w/ auto diff platelets 278 x10e3 /uL 150-37 9 Not Available [facility] ([facility]) [address], [place], [address], 07/16/2017 08:42:52 07/15/19 18 07/16/2017 CBC w/ auto diff neutrophils 56 % not estab. Not Available [facility] ([facility]) [address], [place], [address], 07/16/2017 08:42:52 07/15/19 18 07/16/2017 CBC w/ auto diff lymphs 30 % not estab. Not Available [facility] ([facility]) [address], [place], [address], 07/16/2017 08:42:52 07/15/19 18 07/16/2017 CBC w/ auto diff monocytes 12 % not estab. Not Available [facility] ([facility]) [address] [facility], [place], [address], 07/16/2017 08:42:52 07/15/19 18 07/16/2017 CBC w/ auto diff eos 1 % not estab. Not Available [facility] ([facility]) [address], [place], [address], 07/16/2017 08:42:52 07/15/19 18 07/16/2017 CBC w/ auto diff basos 1 % not estab. Not Available [facility] ([facility]) [address] [facility], [place], [address], 07/16/2017 08:42:52 07/15/19 18 07/16/2017 CBC w/ auto diff immature cells PREANALYTICS TEAM LEAD Not Available [facility] ([facility]) [address] [place], [address], 07/16/2017 08:42:52 07/15/19 18 07/16/2017 CBC w/ auto diff neutrophils (absolute) 4.1 x10e3 /uL 1.4-7. 0 Not Available [facility] ([facility]) [address] [place], [address], 07/16/2017 08:42:52 07/15/19 18 07/16/2017 CBC w/ auto diff lymphs (absolute) 2.2 x10e3 /uL 0.7-3. 1 Not Available [facility] ([facility]) [address] [place], [address], 07/16/2017 08:42:52 07/15/19 18 07/16/2017 CBC w/ auto diff monocytes(ab solute) 0.9 x10e3 /uL 0.1-0. 9 Not Available [facility] ([facility]) [address] [place], [address], 07/16/2017 08:42:52 07/15/19 18 07/16/2017 CBC w/ auto diff eos (absolute) 0.1 x10e3 /uL 0.0-0. 4 Not Available [facility] ([facility]) [address] [place], [address], 07/16/2017 08:42:52 07/15/19 18 07/16/2017 CBC w/ auto diff baso (absolute) 0.0 x10e3 /uL 0.0-0. 2 Not Available [facility] ([facility]) [address] [place], [address], 07/16/2017 08:42:52 07/15/19 18 07/16/2017 CBC w/ auto diff immature granulocytes 0 % not estab. Not Available [facility] ([facility]) [address] [place], [address], 07/16/2017 08:42:52 07/15/19 18 07/16/2017 CBC w/ auto diff immature grans (abs) 0.0 x10e3 /uL 0.0-0. 1 Not Available [facility] ([facility]) [address] [place], [address], 07/16/2017 08:42:52 07/15/19 18 07/16/2017 CBC w/ auto diff NRBC PREANALYTICS TEAM LEAD Not Available [facility] ([facility]) [address] [place], [address], 07/16/2017 08:42:52 07/15/19 18 07/16/2017 CBC w/ auto diff hematology comments: PREANALYTICS TEAM LEAD Not Available [facility] ([facility]) [address] [facility] [place], [address], 07/16/2017 08:42:52 07/15/19 18 07/16/2017 CMP, serum or plasm a glucose, serum 81 mg/dL 65-99 Not Available [facility] ([facility]) [address] [facility] [place], [address], 07/16/2017 08:42:53 07/15/19 18 07/16/2017 CMP, serum or plasm a BUN 12 mg/dL 8-27 Not Available [facility] ([facility]) [address] [facility] [place], [address], 07/16/2017 08:42:53 07/15/19 18 07/16/2017 CMP, serum or plasm a creatinine, serum 0.71 mg/dL 0.57-1 .00 Not Available [facility] ([facility]) [address] [facility] [place], [address], 07/16/2017 08:42:53 07/15/19 18 07/16/2017 CMP, serum or plasm a eGFR if nonafricn AM 85 mL/mi n/1.7 3 >59 Not Available [facility] ([facility]) [address] [facility], [place], [address], 07/16/2017 08:42:53 07/15/19 18 07/16/2017 CMP, serum or plasm a eGFR if africn AM 98 mL/mi n/1.7 3 >59 Not Available [facility] ([facility]) [address] [facility] [place], [address], 07/16/2017 08:42:53 07/15/19 18 07/16/2017 CMP, serum or plasm a BUN/creatini ne ratio 17 12-28 Not Available [facility] ([facility]) [address] [facility] [place], [address], 07/16/2017 08:42:53 07/15/19 18 07/16/2017 CMP, serum or plasm a sodium, serum 141 mmol/ L 134-14 4 Not Available [facility] ([facility]) [address] [facility] [place], [address], 07/16/2017 08:42:53 07/15/19 18 07/16/2017 CMP, serum or plasm a potassium, serum 4.2 mmol/ L 3.5-5. 2 Not Available [facility] ([facility]) [address] [facility] [place], [address], 07/16/2017 08:42:53 07/15/19 18 07/16/2017 CMP, serum or plasm a chloride, serum 100 mmol/ L 96-106 Not Available [facility] ([facility]) [address] [facility] [place], [address], 07/16/2017 08:42:53 07/15/1907/16/2017 CMP, serum or plasm a carbon dioxide, total 24 mmol/ L 18- Not Available [facility] ([facility]) [address] [facility] [place], [address], 07/16/2017 08:42:53 07/15/19 18 07/16/2017 CMP, serum or plasm a calcium, serum 9.6 mg/dL 8.7-10 .3 Not Available [facility] ([facility]) [address] [place], [address], 07/16/2017 08:42:53 07/15/19 18 07/16/2017 CMP, serum or plasm a protein, total, serum 7.2 g/dL 6.0-8. 5 Not Available [facility] ([facility]) [address] [place], [address], 07/16/2017 08:42:53 07/15/19 18 07/16/2017 CMP, serum or plasm a albumin, serum 4.2 g/dL 3.5-4. 8 Not Available [facility] ([facility]) [address] [place], [address], 07/16/2017 08:42:53 07/15/19 18 07/16/2017 CMP, serum or plasm a globulin, total 3.0 g/dL 1.5-4. 5 Not Available [facility] ([facility]) [address] [place], [address], 07/16/2017 08:42:53 07/15/19 18 07/16/2017 CMP, serum or plasm a A/G ratio 1.4 1.2-2. 2 Not Available [facility] ([facility]) [address] [place], [address], 07/16/2017 08:42:53 07/15/19 18 07/16/2017 CMP, serum or plasm a bilirubin, total 0.7 mg/dL 0.0-1. 2 Not Available [facility] ([facility]) [address] [place], [address], 07/16/2017 08:42:53 07/15/19 18 07/16/2017 CMP, serum or plasm a alkaline phosphatase, S 79 IU/L 39-117 Not Available [facility] ([facility]) [address] [place], [address], 07/16/2017 08:42:53 07/15/19 18 07/16/2017 CMP, serum or plasm a AST (SGOT) 23 IU/L 0-40 Not Available [facility] ([facility]) [address] [place], [address], 07/16/2017 08:42:53 07/15/19 18 07/16/2017 CMP, serum or plasm a ALT (SGPT) 19 IU/L 0-32 Not Available [facility] ([facility]) [address] [place], [address], 07/16/2017 08:42:53 07/15/19 18 07/16/2017 PT+PT T+INR INR 0.9 0.8-1. 2 Refer ence inter harrison is for non-a ntico agula nereyda patie nts. Sugge sted INR thera peuti c range for Vitam in K antag onist thera py: Stand mendy Dose (mode rate inten sity thera peuti c range ): 2.0 - 3.0 Highe r inten sity thera peuti c range 2.5 - 3.5 Not Available [facility] ([facility]) [address] [place], [address], 07/16/2017 08:42:54 07/15/19 18 07/16/2017 PT+PT T+INR prothrombin time 9.8 sec 9.1-12 .0 Not Available [facility] ([facility]) [address] [place], [address], 07/16/2017 08:42:54 07/15/19 18 07/16/2017 PT+PT T+INR APTT 26 sec 24-33 This test has not been valid ated for monit oring unfra ction ated hepar in thera py. aPTT- based thera peuti c range s for unfra ction ated hepar in thera py have not been estab cassandra patel For gener al guide lines on Hepar in [facility] , refer to the [facility] Dire[facility] tory of Tamir nixon. Not Available [facility] ([facility]) [address] [facility], [place], [address], 07/16/2017 08:42:54 07/15/19 18 07/16/2017 TSH, ultra -sens itive , serum TSH 2.530 uIU/m L 0.450- 4.500 Not Available [facility] ([facility]) [address] [facility], [place], [address], 07/16/2017 08:42:55 02/28/20 18 02/28/2018 CBC w/ auto diff WBC 6.1 x10e3 /uL 3.4-10 .8 Not Available [facility] ([facility]) [address] [facility], [place], [address], 02/28/2018 07:38:46 02/28/20 18 02/28/2018 CBC w/ auto diff RBC 4.16 x10e6 /uL 3.77-5 .28 Not Available [facility] ([facility]) [address] [facility], [place], [address], 02/28/2018 07:38:46 02/28/20 18 02/28/2018 CBC w/ auto diff hemoglobin 12.4 g/dL 11.1-1 5.9 Not Available [facility] ([facility]) [address] [place], [address], 02/28/2018 07:38:46 02/28/20 18 02/28/2018 CBC w/ auto diff hematocrit 37.4 % 34.0-4 6.6 Not Available [facility] ([facility]) [address] [place], [address], 02/28/2018 07:38:46 02/28/20 18 02/28/2018 CBC w/ auto diff MCV 90 fL 79-97 Not Available [facility] ([facility]) [address] [facility], [place], [address], 02/28/2018 07:38:46 02/28/20 18 02/28/2018 CBC w/ auto diff MCH 29.8 pg 26.6-3 3.0 Not Available [facility] ([facility]) [address] [facility], [place], [address], 02/28/2018 07:38:46 02/28/20 18 02/28/2018 CBC w/ auto diff MCHC 33.2 g/dL 31.5-3 5.7 Not Available [facility] ([facility]) [address] [facility], [place], [address], 02/28/2018 07:38:46 02/28/20 18 02/28/2018 CBC w/ auto diff RDW 14.1 % 12.3-1 5.4 Not Available [facility] ([facility]) [address] [facility], [place], [address], 02/28/2018 07:38:46 02/28/20 18 02/28/2018 CBC w/ auto diff platelets 219 x10e3 /uL 150-37 9 Not Available [facility] ([facility]) [address] [facility], [place], [address], 02/28/2018 07:38:46 02/28/20 18 02/28/2018 CBC w/ auto diff neutrophils 57 % not estab. Not Available [facility] ([facility]) [address] [facility], [place], [address], 02/28/2018 07:38:46 02/28/20 18 02/28/2018 CBC w/ auto diff lymphs 28 % not estab. Not Available [facility] ([facility]) [address] [facility], [place], [address], 02/28/2018 07:38:46 02/28/20 18 02/28/2018 CBC w/ auto diff monocytes 12 % not estab. Not Available [facility] ([facility]) [address] [place], [address], 02/28/2018 07:38:46 02/28/20 18 02/28/2018 CBC w/ auto diff eos 2 % not estab. Not Available [facility] ([facility]) [address] [place], [address], 02/28/2018 07:38:46 02/28/20 18 02/28/2018 CBC w/ auto diff basos 1 % not estab. Not Available [facility] ([facility]) [address] [place], [address], 02/28/2018 07:38:46 02/28/20 18 02/28/2018 CBC w/ auto diff immature cells PRE[employer]LYT[employer] TEAM LEAD Not Available [facility] ([facility]) [address] [place], [address], 02/28/2018 07:38:46 02/28/20 18 02/28/2018 CBC w/ auto diff neutrophils (absolute) 3.6 x10e3 /uL 1.4-7. 0 Not Available [facility] ([facility]) [address] [place], [address], 02/28/2018 07:38:46 02/28/20 18 02/28/2018 CBC w/ auto diff lymphs (absolute) 1.7 x10e3 /uL 0.7-3. 1 Not Available [facility] ([facility]) [address] [place], [address], 02/28/2018 07:38:46 02/28/20 18 02/28/2018 CBC w/ auto diff monocytes(ab solute) 0.7 x10e3 /uL 0.1-0. 9 Not Available [facility] ([facility]) [address] [place], [address], 02/28/2018 07:38:46 02/28/20 18 02/28/2018 CBC w/ auto diff eos (absolute) 0.1 x10e3 /uL 0.0-0. 4 Not Available [facility] ([facility]) [address] [facility] [place], [address], 02/28/2018 07:38:46 02/28/20 18 02/28/2018 CBC w/ auto diff baso (absolute) 0.0 x10e3 /uL 0.0-0. 2 Not Available [facility] ([facility]) [address] [facility], [place], [address], 02/28/2018 07:38:46 02/28/20 18 02/28/2018 CBC w/ auto diff immature granulocytes 0 % not estab. Not Available [facility] ([facility]) [address] [facility] [place], [address], 02/28/2018 07:38:46 02/28/20 18 02/28/2018 CBC w/ auto diff immature grans (abs) 0.0 x10e3 /uL 0.0-0. 1 Not Available [facility] ([facility]) [address] [facility], [place], [address], 02/28/2018 07:38:46 02/28/20 18 02/28/2018 CBC w/ auto diff NRBC [employer]LY[employer] TEAM LEAD Not Available [facility] ([facility]) [address] [facility] [place], [address], 02/28/2018 07:38:46 02/28/20 18 02/28/2018 CBC w/ auto diff hematology comments: PREANALYTICS TEAM LEAD Not Available [facility] ([facility]) [address] [facility], [place], [address], 02/28/2018 07:38:46 02/28/20 18 02/28/2018 CMP, serum or plasm a glucose 104 mg/dL 65-99 above high normal Not Available [facility] ([facility]) [address] [facility] [place], [address], 02/28/2018 07:38:46 02/28/20 18 02/28/2018 CMP, serum or plasm a BUN 11 mg/dL 8-27 Not Available [facility] ([facility]) [address] [facility] [place], [address], 02/28/2018 07:38:46 02/28/20 18 02/28/2018 CMP, serum or plasm a creatinine 0.67 mg/dL 0.57-1 .00 Not Available [facility] ([facility]) [address] [facility] [place], [address], 02/28/2018 07:38:46 02/28/20 18 02/28/2018 CMP, serum or plasm a eGFR if nonafricn AM 87 mL/mi n/1.7 3 >59 Not Available [facility] ([facility]) [address] [facility] [place], [address], 02/28/2018 07:38:46 02/28/20 18 02/28/2018 CMP, serum or plasm a eGFR if africn AM 101 mL/mi n/1.7 3 >59 Not Available [facility] ([facility]) [address] [facility] [place], [address], 02/28/2018 07:38:46 02/28/20 18 02/28/2018 CMP, serum or plasm a BUN/creatini ne ratio 16 12-28 Not Available [facility] ([facility]) [address] [facility] [place], [address], 02/28/2018 07:38:46 02/28/20 18 02/28/2018 CMP, serum or plasm a sodium 141 mmol/ L 134-14 4 Not Available [facility] ([facility]) [address] [facility] [place], [address], 02/28/2018 07:38:46 02/28/20 18 02/28/2018 CMP, serum or plasm a potassium 4.5 mmol/ L 3.5-5. 2 Not Available [facility] ([facility]) [address] [facility] [place], [address], 02/28/2018 07:38:46 02/28/20 18 02/28/2018 CMP, serum or plasm a chloride 101 mmol/ L 96-106 Not Available [facility] ([facility]) [address] [facility] [place], [address], 02/28/2018 07:38:46 02/28/20 18 02/28/2018 CMP, serum or plasm a carbon dioxide, total 23 mmol/ L 20-29 Not Available [facility] ([facility]) [address] [facility] [place], [address], 02/28/2018 07:38:46 02/28/20 18 02/28/2018 CMP, serum or plasm a calcium 9.3 mg/dL 8.7-10 .3 Not Available [facility] ([facility]) [address] [place], [address], 02/28/2018 07:38:46 02/28/20 18 02/28/2018 CMP, serum or plasm a protein, total 6.8 g/dL 6.0-8. 5 Not Available [facility] ([facility]) [address] [facility] [place], [address], 02/28/2018 07:38:46 02/28/20 18 02/28/2018 CMP, serum or plasm a albumin 4.3 g/dL 3.5-4. 8 Not Available [facility] ([facility]) [address] [place], [address], 02/28/2018 07:38:46 02/28/20 18 02/28/2018 CMP, serum or plasm a globulin, total 2.5 g/dL 1.5-4. 5 Not Available [facility] ([facility]) [address] [place], [address], 02/28/2018 07:38:46 02/28/20 18 02/28/2018 CMP, serum or plasm a A/G ratio 1.7 1.2-2. 2 Not Available [facility] ([facility]) [address] [place], [address], 02/28/2018 07:38:46 02/28/20 18 02/28/2018 CMP, serum or plasm a bilirubin, total 0.5 mg/dL 0.0-1. 2 Not Available [facility] ([facility]) [address] [place], [address], 02/28/2018 07:38:46 02/28/20 18 02/28/2018 CMP, serum or plasm a alkaline phosphatase 60 IU/L 39-117 Not Available [facility] ([facility]) [address] [place], [address], 02/28/2018 07:38:46 02/28/20 18 02/28/2018 CMP, serum or plasm a AST (SGOT) 21 IU/L 0-40 Not Available [facility] ([facility]) [address] [place], [address], 02/28/2018 07:38:46 02/28/20 18 02/28/2018 CMP, serum or plasm a ALT (SGPT) 14 IU/L 0-32 Not Available [facility] ([facility]) [address] [place], [address], 02/28/2018 07:38:46 02/28/20 18 02/28/2018 lipid panel , serum cholesterol, total 158 mg/dL 100-19 9 Not Available [facility] ([facility]) [address] [place], [address], 02/28/2018 07:38:47 02/28/20 18 02/28/2018 lipid panel , serum triglyceride s 174 mg/dL 0-149 above high normal Not Available [facility] ([facility]) [address] [place], [address], 02/28/2018 07:38:47 02/28/20 18 02/28/2018 lipid panel , serum HDL cholesterol 51 mg/dL >39 Not Available [facility] ([facility]) [address] [facility], [place], [address], 02/28/2018 07:38:47 02/28/20 18 02/28/2018 lipid panel , serum VLDL cholesterol lynnette 35 mg/dL 5-40 Not Available [facility] ([facility]) [address] [facility], [place], [address], 02/28/2018 07:38:47 02/28/20 18 02/28/2018 lipid panel , serum LDL cholesterol calc 72 mg/dL 0-99 Not Available [facility] ([facility]) [address] [facility], [place], [address], 02/28/2018 07:38:47 02/28/20 18 02/28/2018 lipid panel , serum comment: PREANALYTICS TEAM LEAD Not Available [facility] ([facility]) [address] [facility], [place], [address], 02/28/2018 07:38:47 06/06/20 17 06/05/2017 MAMMO , scree nancy, bilat eral No observ ation record ed. [address] , [place], [address], 06/25/2017 14:36:30 06/11/20 17 06/11/2017 MAMMO , scree nancy, bilat eral No observ ation record ed. [address] , [place], [address], 06/25/2017 14:35:34 06/11/20 17 06/11/2017 MAMMO , scree nancy, bilat eral No observ ation record ed. [address] , [place], [address], 06/25/2017 14:35:28 06/11/20 17 06/11/2017 , humaira oviedo, bilat eral No observ ation record ed. [address] , [place], [place], [address], 06/25/2017 14:35:20 06/11/20 17 06/11/2017 MAMMO , scree nancy, bilat eral No observ ation record ed. [address] , [place], [place], [address], 06/25/2017 14:35:05 06/11/20 17 bone densi ty No observ ation record ed. [email or web address] [address] , [place], [place], [address], 06/12/2017 11:18:31 06/11/20 17 06/05/2017 bone densi ty No observ ation record ed. [email or web address] [address] , [place], [place], [address], 06/12/2017 11:17:28 06/18/19 18 06/18/2017 MAMMO , scree nancy, bilat eral No observ ation record ed. [address] , [place], [place], [address], 06/19/2017 07:59:33 06/18/19 18 06/18/2017 US, humaira t No observ ation record ed. [address] , [place], [address], 06/19/2017 07:59:17 06/18/19 18 06/18/2017 biops y of humaira t; lizzy rubalcava us, needl e core, using imagi ng marylin hernandeze (PROC ) No observ ation record ed. [address] , [place], [address], 06/19/2017 07:59:03 06/18/19 18 06/18/2017 MAMMO , diagn ostic , bilat eral No observ ation record ed. [email or web address] [address] , [place], [address], 06/19/2017 07:58:48 06/27/19 18 MRI, humaira oviedo, reggie garcial, w/wo contr ast No observ ation record ed. [email or web address] [address] , [place], [address], 07/10/2017 11:50:44 07/15/19 18 07/15/2017 XR, chest No observ ation record ed. Not Available 2017 15:21:40 07/26/19 18 06/18/2017 US, humaira oviedo, unila teral No observ ation record ed. [email or web address] [address] , [place], [address], 07/30/2017 09:58:29 07/26/19 18 06/18/2017 , humaira oviedo, unila teral No observ ation record ed. [email or web address] [address] , [place], [address], 07/30/2017 09:58:52 08/14/19 18 07/15/2017 rhyth m strip , EKG* No observ ation record ed. [email or web address] Not Available 2017 17:31:26 11/02/19 18 11/01/2017 XR, chest , 2 view No observ ation record ed. [email or web address] Not Available 10/16 09:05:33 04/21/20 18 06/05/2017 DEXA No observ ation record ed. [email or web address] Not Available 2017 09:30:08 Result Notes None recorded. Problems Name Problem SNOMED Code Status Onset Date Resolution Date Notes Provider Name and Address Organization Details Recorded Time Malignant tumor of breast 221467295 Active 2017 [facility] Dinorah lindquist [place] - [facility] 8 09:55:29 Mixed hyperlipide ashly 525037320 Active 2016 Crystal Connor null, [place] - [facility] 7 09:02:22 Diverticula r disease 500364503 Active 2016 Carol Ryan null, [place] - [facility] 7 09:02:22 Hemorrhoids 47133197 Active 2016 Carol [place] - [facility] 7 09:02:21 Osteoporosi s 72778364 Active 2016 Carol [place] - [facility] 7 09:02:22 Allergic rhinitis 52960045 Active 2016 [place] - [facility] 7 09:02:21 Problem Notes None recorded. Procedures Surgical History Date Name Laterality Status Provider Name and Address Organization Details Recorded Time 8 Advance Care Planning completed Armando [facility]nedegar [place] [facility] 02/27/2018 10:00:47 8 Breast Lumpectomy completed Armando Snedegar [facility] 02/27/2018 09:56:02 Breast Biopsy completed Anais Yu [facility] 10/03/2016 09:09:54 Knee Surgery completed Armando Snedegar [facility] 02/27/2018 10:06:43 Colonoscopy completed Armando Snedegar [facility] 02/27/2018 10:12:28 Imaging Results None recorded. Procedure Notes None recorded. Medical Equipment None Reported. Allergies Allergen ID Allergen Name Allergen Category Reaction Reaction Severity Criticality Documentation Date Start Date Code Code System Note Provider Name and Address Organization Details Recorded Time 54302 Cipro medicatio n Not available Not available Not available 03/23/20162007 25083 3 RxNorm Comme nt: Cipro ; Not Available [facility] 6 09:44:00 Medications Name Sig Start Date Stop Date Status Note LastModified by Organization Details LastModified Time Bromfed DM 2 mg-30 mg-10 mg/5 mL oral syrup Take 10 mL every 4 hours by oral route as needed for 5 days. 2018 active Not Available Not Available Not Avai lable anastrozo le 1 mg tablet 02/27 completed Not Available Not Available Not Available prednison e 10 mg tablet 02/27 completed Not Available Not Available Not Available Evista 60 mg tablet take 1 tablet (60 mg) by oral route once daily for 30 days 05/09 completed Evista 60 mg oral tablet;R ecorded Status: Recorded on: 11/24/19 10 10:47AM; Disconti nued Status: Disconti nued on: 05/09/20 10 10:35AM; User: Alexa Trinh on: 12/17/19 10 Not Available Not Available Not Available atorvasta tin 10 mg tablet one po every day active Not Available Not Available No t Available Celestone Soluspan 6 mg/mL suspensio n for injection Take 1 mL by injectio n route. 2018 active Not Available Not Available Not Avai lable Keflex 500 mg capsule Take 1 capsule 3 times a day by oral route for 10 days. 2018 active Not Available Not Available Not Avai lable ondansetr on HCl 8 mg tablet 02/27 completed Not Available Not Available Not Available meloxicam 15 mg tablet Take 1 tablet every day by oral route as directed . 07/15 completed Not Available Not Available Not Available prednison e 20 mg tablet 01/19 completed Not Available Not Available Not Available sulfameth oxazole 800 mg-trimet hoprim 160 mg tablet take 1 tablet by oral route 2 times a day for 10 days 01/19 completed Not Available Not Available Not Available tramadol 50 mg tablet take 1 tablet by oral route 2 times a day as needed 10/16 completed Not Available Not Available Not Available Lipitor 20 mg tablet one po every day 10/25 completed Lipitor 20 mg oral tablet;R ecorded Status: Recorded on: 03/20/20 08 10:05PM; Disconti nued Status: Disconti nued on: 10/26/19 09 11:54AM; User: luc Not Available Not Available Not Available meloxicam 7.5 mg tablet take 1 tablet (7.5 mg) by oral route once daily 10/16 completed meloxica m 7.5 mg oral tablet;R ecorded Status: Recorded on: 11/23/19 16 9:19AM;U ser: k; Indicati on: Osteoart hritis - ([phone]) Not Available Not Available Not Available Vitamins B Complex tablet one po evewry day 200712 /2011 completed Vitamins B Complex oral tablet;R ecorded Status: Recorded on: 03/20/20 08 10:04PM; Disconti nued Status: Disconti nued on: 06/28/19 11 3:12PM;U ser: [email or web address] Not Available Not Available Not Available Fosamax 70 mg tablet take 1 tablet (70 mg) by oral route once weekly in the morning, at least 30 minutes before the first food, beverage , or medicati on of the day for 90 days 06/02 completed Fosamax 70 mg oral tablet;R ecorded Status: Recorded on: 10/10/19 12 10:12AM; Disconti nued Status: Disconti nued on: 06/02/20 13 9:50AM;U ser: [email or web address];E st. Completi on: 10/05/19 13;Print ed: 10/10/19 12 Not Available Not Available Not Available Lincocin 300 mg/mL injection solution Take 1 mL by injectio n route. 2018 active Not Available Not Available Not Avai lable dexametha sone 4 mg tablet 02/27 completed Not Available Not Available Not Available Mariella-D 12 Hour 60 mg-120 mg tablet,ex tended release take 1 tablet (60-120 mg) by oral route daily for 90 days 04/10 completed Mariella- D 12 Hour 60-120 mg oral tablet extended release 12 hr;Recor ded Status: Recorded on: 03/15/20 10 9:56AM;D iscontin ued Status: Disconti nued on: 04/10/20 10 4:32PM;U ser: [email or web address]; Est. Completi on: 03/10/20 11 Not Available Not Available Not Available gabapenti n 300 mg capsule 1 po qd 02/27 completed Not Available Not Available Not Available Baby Aspirin 81 mg chewable tablet chew 1 tablet by oral route QD for 100 days do not take if you are allergic to aspirin or its componen ts, or have question s of gastroin testinal intolera nce 07/12 completed Baby Aspirin 81 mg oral tablet,faith mcmahan; Recorded Status: Recorded on: 07/08/19 12 2:41PM;U ser: neuss;Es t. Completi on: 07/12/19 15 Not Available Not Available Not Available mupirocin 2 % topical ointment 02/27 completed Not Available Not Available Not Available gabapenti n 100 mg capsule Take 1 capsule every day by oral route as needed for 30 days. active Not Available Not Available No t Available Aspir-81 mg tablet,de layed release one po every day 10/09 completed Aspir-81 81 mg oral tablet,d elayed release (DR/EC); Recorded Status: Recorded on: 03/20/20 08 10:03PM; Disconti nued Status: Disconti nued on: 10/10/19 12 9:07AM;U ser: [email or web address] Not Available Not Available Not Available levofloxa serjio 750 mg tablet 02/27 completed Not Available Not Available Not Available methylpre dnisolone 4 mg tablets in a dose pack take as directed 10/16 completed Not Available Not Available Not Available Naprosyn 500 mg tablet take 1 tablet (500 mg) by oral route 2 times per day with food for 30 days 06/02 completed Naprosyn 500 mg oral tablet;R ecorded Status: Recorded on: 07/08/19 12 2:41PM;D iscontin ued Status: Disconti nued on: 06/02/20 13 9:50AM;U ser: neuss;Es t. Completi on: 08/07/19 12;Indic ation: Plantar fascitis - (728.71) Not Available Not Available Not Available cefdinir 300 mg capsule 02/27 completed Not Available Not Available Not Available tamoxifen 20 mg tablet Take 1 tablet every day by oral route as directed for 90 days. active Not Available Not Available No t Available mometason e 0.1 % topical cream 02/27 completed Not Available Not Available Not Available amoxicill in 875 mg-potass ium clavulana te 125 mg tablet 02/27 completed Not Available Not Available Not Available amoxicill in 500 mg-potass ium clavulana te 125 mg tablet 02/27 completed Not Available Not Available Not Available oxycodone 5 mg tablet 01/19 completed Not Available Not Available Not Available Daily Multi-Vit jasmine tablet take 1 tablet by oral route once daily with food 2010 active Not Available Not Available Not Avai lable Vitamin oral liquid one po every day 06/28 completed Vitamin Oral Liquid;R ecorded Status: Recorded on: 03/20/20 08 10:03PM; Disconti nued Status: Disconti nued on: 06/28/19 11 3:12PM;U ser: bishopk Not Available Not Available Not Available Asprin Ec Low Dose 81 mg tablet,de layed release Take 1 tablet every day by oral route as directed . active Not Available Not Available No t Available aprepitan t 125 mg (1)-80 mg (2) capsules in a dose pack 02/27 completed Not Available Not Available Not Available duloxetin e 30 mg capsule,d elayed release Take 1 capsule every day by oral route as directed for 30 days. 02/27 completed Not Available Not Available Not Available Calcium 500 + D 500 mg-10 mcg (400 unit) chewable tablet one po every day 2007 active Not Available Not Available Not Avai lable Mariella Allergy 180 mg tablet Take 1 tablet every day by oral route. active Not Available Not Available No t Available Vitals Date Recorded Body height Body mass index (BMI) Body weight Respiratory rate Heart rate Oxygen saturation Oxygen saturation in Arterial blood by Pulse oximetry Body temperature Systolic And Diastolic Provider Name and Address Organization Details Last Updated DateTime 8 160.02 cm 26.6 kg/m2 70754.8 6 g 18 /min 74 /min 97 % 97 % 98 [degF] 118/72 mm[Hg] Angelina Marshall [place] - [facility] 8 08:56:40 Date Recorded Body height Body weight Body mass index (BMI) Heart rate Respiratory rate Systolic And Diastolic Provider Name and Address Organization Details Last Updated DateTime 7 160.02 cm 86936.3 g 25.5 kg/m2 60 /min 18 /min 112/78 mm[Hg] Anais Ramirezhop [place] - [facility] 7 11:49:51 Date Recorded Body height Body mass index (BMI) Body weight Respiratory rate Body temperature Heart rate Oxygen saturation Oxygen saturation in Arterial blood by Pulse oximetry Systolic And Diastolic Provider Name and Address Organization Details Last Updated DateTime 9 160.02 cm 26.7 kg/m2 93723.4 5 g 18 /min 98.2 [degF] 90 /min 95 % 95 % 115/72 mm[Hg] Angelina Marshall [place] - [facility] 9 15:37:22 Date Recorded Body height Body mass index (BMI) Body weight Body temperature Heart rate Oxygen saturation Oxygen saturation in Arterial blood by Pulse oximetry Systolic And Diastolic Provider Name and Address Organization Details Last Updated DateTime 8 160.02 cm 26.6 kg/m2 06841.8 6 g 98.3 [degF] 68 /min 97 % 97 % 110/70 mm[Hg] Armando Copeland [place] - [facility] 8 10:15:04 Date Recorded Body height Body mass index (BMI) Body weight Heart rate Respiratory rate Systolic And Diastolic Provider Name and Address Organization Details Last Updated DateTime 7 160.02 cm 25.3 kg/m2 74461.7 1 g 80 /min 18 /min 114/70 mm[Hg] Anais Yu [facility] 7 08:17:34 Social History Question Answer Notes LastModified by Organizat ion Details LastModified Time Tobacco Smoking Status Never Smoker [facility] 10/05/2016 11:50:19 Do You Have An Advance Directive? Yes [email or web address] Information not available 07/15/2017 Are You Blind Or Do You Have Difficulty Seeing? No [email or web address] Information not available 10/05/2016 Are You Deaf Or Do You Have Serious Difficulty Hearing? No [email or web address] Information not available 10/05/2016 Which Illicit Or Recreational Drugs Have You Used? Never [email or web address] Information not available 10/05/2016 Single Or Multi-level Home/work? Multi Level Home [email or web address] Information not available 10/05/2016 Marital Status [email or web address] Informatio n not available 10/05/2016 What Was The Date Of Your Most Recent Tobacco Screening? 02/27/2018 Information not available 01/07/2019 How Much Tobacco Do You Smoke? No Information not available 02/27/2018 Has Tobacco Cessation Counseling Been Provided? No [email or web address] Information not available 10/05/2016 How Many Years Have You Smoked Tobacco? 0 Information not available 02/27/2018 Do You Have Difficulty Walking Or Climbing Stairs? No Information not available 10/05/2016 Sex: Female Functional Status Question Answer Note LastModified by Organizat ion Details LastModified Time What is your level of alcohol consumption? None [email or web address] Information not available 10/05/2016 Urinary incontinence assessment performed? Yes [email or web address] Information not available 10/16/2016 Do you have difficulty doing errands alone? No Information not available 10/05/2016 What is your occupation? retired teacher [email or web address] Information not available 10/05/2016 Do you have difficulty dressing or bathing? No [email or web address] Information not available 10/05/2016 What is your exercise level? Occasional [email or web address] Information not available 10/05/2016 Mental Status Question Answer Note LastModified by Organization D etails LastModified Time Do you have difficulty concentrating, remembering or making decisions? No [email or web address] Information no t available 10/05/2016 Family History Relationship Description Onset Age of this Age Resolved Age Notes LastModified by Organization Details LastModified Time Mother Cataract [email or web address] Not availabl e 10/03/2016 09:07:10 Mother Osteoarthrit is [email or web address] Not available 2016 09:09:15 Paternal Aunt Malignant tumor of colon [email or web address] Not available 2016 09:07:40 Father Malignant neoplasm of lung metast asis to bone [email or web address] Not available 10/03/2016 09:08:35 Father Pulmonary emphysema [email or web address] Not available 2016 09:09:00 Brother Malignant neoplastic disease [email or web address] Not available 2016 09:09:28 Medical History No medical history recorded. Gynecological History Statement/Question Response Menses Monthly N Most Recent Mammogram Obstetrics History GPAL:G 0 P 0 0 0 0 Immunizations Vaccine Type Date Status Note Provider Nam e and Address Organization Details Recorded Time Pneumococcal conjugate PCV 13 7 completed Not [facility] 03:54:45 influenza, unspecified formulation 4 completed Crystal Connor null, [place] - [facility] 04/19/2017 09:02:37 influenza, unspecified formulation 5 completed Not Available [facility] 07/18/2019 02:21:47 Tdap 0 completed Not Available [facility] 07/18/2019 02:21:47 zoster live 9 completed Crystal Connor null, [place] - [facility] 04/19/2017 09:02:37 pneumococcal polysaccharide PPV23 9 completed Crystal Connor null, [place] - [facility] 04/19/2017 09:02:37 Past Encounters Encounter ID Performer Location Encounter Start Date Encounter Closed Date Diagnosis/Indication Diagnosis SNOMED-CT Code Diagnosis ICD10 Code Diagnosis Note [id number] [facility] [address] [place] [address] 05/11/2014 00:00:00 [id number] [facility] [address] [place] [address] 10/26/2014 00:00:00 [id number] [facility] [address] [place] [address] 07/29/2015 00:00:00 [id number] [facility] [address] [place] [address] 11/23/2015 00:00:00 [id number] [facility] [address] [place] [address] 05/11/2014 00:00:00 [id number] [facility] [address] [place] [address] 09/17/2007 00:00:00 [id number] [facility] [address] [place] [address] 09/29/2007 00:00:00 [id number] [facility] [address] [place] [address] 01/23/2008 00:00:00 [id number] [facility] [address] [place] [address] 10/01/2008 00:00:00 [id number] [facility] [address] [place] [address] 06/01/2009 00:00:00 [id number] [facility] [address] [place] [address] 11/16/2009 00:00:00 [id number] [facility] [address] [place] [address] 12/16/2009 00:00:00 [id number] [facility] [address] [place] [address] 01/03/2010 00:00:00 [id number] [facility] [address] [place] [address] 05/09/2010 00:00:00 [id number] [facility] [address] [place] [address] 06/28/2010 00:00:00 [id number] [facility] [address] [place] [address] 10/31/2010 00:00:00 [id number] [facility] [address] [place] [address] 04/26/2011 00:00:00 [id number] [facility] [address] [place] [address] 05/04/2011 00:00:00 [id number] [facility] [address] [place] [address] 07/06/2011 00:00:00 [id number] [facility] [address] [place] [address] 10/10/2011 00:00:00 [id number] [facility] [address] [place] [address] 05/27/2012 00:00:00 [id number] [facility] [address] [place] [address] 11/25/2012 00:00:00 [id number] [facility] [address] [place] [address] 02/27/2013 00:00:00 [id number] [facility] [address] [place] [address] 06/02/2013 00:00:00 [id number] Davon Durand MD [address] [place] [address] 10/05/2016 11:04:53 10/05/2016 13:12:55 General examination of patient 173702627 Z00.00 History of osteopenia 47 1909202 Z87.39 Renewal of prescription 589601484 Z76.0 Mixed hyperlipidemia 267 460491 E78.2 Diverticular disease 397 000144 K57.90 [id number] Davon Durand MD [address] [place] [address] 04/19/2017 08:02:29 04/19/2017 11:19:06 Mixed hyperlipidemia 452258660 E78.2 Administra tion of pneumococcal vaccine 51628468 Z23 Essential hypertension 09983046 I10 Body mass index 25-29 - overweight 391762378 Z68.25 Renewal of prescription 427130716 Z76.0 Cystocele 432225381 N81. 10 [id number] Almita Carvalho [address] [place] [address] 07/15/2017 08:30:57 07/15/2017 12:01:51 Body mass index 25-29 - overweight 553046819 Z68.26 Pre-surger y evaluation 409063553 Z01.818 see attached form [id number] Guerline Gonzalez [address] [place] [address] 02/27/2018 09:47:19 02/27/2018 12:09:14 Mixed hyperlipidemia 542027721 E78.2 Adult heal th examination 217726334 Z00.01 Examinatio n of blood pressure 240646879 Z01.30 Diet education 55792487 Z71.3 Counseling 267852022 Z71 .82 Exercise counseljamaica diaz Patient encouraged to exercise 30 minutes 5 days a week. Malignant tumor of breast 591354566 C50.011 Renewal of prescription 425814499 Z76.0 Osteoporosis 93712355 M8 1.0 [id number] Almita CarvalhoCHRISTOPHER [facility] [address] [place] [address] 01/19/2019 15:13:25 01/19/2019 16:38:44 Pansinusitis 578002256 J32.4 Spasmodic cough 64002344 R05 Health Concerns Section Related Observation LastModified by Organization Detai ls LastModified Time None Recorded Concern Status LastModified by Organization Details LastModified Time None Recorded Advance Directives Directive Y: Payers Insurance Date Sequence Insurance Name Policy Number Policy Townsend Covered Member ID Townsend Member ID Guarantor Name 01/19/2019 1 [facility] [id number] Lizeth Woodall [id number] Lizeth Woodall Notes Date Note Type Note Provider Name and Address Organization Details Recorded Time 7 text/html Medicare Annual Wellness VisitReported bypatient.Diet and Nutrition:healthy diet; discussed vitamin and supplement use; discussed portion control; discussed maintaining calcium balance Fracture Risk:no recent explained fracture; no sudden unexplained fractures; no previous musculoskeletal injuries; one small foot fracture years ago Physical Activity:good physical condition; discussed weightbearing activities Depression Risk:never feels sad, empty, or tearful; no loss of interest in activities; no significant changes in weight; no sleep disturbances or insomnia; no agitation; no loss of energy; no feelings of worthlessness or guilt; no thoughts of suicide; no history of depression; no history of mood disorders Orientation:no disorientation to time; no disorientation to date; no disorientation to place Concentration and Memory:no decreased concentrating ability; no memory lapses or loss; does not forget words Speech/Motor difficulties:no speech difficulties; no difficulty expressing formulated concepts; no difficulty with fine manipulative tasks; no difficulty writing/copying; no slowed reaction time; does not knock things over when trying to pick them up Hearing:no loss of hearing Vision:no vision problems Activities of Daily Living:able to bathe with limited or no assistance; able to contol urination and bowels; able to dress with limited or no assistance; able to feed self with limited or no assistance; able to get out of chair or bed with limited or no assistance; able to groom with limited or no assistance; able to toilet with limited or no assistance Instrumental Activities of Daily Living:able to do house work with limited or no assistance; able to grocery shop with limited or no assistance; able to manage medications with limited or no assistance; able to manage money with limited or no assistance; able to prepare meals with limited or no assistance; able to use the phone with limited or no assistance Falls Risk Assessment:no frequent falls while walking; no fall in the past year; no fall since last visit Home Safety:no unsafe markell hazzards; no unsafe stairs; no unsafe gas appliances; working smoke/CO detectors; use of seatbelts; no vision or hearing loss while driving; good lighting in the home Davon Colliermaurice ameena [place] - [facility] 10/07/2016 20:40:04 7 text/html Care Management - HyperlipidemiaReported bypatient.Prognosis:expecte d outcome: stabilize; prognosis: good Control:improving;not at goal Complications:no coronary artery disease; no heart attack; no cardiovascular disease; no pancreatitis; no stroke recent R metacarpal fracture--healed--x-ray yesterday at [facility] Davon lindquist [place] [facility] 05/02/2017 15:05:00 8 text/html pre-op evaluation breast surgery on 07/18/17 at [facility] Almita lindquist [place] - [facility] 07/15/2017 12:14:24 8 text/html Medicare Annual Wellness VisitReported bypatient.Diet and Nutrition:healthy diet; discussed vitamin and supplement use Fracture Risk:recent explained fracture; broke foot in 2017 Physical Activity:does not exercise on a regular basis; is getting back to exercising after her chemo treatments this year Depression Risk:never feels sad, empty, or tearful; no loss of interest in activities; no significant changes in weight; no agitation; no feelings of worthlessness or guilt; no thoughts of suicide; no history of depression; no history of mood disorders;sleep disturbances or insomnia;loss of energy Orientation:no disorientation to time; no disorientation to date; no disorientation to place Concentration and Memory:no decreased concentrating ability; no memory lapses or loss; does not forget words Speech/Motor difficulties:no speech difficulties; no difficulty expressing formulated concepts; no difficulty with fine manipulative tasks; no difficulty writing/copying; no slowed reaction time; does not knock things over when trying to pick them up Hearing:no loss of hearing Vision:briefly vision loss;blurred vision; has glasses Activities of Daily Living:able to bathe with limited or no assistance; able to contol urination and bowels; able to dress with limited or no assistance; able to feed self with limited or no assistance; able to get out of chair or bed with limited or no assistance; able to groom with limited or no assistance; able to toilet with limited or no assistance Instrumental Activities of Daily Living:able to do house work with limited or no assistance; able to grocery shop with limited or no assistance; able to manage medications with limited or no assistance; able to manage money with limited or no assistance; able to prepare meals with limited or no assistance; able to use the phone with limited or no assistance Falls Risk Assessment:no frequent falls while walking; no fall in the past year; no fall since last visit; no dizziness/vertigo Home Safety:no unsafe markell hazzards; no unsafe stairs; no unsafe gas appliances; working smoke/CO detectors; use of seatbelts; no vision or hearing loss while driving; good lighting in the home;does not wear protective head gear for biking/high volocity;fire arms;does not have hand bars in the bathroom/shower Guerline Gonzalez APRN [address], [place], [address], [place] - [facility] 03/09/2018 21:16:57 9 text/html Sinusitis/AllergyReported bypatient.Location:ethmoid; maxillary; frontal Associated Symptoms:nasal discharge from both nostrils;headache forehead;facial pain bilaterally;sinus pain forehead;thick phlegm in throat;constantly clearing the throat;nasal discharge Onset/Timing:abrupt onset; worse in pm Quality:worsening;hoarsenes s;productive cough Duration:had 2 sinus infections treated with antibiotics in the last year Severity:does not limit daily activities; mild Context:no recent upper respiratory infection; no recent sick contacts; not worse with seasonal allergen exposure; not worse around animals; not worse around pollen; not worse around dust; not worse around molds; not worse with environmental exposure; not worse when mowing grass; not worse with certain foods; not worse with odors Risk Factors:no current smoking or tobacco use; no history of smoking Alleviating factors:relief with antibiotics Aggravating factors:not worse with change in medication; not worse during an upper respiratory infection (a cold); not worse when allergies are activeUpper Respiratory SymptomsReported bypatient.Location:head Quality:congested Associated Symptoms:yellow sputum;shortness of breath [place] - [facility] 01/19/2019 16:35:13 OBGyn Episode No OBEpisode recorded.
--- OUTSIDE RECORDS SUMMARY | 2024-12-21 10:04 | XMS_ITS | Encounter Summary ---
Author Organization [facility] Address [address] [place] [address] Care Team Providers Care Dealer Compliance Representative Name Role Phone Davon Durand MD Primary Care Provider [phone] Jailene Keating NP Unavailable Srinivasa Beaulieu MD Unavailable [phone] Sharmin Mancilla Unavailable Unavailable Estefania Underwood Unavailable [phone] Ceci Lomeli NP Unavailable Unavailable Singh Davis MD Unavailable [phone] Annabel Ojeda RN Unavailable [phone] Chrissy Radford RN Unavailable Unavailable Akosua Moss MD Unavailable [phone] Guerline Stern NP Unavailable [phone] Waylon Penn MD Unavailable [phone] Vic Moss MD Unavailable [phone] Encounter Details Date Type Department Care Team (Latest Contact Info) Description 06/18/2018 Preop Surgical Orders [facility] - UrogynecologyLe [address] [place] [address] Dasha Peralta, RN [address] [place] [address] Uterine prolapse (Primary Dx) Social History Tobacco [...] of Assessment Author No 10/20/2017 3:43 PM EDMagdy Sinclair RN * Do you have serious difficulty [...] Description 05/06/2025 12:30 PM EST Appointment [facility] Medical [facility] Building, [address] [place] [address] 05/06/2025 1:30 PM EST Appointment [facility] - Surgical Oncology, [address] [place] [id number] Akosua Moss MD [address] [place] [address]. [address] [place] [address] 05/28/2025 12:15 PM EST Appointment [facility] [place] [address] [place] [address] Srinivasa Beaulieu MD [address] [place] [address] 05/28/2025 12:30 PM EST Appointment [facility] [place] [address] [place] [address] documented as of this encounter Results * [...] LAB Platelets 192 140 - 400 10*3/uL [facility] MPV 9.7 7.5 - 11.5 fL [facility] Whole Blood (Blood) 06/23/2018 8:17 PM EST 06/23/2018 8:16 PM EST us Waylon Penn MD HEMATOLOGY ORDERABLES Final Result [facility] [address] documented in this encounter Visit Diagnoses Diagnosis Uterine prolapse- Primary Uterine prolapse without mention of vaginal wall prolapse documented in this encounter Care Teams Dealer Compliance Representative Relationship Specialty Start Date End Date Davon Durand MD PCP - General Family Medicine 08/30/15 Jailene Keating NP [address] [place] [address] Registered Nurse 03/04/18 Srinivasa Beaulieu MD [address] [place] [address] Hematology and Oncology 05/19/18 Sharmin Mancilla Returned Goods Receiving Clerk Social Work 10/29/18 Estefania Underwood PA [address] [place] [address] [place] [address] Surgical Oncology 08/26/20 Ceci Lomeli NP [address] [place] [id number] Nurse Practitioner Nurse Practitioner, Family 09/01/20 Singh Davis MD [address] [place] [address] [place] [address] General Surgery 01/12/21 Annabel Ojeda RN [address] [place] [address] Registered Nurse 01/16/21 Chrissy Radford RN Registered Nurse 07/11/21 Akosua Moss MD [address] [place] [address] Surgical Oncology 10/12/21 [place] [address] [place] [address] Nurse Practitioner Nurse Practitioner, Family 04/20/22 Waylon Penn MD [address] [place] [address] Female Pelvic Medicine and Reconstructive Surgery 06/24/22 [place] [address] [place] [address] Otolaryngology 12/05/22 documented as of this encounter
--- OUTSIDE RECORDS SUMMARY | 2024-12-21 10:04 | XMS_ITS | Encounter Summary ---
Author Organization [facility] Address [address] [place] [address] Care Team Providers Care Web Manager Name Role Phone Davon Durand MD Primary Care Provider [phone] Jailene Keating NP Unavailable Srinivasa Beaulieu MD Unavailable [phone] Sharmin Mancilla Unavailable Unavailable Estefnaia Underwood Unavailable [phone] Ceci Lomeli NP Unavailable Unavailable Singh Davis MD Unavailable [phone] Annabel Ojeda RN Unavailable [phone] Chrissy Radford RN Unavailable Unavailable Akosua Moss MD Unavailable Guerline Stern NP Unavailable [phone] Waylon Penn MD Unavailable Vic Moss MD Unavailable [phone] Encounter Details Date Type Department Care Team (Late st Contact Info) Description 03/24/2020 Orders Only [facility] Cancer Center, [facility] [address] [facility] [address] [place], [place] [id number] Srinivasa Beaulieu MD [address] [place] [address] Malignant neoplasm of upper-outer quadrant of right [...] Description 05/06/2025 12:30 PM EST Appointment [facility] Office [facility], [address] [place] [address] 05/06/2025 1:30 PM EST Appointment [facility] Physicians - Surgical Oncology, [facility] [address] [place] [phone] Akosua Moss MD [address] [facility] [place] [address] 05/28/2025 12:15 PM EST Appointment [facility] [address] [place] [address] Srinivasa Beaulieu MD [address] [place] [address] 05/28/2025 12:30 PM EST Appointment [facility] [address] [place] [address] documented as of this encounter Visit Diagnoses Diagnosis Malignant neoplasm of upper-outer quadrant of right breast in female, estrogen receptor positive ([facility] HCC)- Primary documented in this encounter Care Teams Web Manager Relationship Specialty Start Date End Date Davon Durand MD PCP - General Family Medicine 08/30/15 Jailene Keating NP [address] [facility] [address] Registered Nurse 03/04/18 Srinivasa Beaulieu MD [address] [place] [address] Hematology and Oncology 05/19/18 Sharmin Mancilla Tack Cleaner Social Work 10/29/18 Estefania Underwood PA [address] [place] [address] Surgical Oncology 08/26/20 Ceci Lomeli NP [address] [place] [address] Nurse Practitioner Nurse Practitioner, Family 09/01/20 Singh Davis MD [address] [place] [address] General Surgery 01/12/21 Annabel Ojeda RN [address] [place] [address] Registered Nurse 01/16/21 Chrissy Radford RN Registered Nurse 07/11/21 Akosua Moss MD [address] [place] [address] Surgical Oncology 10/12/21 [place] [address] [place] [address] Nurse Practitioner Nurse Practitioner, Family 04/20/22 Waylon Penn MD [address] [place] [address] Female Pelvic Medicine and Reconstructive Surgery 06/24/22 [place] [address] [place], [place] [address] Otolaryngology 12/05/22 documented as of this encounter
--- OUTSIDE RECORDS SUMMARY | 2024-12-21 10:04 | XMS_ITS | Encounter Summary ---
Author Organization [facility] Address [address] [place] [address] Care Team Providers Care Certified Ophthalmic Assistant Name Role Phone Davon Durand MD Primary Care Provider Jailene Keating NP Unavailable Srinivasa Beaulieu MD Unavailable [phone] Sharmin Mancilla Unavailable Unavailable Estefania Underwood Unavailable [phone] Ceci Lomeli NP Unavailable Unavailable Singh Davis MD Unavailable Annabel Ojeda RN Unavailable [phone] Chrissy Radford RN Unavailable Unavailable Akosua Moss MD Unavailable [phone] Guerline Stern NP Unavailable [phone] Waylon Penn MD Unavailable [phone] Vic Moss MD Unavailable [phone] Encounter Details Date Type Department Care Team (Late st Contact Info) Description 03/02/2020 Orders Only [facility] Physicians - Hematology & Oncology, [place] [address] [place] [address] Srinivasa Beaulieu MD [address] [place] [address] Malignant neoplasm of upper-outer quadrant of right [...] Description 05/06/2025 12:30 PM EST Appointment [facility] Office [facility], [address] [place] [address] 05/06/2025 1:30 PM EST Appointment [facility] Physicians - Surgical Oncology, [facility] [address] [place] [address] Akosua Moss MD [address] [facility] [place] [address] 05/28/2025 12:15 PM EST Appointment [facility], [facility] [address] [place] [address] Srinivasa Beaulieu MD [address] [place] [address] 05/28/2025 12:30 PM EST Appointment [facility], [address] [place] [address] documented as of this encounter Results * (ABNORMAL) CA27.29 (03/18/2020 9:35 AM EDT) CA 27-29 47(H) <38 U/mL [facility] Comment: This test was performed using the Siemens Chemiluminescent method. Values obtained from different assay methods cannot be used interchangeably. CA 27.29 levels, regardless of value, should not be interpreted as absolute evidence of the presence or absence of disease. Test performed at [facility] [address] [address] KARLA CONNER MD Serum 03/18/2020 9:35 AM EDT 03/19/2020 1:56 PM EDT us Srinivasa Beaulieu MD CHEMISTRY ORDERABLES Final Res ult [facility] [address] [place] [address], [facility] documented in this encounter Visit Diagnoses Diagnosis Malignant neoplasm of upper-outer quadrant of right breast in female, estrogen receptor positive ([facility] HCC)- Primary documented in this encounter Care Teams Certified Ophthalmic Assistant Relationship Specialty Start Date End Date Davon Durand MD PCP - General Family Medicine 08/30/15 Jailene Keating NP [address] [place] [address] Registered Nurse 03/04/18 Srinivasa Beaulieu MD [address] [place] [address] Hematology and Oncology 05/19/18 Sharmin Mancilla Strategic Analyst Social Work 10/29/18 Estefania Underwood PA [address] [place] [address] Surgical Oncology 08/26/20 Ceci Lomeli NP [address] [place] [address] Nurse Practitioner Nurse Practitioner, Family 09/01/20 Singh Davis MD [address] [place] [address] General Surgery 01/12/21 Annabel Ojeda RN [address] [place] [address] Registered Nurse 01/16/21 Chrissy Radford RN Registered Nurse 07/11/21 Akosua Moss MD [address] [place] [address] Surgical Oncology 10/12/21 [place] [address] [address] [place] [address] Nurse Practitioner Nurse Practitioner, Family 04/20/22 Waylon Penn MD [address] [facility] [place] [address] Female Pelvic Medicine and Reconstructive Surgery 06/24/22 [place] [address] [place] [address] Otolaryngology 12/05/22 documented as of this encounter
--- OUTSIDE RECORDS SUMMARY | 2024-12-21 10:04 | XMS_ITS | Data Portability ---
Author Organization [facility] Address [address] [facility] [address] [place] [address] Assessment Encounter Date Assessment Date Assessment LastModified by Organization Details LastModified Time 08/27/2017 08/27/2017 Follow up yearly [email or web address] Not available 08/27/2017 11:07:40 09/22/2018 09/22/2018 Follow up yearly [email or web address] Not available 09/22/2018 10:19:02 11/17/2019 11/17/2019 Follow up yearly Not available 11/17/2019 07:45:46 11/29/2020 11/29/2020 Follow up yearly Not available 11/29/2020 10:18:39 11/28/2021 11/28/2021 Follow up yearly Not available 11/28/2021 07:14:22 Plan of Treatment Reminders Order Date Submit Date Provider Last Modified By Organization Details Last Modified Time Details Appointments None record ed. Lab None record ed. Referral None record ed. Procedures None record ed. Surgeries None record ed. Imaging None record ed. Medication Orders None record ed. Patient TargetsNo targets recorded. Patient Instructions Encounter Date Encounter Id Patient Instructions Last Modified By Organization Details Last Modified Time 08/27/2017 [id number] actinic keratosis: care instructions [email or web address] Not available 08/27/2017 13:17:52 Education: We discussed the potential diagnostic options, options for further evaluation and treatments, and the risks and benefits of each. [email or web address] Not available 08/27/2017 10:32:45 09/22/2018 [id number] Education: We discussed the potential diagnostic options, options for further evaluation and treatments, and the risks and benefits of each. [email or web address] Not available 09/22/2018 10:19:10 11/17/2019 [id number] Education: We discussed the potential diagnostic options, options for further evaluation and treatments, and the risks and benefits of each. zeyad Not available 11/17/2019 07:45:46 11/29/2020 [id number] Education: We discussed the potential diagnostic options, options for further evaluation and treatments, and the risks and benefits of each. zeyad Not available 11/29/2020 10:18:39 11/28/2021 [id number] Education: We discussed the potential diagnostic options, options for further evaluation and treatments, and the risks and benefits of each. zeyad Not available 11/28/2021 07:14:22 Reason for Referral None Reported. 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 Procedures Surgical History Date Name Laterality Status Provider Name and Address Organization Details Recorded Time 11/29/19 22 Destruction Premalignant Lesion(s) completed [facility] 11/28/2021 10:52:07 11/29/19 22 Destruction BN Lesions completed [facility] 11/28/2021 10:50:27 11/30/19 21 Destruction BN Lesions completed [facility] 11/29/2020 10:34:21 09/23/19 19 Destruction BN Lesions completed [facility] 09/22/2018 10:42:15 08/28/19 18 Destruction Premalignant Lesion(s) completed [facility] 08/27/2017 11:07:21 08/22/19 17 [facility] 11:04:34 Imaging Results None recorded. Procedure Notes None recorded. Medical Equipment None Reported. Allergies No known drug allergies Medications Name Sig Start Date Stop Date Status Note LastModified by Organization Details LastModified Time Multiple Vitamin capsule Daily active Duration : 30 days;Jose quency: daily;Me dication Descript ion: multivit jasmine; Dosage:1 ; Route:or al; refills: 3; Quantity :100 capsule Not Available Not Available Not Available Aspir-Low 81 mg tablet,de layed release Three times a week active Duration : 10 days;Jose quency: 3x /week;Me dication Descript ion: aspirin; Route:or al; refills: 0; Quantity :30 tablet Not Available Not Available Not Available Mariella 180 mg tablet As needed active Duration : 30 days;Jose quency: prn;Medi cation Descript ion: fexofena dine; Dosage:1 ; Route:or al; refills: 12; Quantity :30 tablet Not Available Not Available Not Available diclofena c sodium 75 mg tablet,de layed release 11/16 completed Medicati on Descript ion: diclofen ac; Route:or al; refills: 0 Not Available Not Available Not Available Lipitor 10 mg tablet Every night at bedtime active Frequenc y: qhs;Medi cation Descript ion: atorvast atin; Dosage:1 ; Route:or al; refills: 0; Quantity :30 tablet Not Available Not Available Not Available letrozole active Not Available Not Cherie ilable Not Available venlafaxi ne 11/29 completed Not Available Not Available Not Available lisinopri l active Not Available Not Available Not Available Xarelto 11/29 completed Not Available Not Available Not Available Vitals None Recorded Social History None recorded. Functional Status None recorded. Mental Status None recorded. Family History Nothing Reported. Medical History Condition Response Basal Cell Carcinoma Y Gynecological HistoryNo gynecological history recorded. Obstetrics History GPAL:G 0 P 0 0 0 0 Past Encounters Encounter ID Performer Location Encounter Start Date Encounter Closed Date Diagnosis/Indication Diagnosis SNOMED-CT Code Diagnosis ICD10 Code Diagnosis Note [id number] OUMAR MCWILLIAMS MD [facility] [address] [place] [address] 08/21/2016 10:03:48 08/21/2016 13:44:38 History of malignant basal cell neoplasm of skin 943777629 Z85.828 Status post BCC on anterior neck - doing well [place] 984980494 L81.4 reassuranc e Senile hyperkeratosis 39 6119069 L82.1 reassuranc e Inflamed s eborrheic keratosis 726032483 L82.0 LN x 5 [id number] MD JOSÉ MIGUEL [facility] [address] [place] [id number] 08/27/2017 10:03:20 08/27/2017 12:23:05 History of malignant basal cell neoplasm of skin 099129539 Z85.828 Status post BCC on anterior neck - doing well [place] 687466027 L81.4 reassuranc e Senile hyperkeratosis 39 0542651 L82.1 reassuranc e Hemangioma 817278513 D18 .00 Reassuranc e and education regarding the disorder and options. Actinic keratosis 182897 007 L57.0 Education, then cryodestru ction with liquid nitrogen (LN) x 2 [id number] MD JOSÉ MIGUEL [facility] [address] [place] [id number] 09/22/2018 10:12:27 09/22/2018 13:46:44 History of malignant basal cell neoplasm of skin 448047224 Z85.828 Status post BCC on anterior neck - doing well [place] 508168558 L81.4 Reassuranc e and education regarding the disorder and options. Senile hyperkeratosis 39 8511401 L82.1 Reassuranc e and education regarding the disorder and options. Blue nevus of skin 15191 6009 D23.9 Reassuranc e and education regarding the disorder and options. Hemangioma 456979726 D18 .00 Reassuranc e and education regarding the disorder and options. Inflamed s eborrheic keratosis 642793021 L82.0 LN x 3 [id number] MD JOSÉ MIGUEL [facility] [address] [place] [address] 11/17/2019 10:24:28 11/17/2019 11:09:47 History of malignant basal cell neoplasm of skin 675121614 Z85.828 Status post BCC on anterior neck - doing well [place] 848360705 L81.4 Reassuranc e Senile hyperkeratosis 39 6569270 L82.1 Reassuranc e Blue nevus of skin 19959 6009 D23.9 Reassuranc e Hemangioma 178675936 D18 .00 Reassuranc e Multiple s kin tags on neck 812129203 L91.8 reassuranc e [id number] OUMAR MCWILLIAMS MD [place] [address] [place] [address] 7 11/29/2020 10:16:37 11/29/2020 10:37:44 History of malignant basal cell neoplasm of skin 836764195 Z85.828 Status post BCC on anterior neck - doing well [place] 539615373 L81.4 Reassuranc e Recommende d Equate Ultra Sunscreen 30+ and sun protecting hats/cloth ing Senile hyperkeratosis 39 5271147 L82.1 Reassuranc e Blue nevus of skin 38936 6009 D23.9 Reassuranc e Hemangioma 042329275 D18 .00 Reassuranc e Multiple s kin tags on neck 597949563 L91.8 reassuranc e Inflamed s eborrheic keratosis 182823767 L82.0 LN x 4 [id number] OUMAR MCWILLIAMS MD [place] [address] [place] [address] 7 11/28/2021 10:29:56 11/28/2021 10:56:26 History of malignant basal cell neoplasm of skin 808633361 Z85.828 Status post BCC on anterior neck - doing well [place] 864975474 L81.4 Reassuranc e Recommende d Equate Ultra Sunscreen 30+ and sun protecting hats/cloth ing Senile hyperkeratosis 39 1176809 L82.1 Reassuranc e Blue nevus of skin 13982 6009 D23.9 Reassuranc e Hemangioma 152642357 D18 .00 Reassuranc e Multiple s kin tags on neck 878473048 L91.8 reassuranc e Inflamed s eborrheic keratosis 249816569 L82.0 LN x 3 Actinic keratosis 604498 007 L57.0 Education, then cryodestru ction with liquid nitrogen (LN) x 2 Health Concerns Section Related Observation LastModified by Organization Detai ls LastModified Time None Recorded Concern Status LastModified by Organization Details LastModified Time None Recorded Advance Directives Directive None Recorded Payers Insurance Date Sequence Insurance Name Policy Number Policy Townsend Covered Member ID Townsend Member ID Guarantor Name 11/25/2021 1 [facility] (MEDICARE REPLACEMENT/A DVANTAGE - PPO) [id number] Lizeth Gongramon [id number] Lizeth Woodall Notes Date Note Type Note Provider Name and Address Organization Details Recorded Time 08/27/2017 text/html Established Jazlyn ent - Recently diagnosed with Breast cancer - has had a lumpectomy and will start chemo soon followed by radiation Monitor BCC, AKs Denies any other new, changing, or bleeding lesions, or other rashes, feels well , and in a good mood. Has no family history of melanoma. OUMAR MCWILLIAMS MD [address] [place] [address], [phone], [facility] hospital 08/27/2017 11:49:22 09/22/2018 text/html Established Jazlyn ent - no new concerns Monitor BCC, AKs Denies any other new, changing, or bleeding lesions, or other rashes, feels well , and in a good mood. Has no family history of melanoma. OUMAR MCWILLIAMS MD [address] [place] [address] [place], [address], Critical access hospital 09/22/2018 12:41:31 11/17/2019 text/html Established Jazlyn ent - no new concerns pt dx with breast cancer 07/2017 Monitor BCC, AKs Denies any other new, changing, or bleeding lesions, or other rashes, feels well , and in a good mood. Has no family history of melanoma. OUMAR MCWILLIAMS MD [address] [place] [address] [place], [address], Critical access hospital 11/17/2019 13:00:51 11/29/2020 text/html Established Jazlyn ent - Monitor BCC, AKs LOCATION: LEFT EAR DURATION: X MONTHS SYMPTOMS: WAS RED AND CRUSTY 2 WEEKS AGO BUT NOW BETTER TREATMENTS: NONE no issues with scarring, or healing Patient is on ASA and Xarelto Denies any other new, changing, or bleeding lesions, or other rashes, feels well , and in a good mood. Has no family history of melanoma. OUMAR MCWILLIAMS MD [address] [place] [address], [phone], Critical access hospital 11/29/2020 11:28:54 11/28/2021 text/html Established Jazlyn ent - Monitor BCC, AKs LOCATION: right upper clavicleDURATION: X monthsSYMPTOMS: growingTREATMENTS: NONE between breast - rough growingLeft leg - very tender no issues with scarring, or healingPatient is on ASA and Xarelto Denies any other new, changing, or bleeding lesions, or other rashes, feels well , and in a good mood. Has no family history of melanoma. OUMAR MCWILLIAMS MD [address] [place], [address], Critical access hospital 11/28/2021 11:04:23 OBGyn Episode No OBEpisode recorded.
--- OUTSIDE RECORDS SUMMARY | 2024-12-21 10:04 | XMS_ITS | Clinical Summary ---
Author Organization [facility] Address [address] [place] [address] Care Team Providers Care Circulating Nurse Name Role Phone Davon Durand MD Primary Care Provider [phone] Jailene Keating NP Unavailable [phone] Srinivasa Beaulieu MD Unavailable [phone] Sharmin Mancilla Unavailable Unavailable Estefania Underwood Unavailable [phone] Ceci Lomeli NP Unavailable Unavailable Singh Davis MD Unavailable [phone] Annabel Ojeda RN Unavailable Chrissy Radford RN Unavailable Unavailable Akosua Moss MD Unavailable Guerline Stern NP Unavailable [phone] Waylon Penn MD Unavailable [phone] Vic Moss MD Unavailable Allergies Active Allergy Reactions Criticality Noted Date [...] by mouth in the morning. 1000iu daily. Active fexofenadine (YEFRI ALLERGY) 180 mg tablet Active multivitamin (THERAGRAN) Tablet Take 1 Tablet by mouth in the morning. Active losartan (COZAAR) 50 mg Tablet 2 [...] in the morning. Nutrafol hair vitamin . Active Active Problems Problem Noted Date Diagnosed Date Primary osteoarthritis of left knee 12/12/2023 Other constipation 01/16/2021 Senile osteoporosis 09/01/2020 History of breast cancer 10/23/2018 Uterovaginal prolapse, incomplete 06/24/2018 Uterine prolapse 06/18/2018 Overview (06/18/2018): Added automatically from request for surgery [id number] Screening for osteoporosis 05/19/2018 Pneumonitis 10/20/2017 Malignant neoplasm of right female breast ([facility]) 07/18/2017 Cancer Staging:Pathologic stage from 07/30/2017:Stage IA(pT1c, pN1mi(sn), cM0, G2, ER: Positive, NJ: Positive, HER2: Negative, Oncotype DX score: 21) - Signed by Akosua Moss MD on 07/30/2017 Primary osteoarthritis involving multiple joints 12/05/2015 Hyperlipidemia 12/05/2015 Primary osteoarthritis of right knee 12/01/2015 Superficial thrombosis of leg, right Resolved Problems Problem Noted Date Diagnosed Date Resolved Date Generalized abdominal pain 01/16/2021 0 10/02/2021 Encounters Date Type Department Care Team Description 11/27/2024 9:26 AM EDT - 11/27/2024 11:59 PM EDT Hospital Encounter [facility] [place] [address] [facility] [address] Senile osteoporosis (Primary Dx) Discharge Disposition: Home or Self Care 11/27/2024 9:25 AM EDT Hospital Encounter [facility] [place] [address] [facility] [address] Srinivasa Beaulieu MD Senile osteoporosis (Primary Dx); History of breast cancer Discharge Disposition: Home or Self Care from Last 3 Months Family History Medical History Relation Name Comments [...] Mass Index 29.2 11/27/2024 11:08 AM EDT Plan of Treatment Upcoming Encounters Date Type Department Care Team (Late st Contact Info) Description 05/06/2025 12:30 PM EST Appointment [facility] Medical Office Building, [address] [place] [address] 05/06/2025 1:30 PM EST Appointment [facility] Physicians - Surgical Oncology, [address] [place] [id number] Akosua Moss MD [address] [place] [address] 05/28/2025 12:15 PM EST Appointment [facility] [address] [place] [address] Srinivasa Beaulieu MD [address] [place] [address] 05/28/2025 12:30 PM EST Appointment [facility] [address] [place] [address] [place] [address] Health Maintenance Due Date Last Done Comments [...] Counseling 06/17/2024 Depression Screening 06/17/2024 Influenza Vaccination (#1) 2025 Osteoporosis Screening 08/13/2028 4, 08/29/2020, 08/29/2020, Additional history exists Medical Devices Implanted Type Area Hog Cutter Device Identifier Shelf Expiration Date Model / Serial / Lot Cement Bone Simplex Tobramycin Implanted:Qty : 2 on 12/05/2015 by Desmond Jeronimo MD at [facility] Right: Knee * OMEGA 12/14/2016 [id number] / / [id number] Lateral Insert-A Implanted:Qty : 1 on 12/05/2015 by Desmond Jeronimo MD at [facility] Right: Knee 05/16/2016 [id number] / [id number] / Itotal Femoral Implant Implanted:Qty : 1 on 12/05/2015 by Desmond Jeronimo MD at [facility] Right: Knee 05/16/2016 [id number] / [id number] / Itotal -Ipoly-32mmx6 mm Patella Implant Implanted:Qty : 1 on 12/05/2015 by Desmond Jeronimo MD at [facility] Right: Knee 07/17/2016 [id number] / / [id number] Medial Insert 6mm Implanted:Qty : 1 on 12/05/2015 by Desmond Jeronimo MD at [facility] Right: Knee 05/16/2016 [id number] 6MI / [id number] / Slng Sgl Incis Altis Implanted:Qty : 1 on 06/24/2018 by Waylon Penn MD at [facility] 8 OR Suburetheral * COLOPLAST 03/03/2021 [id number] / / [id number] Attune Tibial Insert Rotat Platform Ps Size 5 ,5mm Aox - [id number] Implanted:Qty : 1 on 01/27/2024 by Natanael Pelayo MD at [facility] Left: Knee * J \T\ J DEPUY [id number] 12/14/2028 [facility] [id number] / / [id number] Attune Patella Medialized Dome - [id number] Implanted:Qty : 1 on 01/27/2024 by Natanael Pelayo MD at [facility] Left: Knee BREA \T\ [employer] [id number] 09/15/2031 [id number] / / [id number] Attune Rp With Dome - [id number] Implanted:Qty : 1 on 01/27/2024 by Natanael Pelayo MD at [facility] Left: Knee BREA \T\ [employer] [id number] / / Cement Bone Simplex Gentamici - [id number] Implanted:Qty : 1 on 01/27/2024 by Natanael Pelayo MD at [facility] Left: Knee [employer] [id number] 03/16/2025 [id number] / / [id number] Attune Knee System Tibial Base Rotating Platform Sz-4 Cemented - [id number] Implanted:Qty : 1 on 01/27/2024 by Natanael Pelayo MD at [facility] Left: Knee * J \T\ J DEPUY [id number] 10/14/2033 150 [id number] / / [id number] Attune Femoral P/S Narrow Size 5n Left Paco - [id number] Implanted:Qty : 1 on 01/27/2024 by Natanael Pelayo MD at [facility] Left: Knee * J \T\ J DEPUY [id number] 09/14/2033 150 [id number] / / [id number] Procedures Procedure Name Priority Date/Time Associated Diagnosis Comments VITAMIN D 25 HYDROXY TOTAL Routine 11/27/2024 11:22 AM EDT DIFFERENTIAL STAT 11/27/2024 7:32 AM EDT CA27.29 Fax/Notify 11/27/2024 7:32 AM EDT History of breast cancer COMPREHENSIVE METABOLIC PANEL STAT 11/27/2024 7:32 AM EDT History of breast cancer CBC WITH DIFFERENTIAL STAT 11/27/2024 7:32 AM EDT History of breast cancer PHOSPHORUS STAT 11/27/2024 7:32 AM EDT Senile osteoporosis DXA-DEXA SCAN AXIAL SKELETON Routine 08/13/2023 1:11 PM EST Osteoporosis, unspecified osteoporosis type, unspecified pathological fracture presence from Last 3 Months or Most Recently Relevant to Health Maintenance Results * VITAMIN D 25 HYDROXY TOTAL (11/27/2024 11:22 AM EDT) Vit D, 25-Hydroxy 72 30 - 80 ng/mL [facility] Comment: Therapy is based on measurement of Total 25-OHD, with levels <20 ng/mL indicative of Vitamin D deficiency, while levels between 20 ng/mL and 30 ng/mL suggest insufficiency. Sufficient levels are >or = 30 ng/mL. Plasma 11/27/2024 11:2 2 AM EDT 11/27/2024 11:36 AM EDT us Srinivasa Beaulieu MD CHEMISTRY ORDERABLES Final Res ult [facility] [address] * DIFFERENTIAL (11/27/2024 7:32 AM EDT) Neutrophils Absolute 4.45 1.50 - 7.80 10*3/uL [...] EXTERNAL LAB nRBC 0 /100 WBC [facility] TIRE MOLD ENGRA[facility] Whole Blood 11/27/2024 7:32 AM EDT 11/27/2024 11:36 AM EDT Srinivasa Beaulieu MD HEMATOLOGY ORDERABLES Final Re sult Performing Organization Address [facility] Co de Phone Number [facility] [address] * CBC WITH DIFFERENTIAL (11/27/2024 7:32 AM EDT) WBC 7.15 4.00 - 12.00 10*3/uL [facility] RBC 4.08 3.80 - 5.10 10*6/uL [facility] Hemoglobin 12.8 11.7 - 15.5 g/dL [facility] Hematocrit Blood 38.3 35.0 - 46.0 % [facility] MCV 93.9 80.0 - 100.0 fL [facility] MCH 31.4 27.0 - 33.0 pg [facility] MCHC 33.4 30.0 - 36.0 g/dL [facility] RDW 12.5 11.0 - 15.0 % [facility] Platelets 236 140 - 400 10*3/uL [facility] MPV 10.3 9.0 - 13.0 fL [facility] Whole Blood 11/27/2024 7:32 AM EDT 11/27/2024 11:35 AM EDT Srinivasa Beaulieu MD HEMATOLOGY ORDERABLES Final Re sult Performing Organization Address [facility] Co de Phone Number [facility] [address] * PHOSPHORUS (11/27/2024 7:32 AM EDT) Phosphorus 3.9 2.1 - 4.3 mg/dL [facility] Serum 11/27/2024 7:32 AM EDT 11/27/2024 11:35 AM EDT Srinivasa Beaulieu MD CHEMISTRY ORDERABLES Final Res ult Performing Organization Address [facility] Co de Phone Number [facility] [address] [place] [id number] * COMPREHENSIVE METABOLIC PANEL (11/27/2024 7:32 AM EDT) Sodium 137 135 - 146 mmol/L TC [...] LAB Glucose 95 71 - 99 mg/dL [facility] Comment:Reference range (71- 99 mg/dL) refers only to fasting samples, and does not apply to non-fasting samples. eGFR CKD-EPI 2020 80 See Note [facility] Comment: eGFR [...] LAB Albumin/Globulin Ratio 1.3 1.0 - 2.1 [facility] BUN/Creatinine Ratio 17 [facility] Plasma 11/27/2024 7:32 AM EDT 11/27/2024 11:35 AM EDT us Srinivasa Beaulieu MD CHEMISTRY ORDERABLES Final Res ult [facility] [address] * CA27.29 (11/27/2024 7:32 AM EDT) CA 27-29 35.9 0.0 - 38.6 U/mL [facility] Comment: Siemens Cinemagramaur Immunochemiluminometric Methodology (ICMA) Values obtained with different assay methods or kits cannot be used interchangeably. Results cannot be interpreted as absolute evidence of the presence or absence of malignant disease. Performed at: [facility] [address] [id number] Gis Manager: Timmy Carrion PhD, Phone: [phone] Serum 11/27/2024 7:32 AM EDT 11/28/2024 7:06 AM EDT us Srinivasa Beaulieu MD CHEMISTRY ORDERABLES Final Res ult Performing Organization Address [facility] Co de Phone Number [facility] [address] * ROBINA-DEXA SCAN AXIAL SKELETON (08/13/2023 1:11 [...] osteoporosis. Signed By: Mariusz Galaviz MD Kerry [employer]. [employer] DESIGN ENGINEERING INTERN IMG DEXA ORDERABLES Final Res ult from Last 3 Months or Most Recently Relevant to Health Maintenance Insurance [address] UHC MEDICARE [address] MEDICARE Constance BRAD[address] MEDICARE Advance Directives For more information, please contact: [phone] Documents on File Type Date Recorded Patient Flooring Mechanic Expl anation Advance Directives and Living Will [...] 11:19 AM 12/06/2015 8:06 PM Care Teams Circulating Nurse Relationship Specialty Start Date End Date Davon Durand MD PCP - General Family Medicine 08/30/15 Jailene Keating NP [address] [place] [address] Registered Nurse 03/04/18 Srinivasa Beaulieu MD [address] [place] [address] Hematology and Oncology 05/19/18 Sharmin Mancilla Cloth Reeler Social Work 10/29/18 Estefania Underwood PA [address] [place] [address] Surgical Oncology 08/26/20 Ceci Lomeli NP [address] [place] [address] Nurse Practitioner Nurse Practitioner, Family 09/01/20 Singh Davis MD [address] [place] [address] General Surgery 01/12/21 Annabel Ojeda RN [address] [place] [address] Registered Nurse 01/16/21 Chrissy Radford RN Registered Nurse 07/11/21 Akosua Moss MD [address] [place] [address] Surgical Oncology 10/12/21 [place] [address] [place] [address] Nurse Practitioner Nurse Practitioner, Family 04/20/22 Waylon Penn MD [address] [facility] [place] [address] Female Pelvic Medicine and Reconstructive Surgery 06/24/22 [place] [address] [place] [address] Otolaryngology 12/05/22
--- OUTSIDE RECORDS SUMMARY | 2024-12-21 10:04 | XMS_ITS ---
Author Organization [facility] Address [address] [place] [address] Care Team Providers Care Price Changer Name Role Phone Davon Durand MD Primary Care Provider [phone] Jailene Keating NP Unavailable Srinivasa Beaulieu MD Unavailable [phone] Sharmin Mancilla Unavailable Unavailable Estefania Underwood Unavailable [phone] Ceci Lomeli NP Unavailable Unavailable Singh Davis MD Unavailable [phone] Annabel Ojeda RN Unavailable Chrissy Radford RN Unavailable Unavailable Akosua Moss MD Unavailable [phone] Guerline Stern NP Unavailable [phone] Waylon Penn MD Unavailable [phone] Vic Moss MD Unavailable [phone] Active Problems Problem Noted Date Diagnosed Date Primary osteoarthritis of left knee 12/12/2023 Other constipation 01/16/2021 Senile osteoporosis 09/01/2020 History of breast cancer 10/23/2018 Uterovaginal prolapse, incomplete 06/24/2018 Uterine prolapse 06/18/2018 Overview (06/18/2018): Added automatically from request for surgery [id number] Screening for osteoporosis 05/19/2018 Pneumonitis 10/20/2017 Malignant neoplasm of right female breast ([facility]) 07/18/2017 Cancer Staging:Pathologic stage from [...] Senile osteoporosis Treatment Medications Current Day (Day 1, Cycle 10 - Planned for 05/28/2025) No medications scheduled. No medications schedul ed. Past Treatment and Therapy Plans ONCOLOGY TREATMENT Plan Name Start Date Discontinue Date Treatment Medications Discontinue Reason Plan Provider Cycles TC REGIMEN: TAXOTERE /CYCLOPH OSPHAMID E Q21d X 4cycles 8 11/01/2017 cycloPHOSphamide (CYTOXAN) chemo infusionDOCEtaxel (TAXOTERE) EVERY 3 WEEK chemo infusion Not Tolerated Srinivasa Beaulieu MD 3 of 4 cycles started Resolved Problems Problem Noted Date Diagnosed Date Resolved Date Generalized abdominal pain 01/16/2021 0 10/02/2021
--- OUTSIDE RECORDS SUMMARY | 2024-12-21 10:04 | XMS_ITS | Clinical Summary ---
Author Organization [facility] Address [address] [facility] [place] [address] Phone Care Team Providers Care Post Form Remover Name Role Phone Davon Durand MD Primary Care Provider [phone] Allergies Active Allergy Reactions Criticality Noted Date [...] by mouth as needed for Pain. Active [id number] cwl-OuVs-NNe-as b-C (PLENVU) 140-9-5.2 gram Oral Powder in [...] (07/25/2022): Added automatically from request for surgery [id number] Pneumonitis 10/20/2017 Breast cancer 06/18/2017 Overview (07/01/2017): right IDC ER 96% LA 12 % HER2 negative Hyperlipidemia 12/05/2015 Primary osteoarthritis involving multiple joints 12/05/2015 Pre-operative cardiovascular examination 016 Neoplasm of uncertain behavior of skin 6 Surgical History Surgery Date Site/Laterality Comments TOTAL KNEE ARTHROPLASTY Right BREAST BIOPSY 06/18/2017 Right COLONOSCOPY Medical History Medical History Date Comments Breast cancer (HCC) 06/18/2017 right IDC ER 96% LA 12 % HER2 negative GERD (gastroesophageal reflu [...] season) 2024 04/19/2021, 07/25/2020, 06/29/2020 Influenza Vaccine (#1) 2025 , 03/30/2021, 02/19/2020, Additional history exists Pneumococcal Vaccine [...] EST) 07/25/2022 12:4 0 PM EST Impressions [facility] - 07/25/2022 1:16 PM EST [...] ORDERABLES Fin al Result Performing Organization Address City/State/[facility] Co de Phone Number [facility] [address] [place] [address] * DX BONE DENSITY AXIAL SKELETON (06/05/2017 9:46 AM EST) Anatomical Region Laterality Modality Dexa Scan 06/05/2017 Addenda Addendum by Taty Chacko MD on 04/21/2018 4:28 PM EST Bone Density Report Name: Lizeth Woodall Age: 72 Sex: Female Ethnicity: White Date of : 1945 Indication: This bone density report has been reanalyzed as the result of a dermatologist change in equipment calibration. Referring Physician: Hugo Rucker Study was performed on [employer] LUND 5. Exam Date: June 05, 2017 Accession number: [id number] Bone Density: Region BMD T-score Z-score AP [...] bone density assessment. Study was performed on [employer] APEX 5. Bone Density: Region BMD T-score [...] Lopez PA-C, CCD on 06/05/2017 11:25:00 AM. [facility] Gianni Rucker [facility] DEXA ORDERABLES Edited Resu lt - Final from Last 3 Months or Most Recently Relevant to Health Maintenance Insurance [employer] MEDICARE PPO MR Care Teams Post Form Remover Relationship Specialty Start Date End Date Davon Durand MD PCP - General 04/12/10
--- OUTSIDE RECORDS SUMMARY | 2024-12-21 10:04 | XMS_ITS | Encounter Summary ---
Author Organization [facility] Address [address] [place] [address] Care Team Providers Care Integrated Logistics Operations Manager Name Role Phone Davon Durand MD Primary Care Provider [phone] Jailene Keating NP Unavailable [phone] Srinivasa Beaulieu MD Unavailable [phone] Sharmin Mancilla Unavailable Unavailable Estefania Underwood Unavailable [phone] Ceci Lomeli NP Unavailable Unavailable Singh Davis MD Unavailable [phone] Annabel Ojeda RN Unavailable [phone] Chrissy Radford RN Unavailable Unavailable Akosua Moss MD Unavailable [phone] Guerline Stern NP Unavailable [phone] Waylon Penn MD Unavailable [phone] Vic Moss MD Unavailable [phone] Reason for Referral * PT/OT/ST (Routine) - Not Needed Specialty Diagnoses / Procedures Referred By Contac t Referred To Contact Physical Therapy Diagnoses Primary osteoarthritis of left knee Natanael Pelayo MD [address] [place] [address] Phone: tel: fax: [facility], [address] 1955 Formerly Named [facility] [address] [place] [address] Phone: tel: fax: Referral ID Status Reason Start Date Expiration Date V isits Requested Visits Authorized [id number] Not Needed 12/20/2023 12/19/2024 26 26 Encounter Details Date Type Department Care Team (Latest Contact Info) Description 12/12/2023 Preop Surgical Orders [facility] Physicians - Orthopaedics & Sports Medicine, [place] [address] [place] [address] Natanael Pelayo MD [address] [place] [address] Primary osteoarthritis of left knee (Primary Dx) [...] 05/06/2025 12:30 PM EST Appointment [facility] Medical Office Building, [address] [place] [address] 05/06/2025 1:30 PM EST Appointment [facility] Physicians - Surgical Oncology, [address] [place] [address] Akosua Moss MD [address] [facility] [address] [place] [address] 05/28/2025 12:15 PM EST Appointment [facility] [address] [place] [address] [place] [address] Srinivasa Beaulieu MD [address] [place] [address] 05/28/2025 12:30 PM EST Appointment [address] [place] [address] Scheduled Referrals Name Type Priority Associated Diagnoses [...] ORDERABLES Final Re sult Performing Organization Address [facility] de Phone Number [facility] [address] * (ABNORMAL) HGB, A1C (GLYCOHEMOGLOBIN) (01/06/2024 9:53 AM EDT) Pathologist [facility] Hgb A1C 6.0(H) 4.0 - 5.6 % [facility] Comment: Reference Ranges for Hgb [...] Glycohemoglobin Standardization program (NGSP) and traceable to [facility]. Estimated Average Glucose 126(H) 68 - 114 mg/dL [facility] Whole Blood 01/06/2024 9:53 AM EDT 01/06/2024 4:25 PM EDT Natanael Pelayo MD CHEMISTRY ORDERABLES Final Re sult Performing Organization Address [facility] de Phone Number [facility] [address] * (ABNORMAL) BASIC METABOLIC PANEL (BMP=EP1) (01/06/2024 9:53 AM EDT) Pathologist [facility] Sodium 139 135 - 146 mmol/L [facility] Potassium 4.1 3.5 - 5.1 mmol/L [facility] Chloride 106 98 - 110 mmol/L [facility] CO2 25 22 - 29 mmol/L [facility] Anion Gap 8 5 - 13 mmol/L [facility] Comment:Anion gap calculatio n does [...] mL/min/1.73m2. Calcium 9.2 8.5 - 10.5 mg/dL [facility] Comment:Effective 10/18/2022, the calcium reference range has been updated. BUN/Creatinine Ratio 14 [facility] Serum 01/06/2024 9:53 AM EDT 01/06/2024 3:38 PM EDT us Natanael Pelayo MD CHEMISTRY ORDERABLES Final Re sult [facility] [address] * CBC (COMPLETE BLOOD COUNT) (01/06/2024 9:53 AM EDT) WBC 6.20 3.80 - 10.80 10*3/uL [facility] RBC 4.20 3.80 - 5.10 10*6/uL [facility] Hemoglobin 13.3 11.7 - 15.5 g/dL [facility] Hematocrit Blood 40.2 35.0 - 46.0 % [facility] MCV 95.7 80.0 - 100.0 fL [facility] MCH 31.7 27.0 - 33.0 pg [facility] MCHC 33.1 30.0 - 36.0 g/dL [facility] RDW 13.6 11.0 - 15.0 % [facility] Platelets 254 140 - 400 10*3/uL [facility] MPV 11.3 9.0 - 13.0 fL [facility] Whole Blood 01/06/2024 9:53 AM EDT 01/06/2024 4:25 PM EDT us Natanael Pelayo MD HEMATOLOGY ORDERABLES Final R esult [facility] [address] documented in this encounter Visit Diagnoses Diagnosis Primary osteoarthritis of left knee- Primary Primary localized osteoarthrosis, lower leg documented in this encounter Care Teams Integrated Logistics Operations Manager Relationship Specialty Start Date End Date Daovn Durand MD PCP - General Family Medicine 08/30/15 Jailene Keating NP [address] [place] [address] Registered Nurse 03/04/18 Srinivasa Beaulieu MD [address] [place] [address] Hematology and Oncology 05/19/18 Sharmin Mancilla Habilitation Worker Social Work 10/29/18 Estefania Underwood PA [address] [place] [address] Surgical Oncology 08/26/20 Ceci Lomeli NP [address] [place] [address] Nurse Practitioner Nurse Practitioner, Family 09/01/20 Singh Davis MD [address] [place] [address] General Surgery 01/12/21 Annabel Ojeda RN [address] [place] [id number] Registered Nurse 01/16/21 Chrissy Radford, RN Registered Nurse 07/11/21 Akosua Moss MD [address] [place] [address] Surgical Oncology 10/12/21 [place] [address] [place] [address] Nurse Practitioner Nurse Practitioner, Family 04/20/22 Waylon Penn MD [address] [facility] [place] [address] Female Pelvic Medicine and Reconstructive Surgery 06/24/22 [place] [address] [place] [address] Otolaryngology 12/05/22 documented as of this encounter
== END 2024-12-17 23:59 | disposition home or self-care (01) ==
LOC: LAB.DROPOF 12-21 09:53
PROVIDERS: PCP Family Medicine; Visit Provider Family Medicine
DX: Z11.59 Encounter for screening for other viral diseases (principal); I10 Essential (primary) hypertension; I82.501 Chronic embolism and thrombosis of unspecified deep veins of right lower extremity
CPT/HCPCS: 80053; 80061; 84443; 85025; 86803; 87389

== ENCOUNTER 2024-12-31 14:41 | Outpatient (CLI) | payer MEDICARE, SELFPAY ==
--- OUTSIDE RECORDS SUMMARY | 2024-11-27 09:25 | XMS_ITS | Encounter Summary ---
Author Organization [facility] Address [address] [place] [address] Care Team Providers Care Theatrical Scenic Designer Name Role Phone Davon Durand MD Primary Care Provider [phone] Jailene Keating NP Unavailable [phone] Srinivasa Beaulieu MD Unavailable [phone] Sharmin Mancilla Unavailable Unavailable Estefania Underwood Unavailable [phone] Ceci Lomeli NP Unavailable Unavailable Singh Davis MD Unavailable [phone] Annabel Ojeda RN Unavailable [phone] Chrissy Radford RN Unavailable Unavailable Akosua Moss MD Unavailable [phone] Guerline Stern NP Unavailable [phone] Waylon Penn MD Unavailable [phone] Vic Moss MD Unavailable [phone] Reason for Visit * Treatment and Therapy Plans (Routine) - Authorized Specialty Diagnoses / Procedures Referred By Contac t Referred To Contact Diagnoses Senile osteoporosis Srinivasa Beaulieu MD [address] [place] [address] Phone: tel: fax: [facility] [place] [address] [place] [address] Phone: tel: Referral ID Status Reason Start Date Expiration Date V isits Requested Visits Authorized [id number] Authorized 09/01/2020 10/27/2025 1 1008 Encounter Details Date Type Department Care Team (Latest Contact Info) Description 11/27/2024 9:25 AM EDT Hospital Encounter [facility] [place] [address] [place] [address] Srinivasa Beaulieu MD [address] [place] [address] Senile osteoporosis (Primary Dx); History of breast cancer Discharge Disposition: Home or Self Care Social History Tobacco Use Types Packs/Day Years [...] on file documented as of this encounter Last Filed Vital Signs Vital Sign Reading Time Taken Comments Blood Pressure 129/69 11/27/2024 11:08 AM EDT Pulse 67 11/27/2024 11:08 AM EDT Temperature 36.7 C (98.1 F) 11/27/2024 11:08 AM EDT Respiratory Rate 18 11/27/2024 11:08 AM EDT Oxygen Saturation 100% 11/27/2024 11:08 AM EDT Inhaled Oxygen Concentration - - Weight 70.1 kg (154 lb 8.7 oz) 11/27/2024 11:08 AM EDT Height 154.9 cm (5' 1 ) 11/27/2024 11:08 AM EDT Body Mass Index 29.2 11/27/2024 11:08 AM EDT documented in this encounter Functional Status * Are you blind or do you have difficulty seeing, even when wearing glasses? Answer Date of Assessment Author No 10/20/2017 3:43 PM Magdy Duffy RN * Do you have serious difficulty walking or climbing stairs? Answer Date of Assessment Author No 10/20/2017 3:43 PM Magdy Duffy RN * Do you have difficulty dressing [...] Magdy Duffy RN documented in this encounter Medications at Time of Discharge apixaban (Eliquis DVT-PE Treat 30D Start) 5 mg (74 tabs) starter pack Take two tablets in the morning and two at night for seven days, then take one tablet twice daily. 74 Tablet 03/22/2024 aspirin 81 mg Tablet, Delayed Release (E.C.) Take 81 mg by mouth every other day. atorvastatin (LIPITOR) 10 mg Tablet Take 10 mg by mouth nightly at bedtime. Denosumab (Prolia) 60 mg/mL Syringe 60 mg by Subcutaneous route every 6 months. Due 05/2024 doxycycline (VIBRAMYCIN) 100 mg capsule Take 1 Capsule (100 mg) by mouth 2 times daily. 20 Capsule 03/22/2024 ERGOCALCIFEROL, VITAMIN D2, (VITAMIN D PO) Take 1 Tablet by mouth in the morning. 1000iu daily. fexofenadine (YEFRI ALLERGY) 180 mg tablet losartan (COZAAR) 50 mg Tablet 10/03/2021 multivitamin (THERAGRAN) Tablet Take 1 Tablet by mouth in the morning. OTHER - SEE EPIC ADMIN INSTRUCTIONS Take 4 Tablets by mouth in the morning. Nutrafol hair vitamin . documented as of this encounter Progress Notes * Srinivasa Beaulieu MD - 11/27/2024 12:00 PM EDT [facility] ONCOLOGY FOLLOW-UP PROGRESS NOTE Patient ID: Lizeth Woodall Age: 79 y.o. (: 1945) Subjective Chief Complaint Follow Up breast cancer, osteoporosis Interval History Is going to have a left knee replacement Off AI's BCI with NO predictive benefit beyond 5 years 3.7% distant recurrence No fever no chills Hair thinning No dental concerns Review of symptoms were reviewed and otherwise negative unless addressed in the history of present illness. Current Treatment: [No matching plan found] observation PRIOR TREATMENTS: 1. Lumpectomy with sentinel lymph node. 2. Adjuvant Taxotere/Cytoxan. 3. Radiation therapy. 4. Endocrine therapy Initially started on Arimidex, discontinued due to joint issues. Switched to tamoxifen, discontinued due to superficial deep venous thrombosis, right lower extremity. Oncology Problems No diagnosis found. Oncology History Heme/Onc History No history exists. Medications Current Outpatient Medications on File Prior to Encounter Medication Sig Dispense Refill apixaban (Eliquis DVT-PE Treat 30D Start) 5 mg (74 tabs) starter pack Take two tablets in the morning and two at night for seven days, then take one tablet twice daily. 74 Tablet 0 aspirin 81 mg Tablet, Delayed Release (E.C.) Take 81 mg by mouth every other day. atorvastatin (LIPITOR) 10 mg Tablet Take 10 mg by mouth nightly at bedtime. Denosumab (Prolia) 60 mg/mL Syringe 60 mg by Subcutaneous route every 6 months. Due 05/2024 doxycycline (VIBRAMYCIN) 100 mg capsule Take 1 Capsule (100 mg) by mouth 2 times daily. 20 Capsule 0 ERGOCALCIFEROL, VITAMIN D2, (VITAMIN D PO) Take 1 Tablet by mouth daily. 1000iu daily fexofenadine (YEFRI ALLERGY) 180 mg tablet daily losartan (COZAAR) 50 mg Tablet multivitamin (THERAGRAN) Tablet Take 1 Tab by mouth daily. OTHER - SEE EPIC ADMIN INSTRUCTIONS Take 4 Tablets by mouth daily. Nutrafol hair vitamin No current facility-administered medications on file prior to encounter. Allergies Allergen Reactions Adhesive Tape-Silicones Rash Paper tape and tegaderm okay Ciprofloxacin Other (See Comments) Heart racing and head pressure Adhesive Rash Paper tape and tegaderm okay Objective Vital Signs LMP (LMP Unknown) Physical Exam Physical Exam Vitals reviewed. Constitutional: Appearance: Normal appearance. Eyes: Extraocular Movements: Extraocular movements intact. Cardiovascular: Rate and Rhythm: Normal rate and regular rhythm. Heart sounds: Normal heart sounds. Pulmonary: Breath sounds: Normal breath sounds. Chest: Breasts: Right: Skin change present. Left: Normal. Comments: Right breast lump and RT changes Abdominal: General: Bowel sounds are normal. Palpations: Abdomen is soft. Musculoskeletal: General: Normal range of motion. Cervical back: Normal range of motion and neck supple. Lymphadenopathy: Upper Body: Right upper body: No supraclavicular, axillary or pectoral adenopathy. Left upper body: No supraclavicular, axillary or pectoral adenopathy. Skin: General: Skin is warm and dry. Neurological: General: No focal deficit present. Mental Status: She is alert and oriented to person, place, and time. Psychiatric: Mood and Affect: Mood normal. Behavior: Behavior normal. Thought Content: Thought content normal. Judgment: Judgment normal. ECOG: ECOG Performance Status: Grade 0: Fully active, able to carry on all pre- disease performance without restriction. Laboratory, Pathology and Diagnostic Data Pathology: 1. 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 2. 07/03/2017 - Oncotype DX specimen ID [id number]: Recurrence result score 21. A 10 year risk of distant recurrence with tamoxifen alone 13%. 3. 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 Tumor size 17 mm in greatest dimension. Lab Results Component Value Date AA9867 28.4 11/29/2023 VITD25 81 (HIGH) 11/30/2022 WBC 5.90 03/22/2024 HGB 12.2 03/22/2024 HCT 36.8 03/22/2024 MCV 95.8 03/22/2024 PLT 298 03/22/2024 NEUTOPHILPCT 49.0 03/22/2024 LYMPHOPCT 31.4 03/22/2024 MONOPCT 13.1 03/22/2024 EOSPCT 5.6 03/22/2024 BASOPCT 0.7 03/22/2024 NEUTROABS 2.90 03/22/2024 LYMPHSABS 1.85 03/22/2024 MONOSABS 0.77 03/22/2024 EOSABS 0.33 03/22/2024 BASOSABS 0.04 03/22/2024 Imaging: MAMM-ULTRASOUND BREAST LIMITED(FOCUS AREA) 05/08/2024 [id number] Final MAMM-SCREENING W/MIGUEL 04/27/2024 [id number] Final VASCI-CECILIO DUPLEX LE LTD RT 03/23/2024 [id number] Final DIAG-KNEE 3-VIEWS LT 03/10/2024 Final DXA-DEXA SCAN AXIAL SKELETON 08/13/2023 [id number] Final I have reviewed and personally interpreted the most recent labs, pathology, and imaging in [facility] Everywhere. Assessment Assessment & Plan No signs of recurrence of breast cancer Next mammo in February Nothing palpable bilaterally BCI No 3.7% Finished femara 5 y Weight bearing exercise, ca++ and vit d Due for prolia, no dental concerns proceed today Discussed NCCN guidelines All questions answered Follow CBC CMP ca27-29 We will see her in 6 months * Lisa Wan RN - 11/27/2024 12:00 PM EDT [facility] New Patient [facility] New Patient [facility] Clinical Preparation Activities [facility] Visit Actions - Flow Rows [facility] Staff Services - Flow Rows [facility] Additional Services - Flow Rows [facility] Referral Orders FCC Tests Ordered [facility] BCN Education Documented FCC BCN Drainage LDA [facility] Discharge Instructions 0 0 13 0 0 0 0 3 0 0 0 Total Score: 16 Patient Currently in Pain (Verbal & Non-Verbal): Denies Have you fallen since your last visit?: No Do you feel safe in your home:: Yes Vitals Temp: 98.1 ??F (36.7 ??C) Temp Source: Oral Heart Rate: 67 Respirations: 18 Blood Pressure (cuff): 129/69 SpO2: 100 % 1. Wish to be : No Types of Tests Ordered: Lab (CBC, BMP, etc) Orders Placed This Encounter Procedures Phosphorus CBC with differential Comprehensive metabolic panel Ca27.29 Vitamin D 25 Hydroxy Total Differential documented in this encounter Plan of Treatment Upcoming Encounters Date Type Department Care Team (Late st Contact Info) Description 05/06/2025 12:30 PM EST Appointment [facility] Medical Office Building, [address] [place] [address] 05/06/2025 1:30 PM EST Appointment [facility] - Surgical Oncology, [address] [place] [id number] Akosua Moss MD [address] [facility] [address] [place] [address] 05/28/2025 12:15 PM EST Appointment [facility] [address] [place] [address] Srinivasa Beaulieu MD [address] [place] [address] 05/28/2025 12:30 PM EST Appointment The [address] [place] [address] documented as of this encounter Procedures Procedure Name Priority Date/Time Associated Diagnosis Comments VITAMIN D 25 HYDROXY TOTAL Routine 11/27/2024 11:22 AM EDT DIFFERENTIAL STAT 11/27/2024 7:32 AM EDT CBC WITH DIFFERENTIAL STAT 11/27/2024 7:32 AM EDT History of breast cancer PHOSPHORUS STAT 11/27/2024 7:32 AM EDT Senile osteoporosis COMPREHENSIVE METABOLIC PANEL STAT 11/27/2024 7:32 AM EDT History of breast cancer CA27.29 Fax/Notify 11/27/2024 7:32 AM EDT History of breast cancer documented in this encounter Results * VITAMIN D 25 HYDROXY TOTAL (11/27/2024 11:22 AM EDT) Pathologist [facility] Vit D, 25-Hydroxy 72 30 - 80 ng/mL [facility] Comment: Therapy is based on measurement of Total 25-OHD, with levels <20 ng/mL indicative of Vitamin D deficiency, while levels between 20 ng/mL and 30 ng/mL suggest insufficiency. Sufficient levels are >or = 30 ng/mL. Plasma 11/27/2024 11:2 2 AM EDT 11/27/2024 11:36 AM EDT Srinivasa Beaulieu MD CHEMISTRY ORDERABLES Final Res ult [facility] [address] * DIFFERENTIAL (11/27/2024 7:32 AM EDT) [facility] Neutrophils Absolute 4.45 1.50 - 7.80 10*3/uL [facility] Lymphocytes Absolute 1.80 0.80 - 3.90 10*3/uL [facility] Monocytes Absolute 0.68 0.20 - 0.90 10*3/uL [facility] Eosinophils Absolute 0.15 0.00 - 0.50 10*3/uL [facility] Basophils Absolute 0.05 0.00 - 0.20 10*3/uL [facility] Immature Granulocytes Absolute 0.02 0.00 - 0.10 10*3/uL [facility] Neutrophils Relative 62.2 % [facility] Lymphocytes Relative 25.2 % [facility] Monocytes Relative 9.5 % [facility] Eosinophils Relative 2.1 % [facility] Basophils Relative 0.7 % [facility] Immature Granulocytes 0.3 % [facility] nRBC 0 /100 WBC [facility] DIRECTOR OF STUDENT SERVICES [facility] Whole Blood 11/27/2024 7:32 AM EDT 11/27/2024 11:36 AM EDT Srinivasa Beaulieu MD HEMATOLOGY ORDERABLES Final Re sult Performing Organization Address [facility] de Phone Number [facility] [address] * CA27.29 (11/27/2024 7:32 AM EDT) [facility] CA 27-29 35.9 0.0 - 38.6 U/mL [facility] Comment: [email or web address] [email or web address] Immunochemiluminometric Methodology (ICMA) Values obtained with different assay methods or kits cannot be used interchangeably. Results cannot be interpreted as absolute evidence of the presence or absence of malignant disease. Performed at: [address] [id number] Stripping Shovel Oiler: Timmy Carrion PhD, Phone: [phone] Serum 11/27/2024 7:32 AM EDT 11/28/2024 7:06 AM EDT Srinivasa Beaulieu MD CHEMISTRY ORDERABLES Final Res ult Performing Organization Address [facility] Co de Phone Number [facility] [address] * COMPREHENSIVE METABOLIC PANEL (11/27/2024 7:32 AM EDT) [facility] Sodium 137 135 - 146 mmol/L [facility] Potassium 3.8 3.5 - 5.1 mmol/L [facility] Chloride 105 98 - 110 mmol/L [facility] CO2 26 22 - 29 mmol/L [facility] Anion Gap 6 5 - 13 mmol/L [facility] Comment:Anion gap calculatio n does not include potassium (K+) value. BUN 13 7 - 25 mg/dL [facility] Creatinine 0.75 0.50 - 1.20 mg/dL [facility] Glucose 95 71 - 99 mg/dL [facility] Comment:Reference range (71- 99 mg/dL) refers only to fasting samples, and does not apply to non-fasting samples. eGFR CKD-EPI 2020 80 See Note [facility] Comment: eGFR calculated with 2020 CKD-EPI equation using creatinine, patient's age and gender. Other factors, especially muscle mass, may affect accuracy and need to be considered. Patient values should be interpreted as a trend. The reference interval is >60 mL/min/1.73m2. Calcium 9.2 8.5 - 10.5 mg/dL [facility] Total Bilirubin 0.7 0.2 - 1.2 mg/dL [facility] AST 24 0 - 30 U/L [facility] ALT 14 0 - 40 U/L [facility] Alkaline Phosphatase 50 33 - 140 U/L [facility] Total Protein 7.0 6.0 - 8.0 g/dL [facility] Albumin 4.0 3.5 - 5.0 g/dL [facility] Globulin 3.0 2.0 - 3.7 g/dL [facility] Albumin/Globulin Ratio 1.3 1.0 - 2.1 [facility] BUN/Creatinine Ratio 17 [facility] Plasma 11/27/2024 7:32 AM EDT 11/27/2024 11:35 AM EDT us Srinivasa Beaulieu MD CHEMISTRY ORDERABLES Final Res ult [facility] [address] * CBC WITH DIFFERENTIAL (11/27/2024 7:32 AM EDT) WBC 7.15 4.00 - 12.00 10*3/uL [facility] RBC 4.08 3.80 - 5.10 10*6/uL [facility] Hemoglobin 12.8 11.7 - 15.5 g/dL [facility] Hematocrit Blood 38.3 35.0 - 46.0 % [facility] MCV 93.9 80.0 - 100.0 fL [facility] MCH 31.4 27.0 - 33.0 pg [facility] MCHC 33.4 30.0 - 36.0 g/dL [facility] RDW 12.5 11.0 - 15.0 % [facility] Platelets 236 140 - 400 10*3/uL [facility] MPV 10.3 9.0 - 13.0 fL [facility] Whole Blood 11/27/2024 7:32 AM EDT 11/27/2024 11:35 AM EDT us Srinivasa Beaulieu MD HEMATOLOGY ORDERABLES Final Re sult Performing Organization Address City/[facility]/ZIP Co de Phone Number [facility] [address] * PHOSPHORUS (11/27/2024 7:32 AM EDT) Phosphorus 3.9 2.1 - 4.3 mg/dL [facility] Serum 11/27/2024 7:32 AM EDT 11/27/2024 11:35 AM EDT us Srinivasa Beaulieu MD CHEMISTRY ORDERABLES Final Res ult Performing Organization Address [facility] de Phone Number [facility] [address] documented in this encounter Visit Diagnoses Diagnosis Senile osteoporosis- Primary History of breast cancer Personal history of malignant neoplasm of breast documented in this encounter Care Teams Theatrical Scenic Designer Relationship Specialty Start Date End Date Davon Durand MD PCP - General Family Medicine 08/30/15 Jailene Keating NP [address] [facility] [place] [address] Registered Nurse 03/04/18 Srinivasa Beaulieu MD [address] [place] [address] Hematology and Oncology 05/19/18 Sharmin Mancilla Labels Molder Social Work 10/29/18 Estefania Underwood PA [address] [place] [address] Surgical Oncology 08/26/20 Ceci Lomeli NP [address] [place] [address] Nurse Practitioner Nurse Practitioner, Family 09/01/20 Singh Davis MD [address] [place] [address] General Surgery 01/12/21 Annabel Ojeda RN [address] [place] [address] Registered Nurse 01/16/21 Chrissy Radford RN Registered Nurse 07/11/21 Akosua Moss MD [address] [place] [address] Surgical Oncology 10/12/21 [place] [address] [place] [address] Nurse Practitioner Nurse Practitioner, Family 04/20/22 Waylon Penn MD [address] [place] [address] Female Pelvic Medicine and Reconstructive Surgery 06/24/22 [place] [address] [place], [place] [id number] Otolaryngology 12/05/22 documented as of this encounter
--- OUTSIDE RECORDS SUMMARY | 2024-11-27 09:26 | XMS_ITS | Encounter Summary ---
Author Organization [facility] Address [address] [place] [address] Care Team Providers Care Radiology Scheduler Name Role Phone Davon Durand MD Primary Care Provider [phone] Jailene Keating NP Unavailable [phone] Srinivasa Beaulieu MD Unavailable [phone] Sharmin Mancilla Unavailable Unavailable Estefania Underwood Unavailable Ceci Lomeli NP Unavailable Unavailable Singh Davis MD Unavailable [phone] Annabel Ojeda RN Unavailable [phone] Chrissy Radford RN Unavailable Unavailable Akosua Moss MD Unavailable [phone] Guerline Stern NP Unavailable [phone] Waylon Penn MD Unavailable [phone] Vic Moss MD Unavailable [phone] Reason for Visit * Treatment and Therapy Plans (Routine) - Authorized Specialty Diagnoses / Procedures Referred By Contac t Referred To Contact Diagnoses Senile osteoporosis Srinivasa Beaulieu MD [address] [place] [address] Phone: tel: fax: [facility] [address] [facility] [place] [address] Phone: tel: Referral ID Status Reason Start Date Expiration Date V isits Requested Visits Authorized [id number] Authorized 09/01/2020 10/27/2025 1 1008 Encounter Details Date Type Department Care Team (Latest Contact Info) Description 11/27/2024 9:26 AM EDT - 11/27/2024 11:59 PM EDT Hospital Encounter [facility] [address] [place] [address] Senile osteoporosis (Primary Dx) Discharge Disposition: Home or Self Care Social [...] of Assessment Author No 10/20/2017 3:43 PM Jania Duffy RN * Do you have difficulty [...] as of this encounter Progress Notes * Lisa Wan RN - 11/27/2024 12:15 PM EDT Prolia given in left arm documented in this encounter Plan of Treatment Upcoming Encounters Date Type Department Care Team (Late st Contact Info) Description 05/06/2025 12:30 PM EST Appointment [facility] Medical Office Building, [address] [place] [address] 05/06/2025 1:30 PM EST Appointment [facility] Physicians - Surgical Oncology, [address] [place] [address] Akosua Moss MD [address] [place] [address]. [address] [place], [place] [address] 05/28/2025 12:15 PM EST Appointment [facility] [address] [place] [address] Srinivasa Beaulieu MD [address] [place] [address] 05/28/2025 12:30 PM EST Appointment [facility] [address] [place] [address] documented as of this encounter Visit Diagnoses Diagnosis Senile osteoporosis- Primary documented in this encounter Administered Medications Inactive Administered Medications - up to 3 most recent administrations Medication Order MAR Action Action Date Dose Rate Site Denosumab (Prolia) injection Syrg 60 mg 60 mg, Subcutaneous, ONCE, On Sat11/27/24 at 1210, For 1 doseIndications:Senile osteoporosis Given 11/27/2024 11:28 AM EDT 60 mg Left Upper Arm (Back) documented in this encounter Care Teams Radiology Scheduler Relationship Specialty Start Date End Date Davon Durand MD PCP - General Family Medicine 08/30/15 Jailene Keating NP [address] [facility] [place] [place] [address] Registered Nurse 03/04/18 Srinivasa Beaulieu MD [address] [place] [address] Hematology and Oncology 05/19/18 Sharmin Mancilla Program Mgr Social Work 10/29/18 Estefania Underwood PA [address] [place] [address] Surgical Oncology 08/26/20 Ceci Lomeli TRUST MAIL CLERK [address] [place] [address] Nurse Practitioner Nurse Practitioner, Family 09/01/20 Singh Davis MD [address] [place] [address] General Surgery 01/12/21 Annabel Ojeda, JOYCE [address] [place] [address] Registered Nurse 01/16/21 Chrissy Radford RN Registered Nurse 07/11/21 Akosua Moss MD [address] [place] [address] Surgical Oncology 10/12/21 [place] [address] [place] [address] Nurse Practitioner Nurse Practitioner, Family 04/20/22 Waylon Penn MD [address] [place] [address] Female Pelvic Medicine and Reconstructive Surgery 06/24/22 [place] [address] [place], [place] [address] Otolaryngology 12/05/22 documented as of this encounter
--- OUTSIDE RECORDS SUMMARY | 2024-12-31 15:06 | XMS_ITS | Encounter Summary ---
Author Organization [facility] Address [address] [place] [address] Care Team Providers Care Splitter Operator Name Role Phone Davon Durand MD Primary Care Provider [phone] Jailene Keating NP Unavailable Srinivasa Beaulieu MD Unavailable [phone] Sharmin Mancilla Unavailable Unavailable Estefania Underwood Unavailable [phone] Ceci Lomeli NP Unavailable Unavailable Singh Davis MD Unavailable Annabel Ojeda RN Unavailable [phone] Chrissy Radford RN Unavailable Unavailable Akosua Moss MD Unavailable [phone] Guerline Stern NP Unavailable [phone] Waylon Penn MD Unavailable [phone] Vic Moss MD Unavailable [phone] Encounter Details Date Type Department Care Team (Latest Contact Info) Description 07/01/2017 Preop Surgical Orders [facility] Physicians - Surgical Oncology, [place] [address] [facility], [address] [place] [address] Wilmerding, Tomeka M., RN Malignant neoplasm of right breast in female, estrogen receptor positive, unspecified site of breast ([facility]) (Primary Dx) Social History Tobacco Use [...] Description 05/06/2025 12:30 PM EST Appointment [facility] Medical Office Building, [address] [place] [address] 05/06/2025 1:30 PM EST Appointment [facility] Physicians - Surgical Oncology, [address] [place] [address] Akosua Moss MD [address] [facility] [address] [place] [address] 05/28/2025 12:15 PM EST Appointment The [facility], [facility] [address] [place] [address] Srinivasa Beaulieu MD [address] [place] [address] 05/28/2025 12:30 PM EST Appointment The [address] [place] [address] documented as of this encounter Visit Diagnoses Diagnosis Malignant neoplasm of right breast in female, estrogen receptor positive, unspecified site of breast ([facility])- Primary documented in this encounter Additional Health Concerns Infection Onset Date Last Indicated Resolved Time Pneumonia Comment:10/20/17; requires respiratory isolation. 10/21/2017 10/21/2017 10/24/2017 10:33 AM EDT documented as of this encounter Care Teams Splitter Operator Relationship Specialty Start Date End Date Davon Durand MD PCP - General Family Medicine 08/30/15 Jailene Keating NP [address] [place] [address] Registered Nurse 03/04/18 Srinivasa Beaulieu MD [address] [place] [address] Hematology and Oncology 05/19/18 Sharmin Mancilla Gasket Winder Social Work 10/29/18 Estefania Underwood PA [address] [place] [address] Surgical Oncology 08/26/20 Ceci Lomeli NP [address] [place] [address] Nurse Practitioner Nurse Practitioner, Family 09/01/20 Singh Davis MD [address] [place] [address] General Surgery 01/12/21 Annabel Ojeda RN [address] [place] [address] Registered Nurse 01/16/21 Chrissy Radford RN Registered Nurse 07/11/21 Akosua Moss MD [address] [place] [address] Surgical Oncology 10/12/21 Guerline Stern COMPLIANCE SPEC [address] [place] [address] Nurse Practitioner Nurse Practitioner, Family 04/20/22 Waylon Penn MD [address] [place] [address] Female Pelvic Medicine and Reconstructive Surgery 06/24/22 [place] [address] [place], [place] [address] Otolaryngology 12/05/22 documented as of this encounter
--- OUTSIDE RECORDS SUMMARY | 2024-12-31 15:06 | XMS_ITS | Clinical Summary ---
Author Organization [facility] Address [address] [facility] [place] [address] Phone Care Team Providers Care Slide Attendant Name Role Phone Davon Durand MD Primary Care Provider [phone] Allergies Active Allergy Reactions Criticality Noted Date [...] by mouth as needed for Pain. Active [id number] ehh-UzYo-AHe-as b-C (PLENVU) 140-9-5.2 gram Oral Powder in [...] (07/25/2022): Added automatically from request for surgery [id number] Pneumonitis 10/20/2017 Breast cancer 06/18/2017 Overview (07/01/2017): right IDC ER 96% [place] 12 % HER2 negative Hyperlipidemia 12/05/2015 Primary osteoarthritis involving multiple joints 12/05/2015 Pre-operative cardiovascular examination 016 Neoplasm of uncertain behavior of skin 6 Surgical History Surgery Date Site/Laterality Comments TOTAL KNEE ARTHROPLASTY Right BREAST BIOPSY 06/18/2017 Right COLONOSCOPY Medical History Medical History Date Comments Breast cancer (HCC) 06/18/2017 right IDC ER 96% [place] 12 % HER2 negative GERD (gastroesophageal reflu [...] EST) 07/25/2022 12:4 0 PM EST Impressions [facility] - 07/25/2022 1:16 PM EST Polyps [...] ORDERABLES Fin al Result Performing Organization Address City/State/[facility] Co de Phone Number [facility] [address] [place] [address] * DX BONE DENSITY AXIAL SKELETON (06/05/2017 9:46 AM EST) Anatomical Region Laterality Modality Dexa Scan 06/05/2017 Addenda Addendum by Taty Chacko MD on 04/21/2018 4:28 PM EST Bone Density Report Name: Lizeth Woodall Age: 72 Sex: Female Ethnicity: White Date of : 1945 Indication: This bone density report has been reanalyzed as the result of a vp account director change in equipment calibration. Referring Physician: Hugo Rucker Study was performed on [employer] [place] 5. Exam Date: June 05, 2017 Accession number: [id number] Bone Density: Region BMD T-score Z-score AP [...] bone density assessment. Study was performed on [employer] [place] 5. Bone Density: Region BMD T-score [...] Lopez PA-C, CCD on 06/05/2017 11:25:00 AM. [facility] Gianni Rucker [facility] DEXA ORDERABLES Edited Resu lt - Final from Last 3 Months or Most Recently Relevant to Health Maintenance Insurance [employer] MEDICARE PPO MR Care Teams Slide Attendant Relationship Specialty Start Date End Date Davon Durand MD PCP - General 04/12/10
--- OUTSIDE RECORDS SUMMARY | 2024-12-31 15:06 | XMS_ITS | Encounter Summary ---
Author Organization [facility] Address [address] [place] [address] Care Team Providers Care Sas Architect Name Role Phone Davon Durand MD Primary Care Provider [phone] Jailene Keating NP Unavailable Srinivasa Beaulieu MD Unavailable [phone] Sharmin Mancilla Unavailable Unavailable Estefania Underwood Unavailable [phone] Ceci Lomeli NP Unavailable Unavailable Singh Davis MD Unavailable [phone] Annabel Ojeda RN Unavailable [phone] Chrissy Radford RN Unavailable Unavailable Akosua Moss MD Unavailable [phone] Guerline Stern NP Unavailable [phone] Waylon Penn MD Unavailable [phone] Vic Moss MD Unavailable [phone] Encounter Details Date Type Department Care Team (Latest Contact Info) Description 06/18/2018 Preop Surgical Orders [facility] Physicians - UrogynecologyLe [address] [place] [address] Dasha Peralta, RN [address] [place] [address] Uterine prolapse (Primary Dx) Social History Tobacco [...] Description 05/06/2025 12:30 PM EST Appointment [facility] Medical Office Building, [address] [place] [address] 05/06/2025 1:30 PM EST Appointment [facility] Physicians - Surgical Oncology, [phone] Akosua Moss MD [address] [place] [address]. [address] [place] [address] 05/28/2025 12:15 PM EST Appointment [facility], [place] [address] [place] [address] Srinivasa Beaulieu MD [address] [place] [address] 05/28/2025 12:30 PM EST Appointment [facility], [facility] [place] [address] [place] [address] documented as of this encounter Results * [...] LAB Platelets 192 140 - 400 10*3/uL [facility] MPV 9.7 7.5 - 11.5 fL [facility] Whole Blood (Blood) 06/23/2018 8:17 PM EST 06/23/2018 8:16 PM EST us Waylon Penn MD HEMATOLOGY ORDERABLES Final Result [facility] [address] documented in this encounter Visit Diagnoses Diagnosis Uterine prolapse- Primary Uterine prolapse without mention of vaginal wall prolapse documented in this encounter Care Teams Sas Architect Relationship Specialty Start Date End Date Davon Durand MD PCP - General Family Medicine 08/30/15 Jailene Keating NP [address] [place] [address] Registered Nurse 03/04/18 Srinivasa Beaulieu MD [address] [place] [address] Hematology and Oncology 05/19/18 Sharmin Mancilla Research Consultant Social Work 10/29/18 Estefania Underwood PA [address] [place] [address] Surgical Oncology 08/26/20 Ceci Lomeli NP [address] [place] [address] Nurse Practitioner Nurse Practitioner, Family 09/01/20 Singh Davis MD [address] [place] [address] General Surgery 01/12/21 Annabel Ojeda RN [address] [place] [address] Registered Nurse 01/16/21 Chrissy Radford RN Registered Nurse 07/11/21 Akosua Moss MD [address] [place] [address] Surgical Oncology 10/12/21 [place] [address] [address] Nurse Practitioner Nurse Practitioner, Family 04/20/22 Waylon Penn MD [address] [place] [address] Female Pelvic Medicine and Reconstructive Surgery 06/24/22 [place] [address] [place] [address] Otolaryngology 12/05/22 documented as of this encounter
--- OUTSIDE RECORDS SUMMARY | 2024-12-31 15:06 | XMS_ITS | Clinical Summary ---
Author Organization [facility] Address [address] [place] [address] Care Team Providers Care Larriman Helper Name Role Phone Davon Durand MD Primary Care Provider [phone] Jailene Keating NP Unavailable [phone] Srinivasa Beaulieu MD Unavailable [phone] Sharmin Mancilla Unavailable Unavailable Estefania Underwood Unavailable [phone] Ceci Lomeli NP Unavailable Unavailable Singh Davis MD Unavailable [phone] Annabel Ojeda RN Unavailable Chrissy Radford RN Unavailable Unavailable Akosua Moss MD Unavailable [phone] Guerline Stern NP Unavailable [phone] Waylon Penn MD Unavailable Vic Moss MD Unavailable [phone] Allergies Active Allergy Reactions Criticality Noted Date [...] (06/18/2018): Added automatically from request for surgery [id number] Screening for osteoporosis 05/19/2018 Pneumonitis 10/20/2017 Malignant neoplasm of right female breast ([facility]) 07/18/2017 Cancer Staging:Pathologic stage from 07/30/2017:Stage IA(pT1c, pN1mi(sn), cM0, G2, ER: Positive, CA: Positive, HER2: Negative, Oncotype DX score: 21) [...] 11/27/2024 11:59 PM EDT Hospital Encounter [facility], [place] [address] [facility] [place] [address] Senile osteoporosis (Primary Dx) Discharge Disposition: Home or Self Care 11/27/2024 9:25 AM EDT Hospital Encounter [facility] [place] [address] [facility] [place] [address] Srinivasa Beaulieu MD Senile osteoporosis (Primary Dx); [...] Reggie Hernandez Maternal Grandfather Maternal Grandmother Mother Adni Hernandez Alive Paternal Grandfather Paternal Grandmother Social [...] [facility] Medical Office Building, [address] [place] [address] 05/06/2025 1:30 PM EST Appointment [facility] Physicians - Surgical Oncology, [address] [place] [address] Akosua Moss MD [address] [place] [address] 05/28/2025 12:15 PM EST Appointment [facility], [facility] [address] [place] [address] Srinivasa Beaulieu MD [address] [place] [address] 05/28/2025 12:30 PM EST Appointment [facility], [facility] [address] [place] [address] [place] [address] Health Maintenance Due Date Last Done Comments [...] history exists Medical Devices Implanted Type Area Swimming Pool Service Technician Device Identifier Shelf Expiration Date Model / Serial / Lot Cement Bone Simplex Tobramycin Implanted:Qty : 2 on 12/05/2015 by Desmond Jeronimo MD at [facility] Right: Knee * OMEGA 12/14/2016 [id number] / / [id number] Lateral Insert-A Implanted:Qty : 1 on 12/05/2015 by Desmond Jeronimo MD at [facility] Right: Knee 05/16/2016 [id number] / [id number] / Itotal Femoral Implant Implanted:Qty : 1 on 12/05/2015 by Desmond Jeronimo MD at [facility] Right: Knee 05/16/2016 [id number] / [id number] / Itotal -Ipoly-32mmx6 mm Patella Implant Implanted:Qty : 1 on 12/05/2015 by Desmond Jeronimo MD at [facility] Right: Knee 07/17/2016 [id number] / / [id number] Medial Insert 6mm Implanted:Qty : 1 on 12/05/2015 by Desmond Jeronimo MD at [facility] Right: Knee 05/16/2016 [id number] / [id number] / Slng Sgl Incis Altis Implanted:Qty : 1 on 06/24/2018 by Waylon Penn MD at [facility] 8 OR Suburetheral * COLOPLAST 03/03/2021 [id number] / / [id number] Attune Tibial Insert Rotat Platform Ps Size 5 ,5mm Aox - [id number] Implanted:Qty : 1 on 01/27/2024 by Natanael Pelayo MD at [facility] Left: Knee * J \T\ J DEPUY [id number] 12/14/2028 [facility] 6-50-505 / / [id number] Attune Patella Medialized Dome - [id number] Implanted:Qty : 1 on 01/27/2024 by Natanael Pelayo MD at [facility] Left: Knee BREA \T\ [employer] [id number] 09/15/2031 [id number] / / [id number] Attune Rp With Dome - [id number] Implanted:Qty : 1 on 01/27/2024 by Natanael Pelayo MD at [facility] Left: Knee BREA \T\ [employer] [id number] / / Cement Bone Simplex Gentamici - [id number] Implanted:Qty : 1 on 01/27/2024 by Natanael Pelayo MD at [facility] Left: Knee [employer] [id number] 03/16/2025 [id number] / / [id number] Attune Knee System Tibial Base Rotating Platform Sz-4 Cemented - [id number] Implanted:Qty : 1 on 01/27/2024 by Natanael Pelayo MD at [facility] Left: Knee * J \T\ J DEPUY [id number] 10/14/2033 150 [id number] / / [id number] Attune Femoral P/S Narrow Size 5n Left Paco - [id number] Implanted:Qty : 1 on 01/27/2024 by Natanael Pelayo MD at [facility] Left: Knee * J \T\ J DEPUY [id number] 09/14/2033 150 [id number] / / [id number] Procedures Procedure Name Priority Date/Time Associated Diagnosis [...] Final Res ult [facility] [address] * DIFFERENTIAL (11/27/2024 7:32 AM EDT) [...] EXTERNAL LAB nRBC 0 /100 WBC [facility] BUSINESS SEGMENT MANAGER AL LAB Whole Blood 11/27/2024 7:32 AM EDT 11/27/2024 11:36 AM EDT Srinivasa Beaulieu MD HEMATOLOGY ORDERABLES Final Re sult Performing Organization Address [facility] Co de Phone Number [facility] EXTERNAL [facility] [address] * CBC WITH DIFFERENTIAL (11/27/2024 7:32 [...] LAB MPV 10.3 9.0 - 13.0 fL [facility] EXTERNAL LAB Whole Blood 11/27/2024 7:32 AM EDT 11/27/2024 11:35 AM EDT Srinivasa Beaulieu MD HEMATOLOGY ORDERABLES Final Re sult Performing Organization Address [facility] Co de Phone Number [facility] EXTER[facility] [address] * PHOSPHORUS (11/27/2024 7:32 AM EDT) Phosphorus 3.9 2.1 - 4.3 mg/dL [facility] EXTERNAL LAB Serum 11/27/2024 7:32 AM EDT 11/27/2024 11:35 AM EDT Srinivasa Beaulieu MD CHEMISTRY ORDERABLES Final Res ult Performing Organization Address [facility] Co de Phone Number [facility] EXTERNAL [facility] [address] [place] [address] * COMPREHENSIVE METABOLIC PANEL (11/27/2024 7:32 AM [...] LAB Glucose 95 71 - 99 mg/dL [facility] EXTERNAL [facility] Comment:Reference range (71- 99 mg/dL) [...] Beaulieu MD CHEMISTRY ORDERABLES Final Res ult [facility] EX[facility] [address] * CA27.29 (11/27/2024 7:32 AM EDT) CA 27-29 35.9 0.0 - 38.6 U/mL [facility] EXTER[facility] Comment: Siemens Kaznacheyaur Immunochemiluminometric Methodology (ICMA) Values obtained with different assay methods or kits cannot be used interchangeably. Results cannot be interpreted as absolute evidence of the presence or absence of malignant disease. Performed at: [facility] [address] [id number] Vending Attendant: Timmy Carrion PhD, Phone: [phone] Serum 11/27/2024 7:32 AM EDT 11/28/2024 7:06 AM EDT us Srinivasa Beaulieu MD CHEMISTRY ORDERABLES Final Res ult Performing Organization Address [facility] Co de Phone Number [facility] EXTERNAL [facility] [address] * ROBINA-DEXA SCAN AXIAL SKELETON (08/13/2023 [...] By: Mariusz Galaviz MD Kerry K. Sandy LOOM CHANGEOVER OPERATOR IMG DEXA ORDERABLES Final Res ult from Last 3 Months or Most Recently Relevant to Health Maintenance Insurance [address] [employer] MEDICARE [id number] MEDICARE Constance BRADY [address] MEDICARE Advance Directives For more information, please contact: [phone] Documents on File Type Date Recorded Patient Poultry Vaccinator Expl anation Advance Directives and Living Will [...] 11:19 AM 12/06/2015 8:06 PM Care Teams Larriman Helper Relationship Specialty Start Date End Date Davon Durand MD PCP - General Family Medicine 08/30/15 Jailene Keating NP [address] [place] [address] Registered Nurse 03/04/18 Srinivasa Beaulieu MD [address] [place] [address] Hematology and Oncology 05/19/18 Sharmin Mancilla Atomic Fuel Assembler Social Work 10/29/18 Estefania Underwood PA [address] [place] [address] Surgical Oncology 08/26/20 Ceci Lomeli NP [address] [place] [address] Nurse Practitioner Nurse Practitioner, Family 09/01/20 Singh Davis MD [address] [place] [address] General Surgery 01/12/21 Annabel Ojeda RN [address] [place] [address] Registered Nurse 01/16/21 Chrissy Radford RN Registered Nurse 07/11/21 Akosua Moss MD [address] [place] [address] Surgical Oncology 10/12/21 [place] [address] [place] [address] Nurse Practitioner Nurse Practitioner, Family 04/20/22 Waylon Penn MD [address] [facility] [place] [address] Female Pelvic Medicine and Reconstructive Surgery 06/24/22 [place] [address] [place] [address] Otolaryngology 12/05/22
--- OUTSIDE RECORDS SUMMARY | 2024-12-31 15:06 | XMS_ITS | Encounter Summary ---
Author Organization [facility] Address [address] [place] [address] Care Team Providers Care Import/Export Agent Name Role Phone Davon Durand MD Primary Care Provider [phone] Jailene Keating NP Unavailable [phone] Srinivasa Beaulieu MD Unavailable [phone] Sharmin Mancilla Unavailable Unavailable Estefania Underwood Unavailable [phone] Ceci Lomeli NP Unavailable Unavailable Singh Davis MD Unavailable [phone] Annabel Ojeda RN Unavailable [phone] Chrissy Radford RN Unavailable Unavailable Akosua Moss MD Unavailable [phone] Guerline Stern NP Unavailable [phone] Waylon Penn MD Unavailable Vic Moss MD Unavailable [phone] Encounter Details Date Type Department Care Team (Late st Contact Info) Description 03/02/2020 Orders Only [facility] Physicians - Hematology & Oncology, [place] [address] [place] [address] Srinivasa Beaulieu MD [address] [place] [address] Malignant neoplasm of upper-outer quadrant of right [...] Description 05/06/2025 12:30 PM EST Appointment [facility], [address] [place] [address] 05/06/2025 1:30 PM EST Appointment [facility] Physicians - Surgical Oncology, [facility] [address] [place] [address] Akosua Moss MD [address] [facility] [place] [address] 05/28/2025 12:15 PM EST Appointment The [facility], [facility] [address] [place] [address] Srinivasa Beaulieu MD [address] [place] [address] 05/28/2025 12:30 PM EST Appointment The [facility], [address] [place] [address] documented as of this encounter Results * (ABNORMAL) CA27.29 (03/18/2020 9:35 AM EDT) CA 27-29 47(H) <38 U/mL [facility] ACCOUNTING ADMINISTRATOR AL LAB Comment: This test was performed using the Siemens Chemiluminescent method. Values obtained from different assay methods cannot be used interchangeably. CA 27.29 levels, regardless of value, should not be interpreted as absolute evidence of the presence or absence of disease. Test performed at [facility] [address] [address] KARLA CONNER MD Serum 03/18/2020 9:35 AM EDT 03/19/2020 1:56 PM EDT us Srinivasa Beaulieu MD CHEMISTRY ORDERABLES Final Res ult [facility] EXTERNAL LAB [address] [place] [address], [facility] documented in this encounter Visit Diagnoses Diagnosis Malignant neoplasm of upper-outer quadrant of right breast in female, estrogen receptor positive ([facility])- Primary documented in this encounter Care Teams Import/Export Agent Relationship Specialty Start Date End Date Davon Durand MD PCP - General Family Medicine 08/30/15 Jailene Keating NP [address] [place] [address] Registered Nurse 03/04/18 Srinivasa Beaulieu MD [address] [place] [address] Hematology and Oncology 05/19/18 Sharmin Mancilla Vertical Boring Mill Operator Social Work 10/29/18 Estefania Underwood PA [address] [place] [address] Surgical Oncology 08/26/20 Ceci Lomeli NP [address] [place] [address] Nurse Practitioner Nurse Practitioner, Family 09/01/20 Singh Davis MD [address] [place] [address] General Surgery 01/12/21 Annabel Ojeda RN [address] [place] [address] Registered Nurse 01/16/21 Chrissy Radford RN Registered Nurse 07/11/21 Akosua Moss MD [address] [place] [address] Surgical Oncology 10/12/21 [place] [address] [place] [address] Nurse Practitioner Nurse Practitioner, Family 04/20/22 Waylon Penn MD [address] [facility] [address] [place] [address] Female Pelvic Medicine and Reconstructive Surgery 06/24/22 [place] [address] [place] [address] Otolaryngology 12/05/22 documented as of this encounter
--- OUTSIDE RECORDS SUMMARY | 2024-12-31 15:06 | XMS_ITS | Encounter Summary ---
Author Organization [facility] Address [address] [place] [address] Care Team Providers Care [employer] Glazer Name Role Phone Davon Durand MD Primary Care Provider Jailene Keating NP Unavailable Srinivasa Beaulieu MD Unavailable [phone] Sharmin Mancilla Unavailable Unavailable Estefania Underwood Unavailable [phone] Ceci Lomeli NP Unavailable Unavailable Singh Davis MD Unavailable [phone] Annabel Ojeda RN Unavailable [phone] Chrissy Radford RN Unavailable Unavailable Akosua Moss MD Unavailable [phone] Guerline Stern NP Unavailable [phone] Waylon Penn MD Unavailable Vic Moss MD Unavailable [phone] Encounter Details Date Type Department Care Team (Late st Contact Info) Description 07/24/[address] [facility] Physicians - Surgical Oncology, [place] [address] [facility], [address] [place] [address] Ruby, Tomeka M., RN Social History Tobacco [...] 12:30 PM EST Appointment [facility] Medical Office Building, [address] [place] [address] 05/06/2025 1:30 PM EST Appointment [facility] Physicians - Surgical Oncology, [address] [place] [address] Akosua Moss MD [address] [facility]. [address] [place], [place] [address] 05/28/2025 12:15 PM EST Appointment [facility], [address] [place] [address] Srniivasa Beaulieu MD [address] [place] [address] 05/28/2025 12:30 PM EST Appointment [facility], [address] [place] [address] documented as of this encounter Visit Diagnoses Not on filedocumented in this encounter Additional Health Concerns Infection Onset Date Last Indicated Resolved Time Pneumonia Comment:10/20/17; requires respiratory isolation. 10/21/2017 10/21/2017 10/24/2017 10:33 AM EDT documented as of this encounter Care Teams [employer] Glazer Relationship Specialty Start Date End Date Davon Durand MD PCP - General Family Medicine 08/30/15 Jailene Keating NP [address] [place] [address] Registered Nurse 03/04/18 Srinivasa Beaulieu MD [address] [place] [address] Hematology and Oncology 05/19/18 Sharmin Mancilla Workforce Development Program Director Social Work 10/29/18 Estefania Underwood PA [address] [place] [address] Surgical Oncology 08/26/20 Ceci Lomeli NP [address] [place] [id number] Nurse Practitioner Nurse Practitioner, Family 09/01/20 Singh Davis MD [address] [place] [address] General Surgery 01/12/21 Annabel Ojeda RN [address] [place] [address] Registered Nurse 01/16/21 Chrissy Radford, RN Registered Nurse 07/11/21 Akosua Moss MD [address] [place] [address] Surgical Oncology 10/12/21 [place] [address] [facility] [place], [place] [address] Nurse Practitioner Nurse Practitioner, Family 04/20/22 Waylon Penn MD [address] [facility] [place], [place] [address] Female Pelvic Medicine and Reconstructive Surgery 06/24/22 [place] [address] [place] [address] Otolaryngology 12/05/22 documented as of this encounter
--- OUTSIDE RECORDS SUMMARY | 2024-12-31 15:06 | XMS_ITS | Encounter Summary ---
Author Organization [facility] Address [address] [place] [address] Care Team Providers Care Family Resource Management Professor Name Role Phone Davon Durand MD Primary Care Provider [phone] Jailene Keating NP Unavailable Srinivasa Beaulieu MD Unavailable [phone] Sharmin Mancilla Unavailable Unavailable Estefania Underwood Unavailable [phone] Ceci Lomeli NP Unavailable Unavailable Singh Davis MD Unavailable [phone] Annabel Ojeda RN Unavailable Chrissy Radford RN Unavailable Unavailable Akosua Moss MD Unavailable Guerline Stern NP Unavailable [phone] Waylon Penn MD Unavailable Vic Moss MD Unavailable [phone] Encounter Details Date Type Department Care Team (Late st Contact Info) Description 03/24/2020 Orders Only [facility] Cancer Center, [facility] [address] [facility] Level [address] [place], [place] [id number] Srinivasa Beaulieu MD [address] [place] [address] Malignant neoplasm of upper-outer quadrant of right [...] Description 05/06/2025 12:30 PM EST Appointment [facility], [address] [place] [address] 05/06/2025 1:30 PM EST Appointment [facility] Physicians - Surgical Oncology, [facility] [address] [place] [address] Akosua Moss MD [address] [facility] [place] [address] 05/28/2025 12:15 PM EST Appointment [facility] [address] [place] [address] Srinivasa Beaulieu MD [address] [place] [address] 05/28/2025 12:30 PM EST Appointment [facility] [address] [place] [address] documented as of this encounter Visit Diagnoses Diagnosis Malignant neoplasm of upper-outer quadrant of right breast in female, estrogen receptor positive ([facility])- Primary documented in this encounter Care Teams Family Resource Management Professor Relationship Specialty Start Date End Date Davon Durand MD PCP - General Family Medicine 08/30/15 Jailene Keating NP [address] [facility] [place] [address] Registered Nurse 03/04/18 Srinivasa Beaulieu MD [address] [place] [address] Hematology and Oncology 05/19/18 Sharmin Mancilla Book Canvasser Social Work 10/29/18 Estefania Underwood PA [address] [place] [address] Surgical Oncology 08/26/20 Ceci Lomeli NP [address] [place] [address] Nurse Practitioner Nurse Practitioner, Family 09/01/20 Singh Davis MD [address] [place] [address] General Surgery 01/12/21 Annabel Ojeda RN [address] [place] [address] Registered Nurse 01/16/21 Chrissy Radford RN Registered Nurse 07/11/21 Akosua Moss MD [address] [place] [address] Surgical Oncology 10/12/21 [place] [address] [address] [place] [address] Nurse Practitioner Nurse Practitioner, Family 04/20/22 Waylon Penn MD [address] [place] [address] Female Pelvic Medicine and Reconstructive Surgery 06/24/22 [place] [address] [place], [place] [address] Otolaryngology 12/05/22 documented as of this encounter
--- OUTSIDE RECORDS SUMMARY | 2024-12-31 15:06 | XMS_ITS | Data Portability ---
Author Organization [facility] Address [address] [facility] [address] [place] [address] Assessment Encounter Date Assessment Date Assessment LastModified [...] By Organization Details Last Modified Time 08/27/2017 [id number] actinic keratosis: care instructions Not available 08/27/2017 13:17:52 Education: We discussed the potential diagnostic options, options for further evaluation and treatments, and the risks and benefits of each. [email or web address] Not available 08/27/2017 10:32:45 09/22/2018 [id number] Education: We discussed the potential diagnostic options, options for further evaluation and treatments, and the risks and benefits of each. [email or web address] Not available 09/22/2018 10:19:10 11/17/2019 [id number] Education: We discussed the potential diagnostic options, options for further evaluation and treatments, and the risks and benefits of each. [email or web address] Not available 11/17/2019 07:45:46 11/29/2020 [id number] Education: We discussed the potential diagnostic options, options for further evaluation and treatments, and the risks and benefits of each. [email or web address] Not available 11/29/2020 10:18:39 11/28/2021 [id number] Education: We discussed the potential diagnostic options, options for further evaluation and treatments, and the risks and benefits of each. [email or web address] Not available 11/28/2021 07:14:22 Reason for Referral None Reported. 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 Procedures Surgical History Date Name Laterality Status Provider Name and Address Organization Details Recorded Time 11/29/19 22 Destruction Premalignant Lesion(s) completed [facility] 11/28/2021 10:52:07 11/29/19 22 Destruction BN Lesions completed [facility] 11/28/2021 10:50:27 11/30/19 21 Destruction BN Lesions completed [facility] 11/29/2020 10:34:21 09/23/19 19 Destruction BN Lesions completed [facility] 09/22/2018 10:42:15 08/28/19 18 Destruction Premalignant Lesion(s) completed [facility] 08/27/2017 11:07:21 08/22/19 17 [facility] 11:04:34 Imaging Results None recorded. Procedure [...] SNOMED-CT Code Diagnosis ICD10 Code Diagnosis Note [id number] OUMAR MCWILLIAMS MD [facility] [address] [place] [address] 08/21/2016 10:03:48 08/21/2016 13:44:38 History of malignant basal cell neoplasm of skin 233597040 Z85.828 Status post BCC on anterior neck - doing well [place] 977340707 L81.4 reassuranc e Senile hyperkeratosis 39 8539182 L82.1 reassuranc e Inflamed s eborrheic keratosis 187598863 L82.0 LN x 5 [id number] MD JOSÉ MIGUEL MCCOY [facility] [address] [place] [address] 08/27/2017 10:03:20 08/27/2017 12:23:05 History of malignant basal cell neoplasm of skin 170747521 Z85.828 Status post BCC on anterior neck - doing well [place] 996725895 L81.4 reassuranc e Senile hyperkeratosis 39 4797231 L82.1 reassuranc e Hemangioma 311078521 D18 .00 Reassuranc e and education regarding the disorder and options. Actinic keratosis 281364 007 L57.0 Education, then cryodestru ction with liquid nitrogen (LN) x 2 [id number] MD JOSÉ MIGUEL MCCOY [facility] [address] [place] [address] 09/22/2018 10:12:27 09/22/2018 13:46:44 History of malignant basal cell neoplasm of skin 857860256 Z85.828 Status post BCC on anterior neck - doing well [place] 618912002 L81.4 Reassuranc e and education regarding the disorder and options. Senile hyperkeratosis 39 3651500 L82.1 Reassuranc e and education regarding the disorder and options. Blue nevus of skin [address]377 6009 D23.9 Reassuranc e and education regarding the disorder and options. Hemangioma 592751057 D18 .00 Reassuranc e and education regarding the disorder and options. Inflamed s eborrheic keratosis 431323805 L82.0 LN x 3 [id number] MD JOSÉ MIGUEL MCCOY [facility] [address] [place] [address] 11/17/2019 10:24:28 11/17/2019 11:09:47 History of malignant basal cell neoplasm of skin 095228572 Z85.828 Status post BCC on anterior neck - doing well [place] 111699880 L81.4 Reassuranc e Senile hyperkeratosis 39 6635704 L82.1 Reassuranc e Blue nevus of skin 72061 6009 D23.9 Reassuranc e Hemangioma 135163018 D18 .00 Reassuranc e Multiple s kin tags on neck 167772607 L91.8 reassuranc e [id number] OUMAR MCWILLIASM MD [place] [address] [place] [address] 7 11/29/2020 10:16:37 11/29/2020 10:37:44 History of malignant basal cell neoplasm of skin 144366994 Z85.828 Status post BCC on anterior neck - doing well [place] 538859143 L81.4 Reassuranc e Recommende d Equate Ultra Sunscreen 30+ and sun protecting hats/cloth ing Senile hyperkeratosis 39 9798594 L82.1 Reassuranc e Blue nevus of skin 13416 6009 D23.9 Reassuranc e Hemangioma 743638174 D18 .00 Reassuranc e Multiple s kin tags on neck 579144470 L91.8 reassuranc e Inflamed s eborrheic keratosis 373107341 L82.0 LN x 4 [id number] OUMAR MCWILLIAMS MD [place] [address] [place] [address] 7 11/28/2021 10:29:56 11/28/2021 10:56:26 History of malignant basal cell neoplasm of skin 300553726 Z85.828 Status post BCC on anterior neck - doing well [place] 293178892 L81.4 Reassuranc e Recommende d Equate Ultra Sunscreen 30+ and sun protecting hats/cloth ing Senile hyperkeratosis 39 7171556 L82.1 Reassuranc e Blue nevus of skin 63669 6009 D23.9 Reassuranc e Hemangioma 536876989 D18 .00 Reassuranc e Multiple s kin tags on neck 781469333 L91.8 reassuranc e Inflamed s eborrheic keratosis 007643259 L82.0 LN x 3 Actinic keratosis 780655 007 L57.0 Education, then cryodestru ction with liquid nitrogen (LN) x 2 Health Concerns Section Related Observation LastModified by Organization Detai ls LastModified Time None Recorded Concern Status LastModified by Organization Details LastModified Time None Recorded Advance Directives Directive None Recorded Payers Insurance Date Sequence Insurance Name Policy Number Policy Townsend Covered Member ID Townsend Member ID Guarantor Name 11/25/2021 1 [facility] (MEDICARE REPLACEMENT/A DVANTAGE - PPO) [id number] Lizeth Gongramon [id number] Lizeth Woodall Notes Date Note Type Note [...] family history of melanoma. OUMAR MCWILLIAMS MD [address] [place] [address], [phone], [facility] 08/27/2017 11:49:22 09/22/2018 text/html Established Jazlyn ent - no new concerns Monitor BCC, AKs Denies any other new, changing, or bleeding lesions, or other rashes, feels well , and in a good mood. Has no family history of melanoma. OUMAR MCWILLIAMS MD [address] [place] [address] [place], [address], [facility] 09/22/2018 12:41:31 11/17/2019 text/html Established Jazlyn ent - no new concerns pt dx with breast cancer 07/2017 Monitor BCC, AKs Denies any other new, changing, or bleeding lesions, or other rashes, feels well , and in a good mood. Has no family history of melanoma. OUMAR MCWILLIAMS MD [address] [place] [address] [place], [address], [facility] 11/17/2019 13:00:51 11/29/2020 text/html Established Jazlyn ent [...] family history of melanoma. OUMAR MCWILLIAMS MD [address] [place] [address], [phone], [facility] 11/29/2020 11:28:54 11/28/2021 text/html Established Jazlyn ent [...] history of melanoma. OUMAR MCWILLIAMS MD [address] [place], [address], [facility] 11/28/2021 11:04:23 OBGyn Episode No OBEpisode recorded.
--- OUTSIDE RECORDS SUMMARY | 2024-12-31 15:06 | XMS_ITS ---
Author Organization [facility] Address [address] [place] [address] Care Team Providers Care Air [employer]ore Name Role Phone Davon Durand MD Primary Care Provider [phone] Jailene Keating NP Unavailable Srinivasa Beaulieu MD Unavailable [phone] Sharmin Mancilla Unavailable Unavailable Estefania Underwood Unavailable [phone] Ceci Lomeli NP Unavailable Unavailable Singh Davis MD Unavailable [phone] Annabel Ojeda RN Unavailable [phone] Chrissy Radford RN Unavailable Unavailable Akosua Moss MD Unavailable [phone] Guerline Stern NP Unavailable [phone] Waylon Penn MD Unavailable [phone] Vic Moss MD Unavailable [phone] Active Problems Problem Noted Date Diagnosed Date Primary osteoarthritis of left knee 12/12/2023 Other constipation 01/16/2021 Senile osteoporosis 09/01/2020 History of breast cancer 10/23/2018 Uterovaginal prolapse, incomplete 06/24/2018 Uterine prolapse 06/18/2018 Overview (06/18/2018): Added automatically from request for surgery [id number] Screening for osteoporosis 05/19/2018 Pneumonitis 10/20/2017 Malignant neoplasm of right female breast ([facility]) 07/18/2017 Cancer Staging:Pathologic stage from 07/30/2017:Stage IA(pT1c, pN1mi(sn), cM0, G2, ER: Positive, FL: Positive, HER2: Negative, Oncotype DX score: 21) [...]
--- OUTSIDE RECORDS SUMMARY | 2024-12-31 15:06 | XMS_ITS | Encounter Summary ---
Author Organization [facility] Address [address] [place] [address] Care Team Providers Care Proposal Analyst Name Role Phone Davon Durand MD Primary Care Provider [phone] Jailene Keating NP Unavailable [phone] Srinivasa Beaulieu MD Unavailable [phone] Sharmin Mancilla Unavailable Unavailable Estefania Underwood Unavailable [phone] Ceci Lomeli NP Unavailable Unavailable Singh Davis MD Unavailable Annabel Ojeda RN Unavailable [phone] Chrissy Radford RN Unavailable Unavailable Akosua Moss MD Unavailable [phone] Guerline Stern NP Unavailable [phone] Waylon Penn MD Unavailable [phone] Vic Moss MD Unavailable [phone] Reason for Referral * PT/OT/ST (Routine) - Not Needed Specialty Diagnoses / Procedures Referred By Contac t Referred To Contact Physical Therapy Diagnoses Primary osteoarthritis of left knee Natanael Pelayo MD [address] [place] [address] Phone: tel: fax: [facility] Occupational [facility], [place] [address] [facility] [place] [address] Phone: tel: fax: Referral ID Status Reason Start Date Expiration Date V isits Requested Visits Authorized [id number] Not Needed 12/20/2023 12/19/2024 26 26 Encounter Details Date Type Department Care Team (Latest Contact Info) Description 12/12/2023 Preop Surgical Orders [facility] Physicians - Orthopaedics & Sports Medicine, [place] [address] [place] [address] Natanael Pelayo MD [address] [place] [address] Primary osteoarthritis of left knee (Primary Dx) [...] 05/06/2025 12:30 PM EST Appointment [facility] Medical Office Building, [address] [place] [address] 05/06/2025 1:30 PM EST Appointment [facility] Physicians - Surgical Oncology, [address] [place] [address] Akosua Moss MD [address] [facility] [address] [place] [address] 05/28/2025 12:15 PM EST Appointment [facility] [address] [place] [address] [place] [address] Srinivasa Beaulieu MD [address] [place] [address] 05/28/2025 12:30 PM EST Appointment [address] [place] [address] Scheduled Referrals Name Type Priority Associated Diagnoses Orde r Schedule AMB REFERRAL TO PHYSICAL THERAPY Outpatient Referral Routine Primary osteoarthritis of left knee Ordered: 12/20/2023 documented as of this encounter Results * ALBUMIN SERUM/PLASMA (01/06/2024 9:53 AM EDT) Albumin 4.3 3.5 - 5.0 g/dL [facility] Serum 01/06/2024 9:53 AM EDT 01/06/2024 3:38 PM EDT Natanael Pleayo MD CHEMISTRY ORDERABLES Final Re sult Performing Organization Address [facility] de Phone Number [facility] [address] * (ABNORMAL) HGB, A1C (GLYCOHEMOGLOBIN) (01/06/2024 9:53 AM EDT) Pathologist [facility] Hgb A1C 6.0(H) 4.0 - 5.6 % [facility] Comment: Reference Ranges for Hgb [...] Glycohemoglobin Standardization program (NGSP) and traceable to [facility]. Estimated Average Glucose 126(H) 68 - 114 mg/dL [facility] Whole Blood 01/06/2024 9:53 AM EDT 01/06/2024 4:25 PM EDT Natanael Pelayo MD CHEMISTRY ORDERABLES Final Re sult Performing Organization Address [facility] de Phone Number [facility] [address] * (ABNORMAL) BASIC METABOLIC PANEL (BMP=EP1) (01/06/2024 9:53 AM EDT) Pathologist [facility] Sodium 139 135 - 146 mmol/L [facility] Potassium 4.1 3.5 - 5.1 mmol/L [facility] Chloride 106 98 - 110 mmol/L [facility] CO2 25 22 - 29 mmol/L [facility] Anion Gap 8 5 - 13 mmol/L [facility] Comment:Anion gap calculatio n does [...] mL/min/1.73m2. Calcium 9.2 8.5 - 10.5 mg/dL [facility] Comment:Effective 10/18/2022, the calcium reference range has been updated. BUN/Creatinine Ratio 14 [facility] Serum 01/06/2024 9:53 AM EDT 01/06/2024 3:38 PM EDT us Natanael Pelayo MD CHEMISTRY ORDERABLES Final Re sult [facility] [address] * CBC (COMPLETE BLOOD COUNT) (01/06/2024 9:53 AM EDT) WBC 6.20 3.80 - 10.80 10*3/uL [facility] RBC 4.20 3.80 - 5.10 10*6/uL [facility] Hemoglobin 13.3 11.7 - 15.5 g/dL [facility] Hematocrit Blood 40.2 35.0 - 46.0 % [facility] MCV 95.7 80.0 - 100.0 fL [facility] MCH 31.7 27.0 - 33.0 pg [facility] MCHC 33.1 30.0 - 36.0 g/dL [facility] RDW 13.6 11.0 - 15.0 % [facility] Platelets 254 140 - 400 10*3/uL [facility] MPV 11.3 9.0 - 13.0 fL [facility] Whole Blood 01/06/2024 9:53 AM EDT 01/06/2024 4:25 PM EDT us Natanael Pelayo MD HEMATOLOGY ORDERABLES Final R esult [facility] [address] documented in this encounter Visit Diagnoses Diagnosis Primary osteoarthritis of left knee- Primary Primary localized osteoarthrosis, lower leg documented in this encounter Care Teams Proposal Analyst Relationship Specialty Start Date End Date Davon Durand MD PCP - General Family Medicine 08/30/15 Jailene Keating NP [address] [place] [address] Registered Nurse 03/04/18 Srinivasa Beaulieu MD [address] [place] [address] Hematology and Oncology 05/19/18 Sharmin Mancilla Brake Engineer Social Work 10/29/18 Estefania Underwood PA [address] [place] [address] Surgical Oncology 08/26/20 Ceci Lomeli NP [address] [place] [address] Nurse Practitioner Nurse Practitioner, Family 09/01/20 Singh Davis MD [address] [place] [address] General Surgery 01/12/21 Annabel Ojeda RN [address] [place] [id number] Registered Nurse 01/16/21 Chrissy Radford, RN Registered Nurse 07/11/21 Akosua Moss MD [address] [place] [address] Surgical Oncology 10/12/21 [place] [address] [place] [address] Nurse Practitioner Nurse Practitioner, Family 04/20/22 Waylon Penn MD [address] [facility] [address] [place] [address] Female Pelvic Medicine and Reconstructive Surgery 06/24/22 [place] [address] [place] [address] Otolaryngology 12/05/22 documented as of this encounter
--- OUTSIDE RECORDS SUMMARY | 2024-12-31 15:06 | XMS_ITS | Encounter Summary ---
Author Organization [facility] Address [address] [place] [address] Care Team Providers Care Food Production Worker Name Role Phone Davon Durand MD Primary Care Provider [phone] Jailene Keating NP Unavailable Srinivasa Beaulieu MD Unavailable [phone] Sharmin Mancilla Unavailable Unavailable Estefania Underwood Unavailable [phone] Ceci Lomeli NP Unavailable Unavailable Singh Davis MD Unavailable [phone] Annabel Ojeda RN Unavailable [phone] Chrissy Radford RN Unavailable Unavailable Akosua Moss MD Unavailable [phone] Guerline Stern NP Unavailable [phone] Waylon Penn MD Unavailable Vic Moss MD Unavailable [phone] Encounter Details Date Type Department Care Team (Late st Contact Info) Description 07/17/2017 Orders Only C-Level, Diagnostic Services [address] [place] [address] Desmond Duran, RT Screening for [...] 05/06/2025 12:30 PM EST Appointment [facility] Medical Office Building, [address] [place] [address] 05/06/2025 1:30 PM EST Appointment [facility] Physicians - Surgical Oncology, [address] [place] [address] Akosua Moss MD [address] [place] [address]. [address] [place] [address] 05/28/2025 12:15 PM EST Appointment [facility], [address] [place] [address] Srinivasa Beaulieu MD [address] [place] [address] 05/28/2025 12:30 PM EST Appointment [facility], [address] [place] [address] documented as of this encounter Visit Diagnoses Diagnosis Screening for osteoporosis Special screening for osteoporosis documented in this encounter Additional Health Concerns Infection Onset Date Last Indicated Resolved Time Pneumonia Comment:10/20/17; requires respiratory isolation. 10/21/2017 10/21/2017 10/24/2017 10:33 AM EDT documented as of this encounter Care Teams Food Production Worker Relationship Specialty Start Date End Date Davon Durand MD PCP - General Family Medicine 08/30/15 Jailene Keating NP [address] [place] [address] Registered Nurse 03/04/18 Srinivasa Beaulieu MD [address] [place] [address] Hematology and Oncology 05/19/18 Sharmin Mancilla Shared Services Manager Social Work 10/29/18 Estefania Underwood PA [address] [place] [address] Surgical Oncology 08/26/20 Ceci Lomeli NP [address] [place] [id number] Nurse Practitioner Nurse Practitioner, Family 09/01/20 Singh Davis MD [address] [place] [address] General Surgery 01/12/21 Annabel Ojeda RN [address] [place] [address] Registered Nurse 01/16/21 Chrissy Radford RN Registered Nurse 07/11/21 Akosua Moss MD [address] [place] [address] Surgical Oncology 10/12/21 [place] [address] [facility] [place], [place] [id number] Nurse Practitioner Nurse Practitioner, Family 04/20/22 Waylon Penn MD [address] [facility] [place] [address] Female Pelvic Medicine and Reconstructive Surgery 06/24/22 [place] [address] [facility] [place], [place] [id number] Otolaryngology 12/05/22 documented as of this encounter
[2024-12-31 15:56] LABS: T4 (Thyroxine) 8.8 ug/dl (5.53-11.0)
[2024-12-31 16:09] LABS: Thyroid Stimulating Hormone 0.98 uIU/mL (0.465-4.68)
== END 2024-12-31 23:59 | disposition home or self-care (01) ==
LOC: LAB.DROPOF 14:42
PROVIDERS: PCP Family Medicine; Visit Provider Family Medicine
DX: E05.90 Thyrotoxicosis, unspecified without thyrotoxic crisis or storm (principal); R79.89 Other specified abnormal findings of blood chemistry
CPT/HCPCS: 84436; 84443